=== PATIENT | female | born 1965 | race Caucasian/White ===

== ENCOUNTER 2017-10-07 06:32 | Emergency (ER) | payer OTHER ==
[~2017-10-07] VITALS: Ht 157.5 cm; Wt 59.0 kg
[~2017-10-07 06:32] MED LIST: ALBU90I INH; ALBU90OI61 INH; ALPR1; BUPR150T2; CEPH500 PO; CLIN300 PO; CLON.5; CODGUAEL PO; CRUTCH3 USE; DIAZ10; DIPATR PO; DIPH50 PO; DOXY100 PO; DULO30; ESCI10; ESCI20; ESTR.05PBW TOP; ESTR2; FENT75TP TOP; HYDACE10B PO; HYDACE5; HYDACE5 PO; HYDACE5325 PO; HYDPAM50 PO; HYOS0.375T; IBUHYD PO; L LYSINE; LAVAP17G PO; LEVSOD125; LEVSOD200; LEVSOD25; LITH300C; LITH300CA; LORA1; LORA2 PO; METH10; METO10 PO; NAPR500 PO; OLAN10; OMEP20ER; ONDA8 PO; OXYACE5T PO; OXYACE7.5T PO; OXYC10TA19 PO; PANT40; PROACE100 PO; PROM25; PROM25 PO; PROM25S PR; PROP10 PO; Prednisone10 MG PO; RXCYCL10 PO; RXDIPATR PO; RXHYD5325 PO; RXLORA1 PO; RXOXYACE PO; TRIA80TC TOP; TRIM100 PO; ZIPR80; [UNRECOGNIZED DRUG - REMARK]; [UNRECOGNIZED DRUG - REMARK]
[2017-10-07 07:34] LABS: BASOPHILS ABSOLUTE AUTO 0.07 K/mm3 (0.00-0.23); BASOPHILS PERCENT AUTO 1 % (0-2); EOSINOPHILS ABSOLUTE AUTO 0.19 K/mm3 (0.00-0.68); EOSINOPHILS PERCENT AUTO 2 % (0-6); Hematocrit 39.2 % (33.0-51.0); Hemoglobin 13.5 g/dL (11.5-16.0); IMMATURE GRAN ABSOLUTE AUTO 0.04 K/mm3 (0.00-0.10); IMMATURE GRAN PERCENT AUTO 0 % (0-1); LYMPHOCYTES ABSOLUTE AUTO 4.09 K/mm3 (0.84-5.20); LYMPHOCYTES PERCENT AUTO 32 % (21-46); MONOCYTES PERCENT AUTO 13 % (4-13); Mean Corpuscular HGB Conc 34.4 g/dL (31.5-36.5); Mean Corpuscular Volume 90 fL (80-100); NEUTROPHILS ABSOLUTE AUTO 6.77 K/mm3 (1.96-9.15); NEUTROPHILS PERCENT AUTO 53 % (41-73); Platelet Count 376 K/mm3 (150-400); RDW Coefficient Variation 12.3 % (11.7-14.2); RDW Standard Deviation 40.9 fL (35.1-46.3); Red Blood Cell Count 4.36 M/mm3 (3.80-5.20); White Blood Cell Count 12.86 K/mm3 (4.00-11.30)
[2017-10-07 07:51] LABS: Alanine Aminotransfer (ALT/SGP 26 U/L (12-78); Albumin, Blood 3.2 g/dL (3.4-5.0); Albumin/Globulin Ratio 0.8 (0.8-1.8); Alk Phos 110 U/L (50-136); Anion Gap 7 mmol/L (6-16); Aspartate Aminotrans (AST/SGOT 17 U/L (12-37); Bilirubin, Total 0.6 mg/dL (0.1-1.0); Blood Urea Nitrogen 8 mg/dL (8-24); Bun/Creatinine Ratio 12.8 (12.0-20.0); CO2, Blood 28 mmol/L (21-32); Calcium, Blood 8.8 mg/dL (8.5-10.1); Chloride, Blood 106 mmol/L (98-108); Creatinine, Blood 0.63 mg/dL (0.40-1.00); Globulin, Blood 3.8 g/dL (2.2-4.0); Glomerular Filtration Rate >60 (60-); Glucose, Blood 97 mg/dL (70-99); Potassium, Blood 3.4 mmol/L (3.5-5.5); Sodium, Blood 141 mmol/L (136-145)
[2017-10-07] MEDS ORDERED: LOPE2C PO (09:44)
[2017-10-07] MEDS ORDERED: PROM25 PO (09:44)
[2017-10-07] MEDS ORDERED: BENTYL10 MG PO (09:44)
== END 2017-10-07 10:01 | disposition home or self-care (01) ==
LOC: ER 06:32
PROVIDERS: Emergency Medicine
DX: A08.4 Viral intestinal infection, unspecified (principal); Z90.710 Acquired absence of both cervix and uterus; Z90.49 Acquired absence of other specified parts of digestive tract; Z90.89 Acquired absence of other organs; Z88.6 Allergy status to analgesic agent; Z88.1 Allergy status to other antibiotic agents; Z88.2 Allergy status to sulfonamides; Z88.5 Allergy status to narcotic agent; Z79.899 Other long term (current) drug therapy
CPT/HCPCS: 80053; 83690; 85025; 96361; 96374; 99284; J2405; J7030

== ENCOUNTER 2019-06-12 07:38 | Day surgery (SDC) | payer OTHER ==
[~2019-06-12] VITALS: Ht 157.5 cm; Wt 75.7 kg
[~2019-06-12 07:38] MED LIST changes: +ALBU2.5V5 INH; +ALBU90OI INH; +Adipex-P37.5 MG PO; +BENTYL10 MG PO; +CLON.5 PO; +CYAN1000I IM; +LOPE2C PO; +MONT10T PO; +OXYC10ER PO; +QVAR REDIHALE10.6 G1 INH; +SYNTHROID175 MCG PO
== END 2019-06-12 09:51 | disposition home or self-care (01) ==
LOC: ORSCSDS 07:38
PROVIDERS: Internal Medicine Gastroenterology
PROC: 0DJD8ZZ Inspection of Lower Intestinal Tract, Via Natural or Artificial Opening Endoscopic (ICD-10-PCS; principal; 2019-06-12 09:00)
DX: R10.32 Left lower quadrant pain (principal); Z86.010 Personal history of colon polyps; D64.9 Anemia, unspecified; R19.4 Change in bowel habit; Z79.899 Other long term (current) drug therapy
CPT/HCPCS: J0461; J2405; J2704; J7120

== ENCOUNTER → 2020-01-16 | Outpatient (CLI) | payer OTHER | END | disposition home or self-care (01) | LOC: LAB SHORT 12:04 → PLD 12:04 | DX: L98.9 Disorder of the skin and subcutaneous tissue, unspecified (principal) | CPT/HCPCS: 88305; 88312 ==

== ENCOUNTER → 2020-01-16 | Outpatient (CLI) | payer OTHER | END | disposition home or self-care (01) | LOC: LAB SHORT 11:58 → LAB 11:58 | DX: L08.0 Pyoderma (principal) | CPT/HCPCS: 87070; 87205 ==

== ENCOUNTER 2020-01-23 04:43 | Emergency (ER) | payer OTHER ==
[~2020-01-23] VITALS: Ht 157.5 cm; Wt 74.8 kg
[2020-01-23] MEDS ORDERED: METF500 (05:00)
== END 2020-01-23 05:08 | disposition home or self-care (01) ==
LOC: ER 04:43
DX: L03.211 Cellulitis of face (principal); M79.7 Fibromyalgia; Z88.1 Allergy status to other antibiotic agents; Z88.2 Allergy status to sulfonamides; Z88.5 Allergy status to narcotic agent; Z88.6 Allergy status to analgesic agent; Z79.899 Other long term (current) drug therapy
CPT/HCPCS: 99282

== ENCOUNTER 2020-02-20 20:53 | Emergency (ER) | payer OTHER ==
[~2020-02-20] VITALS: Ht 157.5 cm; Wt 77.1 kg
[~2020-02-20 20:53] MED LIST changes: +METF500
[2020-02-20] MEDS ORDERED: KETO200 PO (21:30)
[2020-02-20] MEDS ORDERED: MUPIROCIN1 GM TP (21:31)
[2020-02-20] MEDS ORDERED: KETO15TC TOP (21:32)
[2020-02-20] MEDS ORDERED: Triamcinolone A15 G3 (21:33)
[2020-02-20] MEDS ORDERED: ALLERCLEAR10 MG PO (22:16)
== END 2020-02-20 22:37 | disposition home or self-care (01) ==
LOC: ER 20:53
DX: L30.9 Dermatitis, unspecified (principal); E03.9 Hypothyroidism, unspecified; Z88.1 Allergy status to other antibiotic agents; Z88.2 Allergy status to sulfonamides; Z88.5 Allergy status to narcotic agent; Z88.6 Allergy status to analgesic agent; Z79.899 Other long term (current) drug therapy; Z79.84 Long term (current) use of oral hypoglycemic drugs
CPT/HCPCS: 99282

== ENCOUNTER → 2020-03-13 | Outpatient (CLI) | payer OTHER ==
[~2020-03-13] MED LIST changes: +ALLERCLEAR10 MG PO; +KETO15TC TOP; +KETO200 PO; +MUPIROCIN1 GM TP; +Triamcinolone A15 G3
== END | disposition home or self-care (01) ==
LOC: LAB SHORT 19:10 → LAB 19:10
DX: S50.911A Unspecified superficial injury of right forearm, initial encounter (principal); S50.912A Unspecified superficial injury of left forearm, initial encounter; S80.921A Unspecified superficial injury of right lower leg, initial encounter; S80.922A Unspecified superficial injury of left lower leg, initial encounter; S70.921A Unspecified superficial injury of right thigh, initial encounter; S70.922A Unspecified superficial injury of left thigh, initial encounter; L02.425 Furuncle of right lower limb; L02.426 Furuncle of left lower limb; L02.02 Furuncle of face; L21.8 Other seborrheic dermatitis; D22.5 Melanocytic nevi of trunk; D22.71 Melanocytic nevi of right lower limb, including hip; L81.8 Other specified disorders of pigmentation; B37.2 Candidiasis of skin and nail
CPT/HCPCS: 87070; 87205

== ENCOUNTER → 2020-05-23 | Outpatient (CLI) | payer OTHER | LOC: LAB 14:04 → LAB SHORT 14:04 | DX: L08.9 Local infection of the skin and subcutaneous tissue, unspecified (principal); L71.8 Other rosacea; B35.1 Tinea unguium; B35.3 Tinea pedis; L20.89 Other atopic dermatitis; L02.02 Furuncle of face; L29.8 Other pruritus; L21.8 Other seborrheic dermatitis | CPT/HCPCS: 87070; 87205 ==

== ENCOUNTER → 2021-04-18 | Outpatient (CLI) | payer OTHER | LOC: LAB 16:07 → LAB SHORT 16:07 | DX: B88.9 Infestation, unspecified (principal) | CPT/HCPCS: 87177; 87209 ==

== ENCOUNTER → 2021-05-13 | Outpatient (CLI) | payer OTHER | END | disposition home or self-care (01) | LOC: LAB SHORT 09:47 → LAB 09:47 | DX: R23.4 Changes in skin texture (principal) | CPT/HCPCS: 87210; 88305; 88312 ==

== ENCOUNTER 2023-06-11 11:21 | Inpatient (IN) | payer OTHER ==
[~2023-06-11] VITALS: Ht 157.5 cm; Wt 71.8 kg
[2023-06-11 12:21] LABS: BASOPHILS ABSOLUTE AUTO 0.11 K/mm3 (0.00-0.23); BASOPHILS PERCENT AUTO 1 % (0-2); EOSINOPHILS ABSOLUTE AUTO 0.19 K/mm3 (0.00-0.68); EOSINOPHILS PERCENT AUTO 1 % (0-6); Hematocrit 36.6 % (33.0-51.0); Hemoglobin 13.6 g/dL (11.5-16.0); IMMATURE GRAN ABSOLUTE AUTO 0.07 K/mm3 (0.00-0.10); IMMATURE GRAN PERCENT AUTO 0 % (0-1); LYMPHOCYTES ABSOLUTE AUTO 2.84 K/mm3 (0.84-5.20); LYMPHOCYTES PERCENT AUTO 16 % (21-46); MONOCYTES ABSOLUTE AUTO 1.67 K/mm3 (0.16-1.47); MONOCYTES PERCENT AUTO 9 % (4-13); Mean Corpuscular HGB 33.7 pg (26.0-34.0); Mean Corpuscular HGB Conc 37.2 g/dL (31.5-36.5); Mean Corpuscular Volume 91 fL (80-100); NEUTROPHILS ABSOLUTE AUTO 13.03 K/mm3 (1.96-9.15); NEUTROPHILS PERCENT AUTO 73 % (41-73); Platelet Count 379 K/mm3 (150-400); RDW Standard Deviation 52.9 fL (35.1-46.3); Red Blood Cell Count 4.03 M/mm3 (3.80-5.20); White Blood Cell Count 17.91 K/mm3 (4.00-11.30)
[2023-06-11 13:02] LABS: Albumin, Blood 2.6 g/dL (3.4-5.0); Albumin/Globulin Ratio 0.8 (0.8-1.8); Bilirubin, Total 25.4 mg/dL (0.1-1.0); Bun/Creatinine Ratio 16.7 (12.0-20.0); Calcium, Blood 8.8 mg/dL (8.5-10.1); Creatinine, Blood 0.6 mg/dL (0.40-1.00); Globulin, Blood 3.2 g/dL (2.2-4.0); Potassium, Blood 3.1 mmol/L (3.5-5.5); Total Protein, Blood 5.8 g/dL (6.4-8.2)
[2023-06-11 15:52] LABS: International Normalized Ratio 1.9; Prothrombin Time Results 19.2 Sec (9.7-11.5)
[2023-06-11 16:10] LABS: Bilirubin, Direct 18.6 mg/dL (0.0-0.3); Bilirubin, Indirect 4.6 mg/dL (0.1-0.7); Bilirubin, Total 23.2 mg/dL (0.1-1.0)
[2023-06-11] MEDS ORDERED: Doxycycline Mo100 M1 (18:17)
[2023-06-11] MEDS ORDERED: ALBENDAZOLE200 MG PO (18:19)
[2023-06-11] MEDS ORDERED: NITAZOXANIDE500 MG PO (18:21)
--- NOTE | 2023-06-11 18:50 | NUR ---
ADMIT AND SHIFT SUMMARY PATIENT ADMITTED TO MEDICAL FLOOR AT 1805. PATIENT ACTIVELY BLEEDING FROM NOSE. PATIENT STATES THAT SHE HAS BEEN BLEEDING SINCE THIS MORNING. PATIENT JAUNDICE. PATIENT STATES THIS IS NEW FOR HER. PATIENT STARTED SOME NEW MEDICATIONS RECENTLY AND FEELS THAT THIS IS WHAT IS CAUSING IT. PATIENT STATES SHE FEELS NAUSEATED BECAUSE SHE FEELS THE BLOOD DRIPIING DOWN INTO HER STOMACH. FAMILY AT BEDSIDE AND VERY ANXIOUS.
[2023-06-11 23:58] VITALS: BP 120/61
[2023-06-12 03:26] VITALS: BP 114/55
[2023-06-12 05:27] LABS: BASOPHILS ABSOLUTE AUTO 0.12 K/mm3 (0.00-0.23); BASOPHILS PERCENT AUTO 1 % (0-2); EOSINOPHILS ABSOLUTE AUTO 0.49 K/mm3 (0.00-0.68); EOSINOPHILS PERCENT AUTO 3 % (0-6); Hemoglobin 11.3 g/dL (11.5-16.0); IMMATURE GRAN ABSOLUTE AUTO 0.08 K/mm3 (0.00-0.10); IMMATURE GRAN PERCENT AUTO 1 % (0-1); LYMPHOCYTES ABSOLUTE AUTO 4.97 K/mm3 (0.84-5.20); LYMPHOCYTES PERCENT AUTO 30 % (21-46); MONOCYTES ABSOLUTE AUTO 1.93 K/mm3 (0.16-1.47); MONOCYTES PERCENT AUTO 12 % (4-13); Mean Corpuscular HGB 33.6 pg (26.0-34.0); Mean Corpuscular HGB Conc 36.5 g/dL (31.5-36.5); Mean Corpuscular Volume 92 fL (80-100); Mean Platelet Volume 11.2 fL (9.1-12.4); NEUTROPHILS ABSOLUTE AUTO 9.14 K/mm3 (1.96-9.15); NEUTROPHILS PERCENT AUTO 55 % (41-73); Platelet Count 363 K/mm3 (150-400); RDW Coefficient Variation 16.4 % (11.7-14.2); RDW Standard Deviation 54.6 fL (35.1-46.3); Red Blood Cell Count 3.36 M/mm3 (3.80-5.20); White Blood Cell Count 16.73 K/mm3 (4.00-11.30)
[2023-06-12 05:35] LABS: Source, Urine Clean Catch
[2023-06-12 05:41] LABS: Blood, Urine 4+ (Neg); Glucose Qualitative, Urine Neg (Neg); Ketones, Urine 1+ (Neg); Leukocyte Esterase, Urine 1+ (Neg); Nitrite, Urine Pos (Neg); Protein, Urine 2+ (Neg); Urobilinogen, Urine 4+ (Normal)
[2023-06-12 05:47] LABS: Appearance, Urine Hazy (Clear); Bilirubin, Urine 3+ (Neg); Color, Urine Amber (P-Yellow)
[2023-06-12 05:54] LABS: Amorphous Mod (0-Heavy); Bacteria Mod /hpf; Red Blood Cells, Urine 0-2 /hpf (0-2); Squamous Epithelial Cells Few /hpf (Few)
[2023-06-12 05:56] LABS: U Amphetamine Screen DETECTED; U Barbituate Screen Not Detected; U Benzodiazapine Screen Not Detected; U Buprenorphine Screen Not Detected; U Cannabinoids Screen Not Detected; U Cocaine Screen Not Detected; U Methadone Screen Not Detected; U Methamphetamine Screen DETECTED; U Opiates Screen Not Detected; U Oxycodone Screen Not Detected; U Phencyclidine Screen Not Detected; U Propoxyphene Screen Not Detected
[2023-06-12 06:09] LABS: Albumin, Blood 2.2 g/dL (3.4-5.0); Albumin/Globulin Ratio 0.8 (0.8-1.8); Bilirubin, Total 23.9 mg/dL (0.1-1.0); Bun/Creatinine Ratio 28.4 (12.0-20.0); Calcium, Blood 8.3 mg/dL (8.5-10.1); Creatinine, Blood 0.63 mg/dL (0.40-1.00); Globulin, Blood 2.6 g/dL (2.2-4.0); Potassium, Blood 3.1 mmol/L (3.5-5.5); Total Protein, Blood 4.8 g/dL (6.4-8.2)
--- NOTE | 2023-06-12 07:17 | NUR ---
SHIFT SUMMARY PT IS A&O X4, ON RA, VSS, NS INFUSING @ 75 ML/HR, JAUNDICED SKIN NOTED, ENULOSE STARTED. DENIES PAIN, NO EPISTAXIS NOTED SINCE I ASSUMED CARE, PT IS RESTING QUIETLY THIS AM, CALL LIGHT IN REACH, REPORT GIVEN TO DAY RN
[2023-06-12 07:29] VITALS: BP 125/70
--- NOTE | 2023-06-12 08:47 | NUR ---
PT REQUESTING ICE CHIPS. CALLED HOSPITALIST AND DISCUSSED NPO ORDER. HOSPITALIST GAVE OK FOR ICE CHIPS FOR NOW, STATES WILL REVIEW AND UPDATE WITH FURTHER ORDERS FOR DIET.
[2023-06-12 16:30] VITALS: BP 111/50
--- NOTE | 2023-06-12 18:20 | NUR ---
SHIFT SUMMARY: MEL IS A&OX4. VSS, NO ACUTE EVENTS THIS SHIFT. PT DID REPORT NAUSEA AND AN EPISODE OF EMESIS FOR WHICH SHE WAS MEDICATED PER MAR AND REPORTS RELIEF. SHE IS CURRENTLY TOLERATING PO INTAKE WELL. IV TO RIGHT HAND PATENT. SHE IS A ONE-PERSON STANDBY ASSIST AND REPORTS THAT THE LACTULOSE HAS PRODUCED BOWEL MOVEMENTS. SHE DENIES ANY DIFFICULTY URINATING. SHE IS SITTING UP IN BED WITH THE CALL LIGHT IN REACH, HER MOTHER IS AT BEDSIDE. WCTM UNTIL REPORT IS GIVEN TO DIRECTOR BUILDING RN.
--- NOTE | 2023-06-12 19:31 | NUR ---
NURSE NOTE RESTING QUIETLY. NO NOTED S/S ACUTE DISTRESS. CALL LIGHT IN REACH.
[2023-06-12 20:00] VITALS: BP 117/68
[2023-06-13 04:14] VITALS: BP 129/70
--- NOTE | 2023-06-13 04:24 | NUR ---
FIT MODEL SUMMARY VSS. SKIN REMAINS JAUNDICED. TOLERATING LACTULOSE. JOKES WITH NURSE AT HS. HAS BEEN RESTING QUIETLY WITH FEW INTERRUPTIONS. UP AD ARMANDO WITH STAND BY ASSIST. NO NOTED S/S ACUTE DISTRESS. CALL LIGHT IN REACH. WILL CONTINUE TO MONITOR.
[2023-06-13 04:48] LABS: Hemoglobin 10.5 g/dL (11.5-16.0); Mean Corpuscular HGB 34.2 pg (26.0-34.0); Mean Corpuscular HGB Conc 37.5 g/dL (31.5-36.5); Mean Corpuscular Volume 91 fL (80-100); Mean Platelet Volume 10.6 fL (9.1-12.4); Platelet Count 360 K/mm3 (150-400); RDW Coefficient Variation 16.4 % (11.7-14.2); RDW Standard Deviation 53.7 fL (35.1-46.3); Red Blood Cell Count 3.07 M/mm3 (3.80-5.20); White Blood Cell Count 14.75 K/mm3 (4.00-11.30)
[2023-06-13 05:18] LABS: Albumin, Blood 2.1 g/dL (3.4-5.0); Albumin/Globulin Ratio 0.8 (0.8-1.8); Bilirubin, Total 23.4 mg/dL (0.1-1.0); Bun/Creatinine Ratio 14.7 (12.0-20.0); Calcium, Blood 8.1 mg/dL (8.5-10.1); Creatinine, Blood 0.75 mg/dL (0.40-1.00); Globulin, Blood 2.6 g/dL (2.2-4.0); Potassium, Blood 3.2 mmol/L (3.5-5.5); Thyroid Stimulating Hormone 0.296 uIU/mL (0.360-4.800); Total Protein, Blood 4.7 g/dL (6.4-8.2)
[2023-06-13 07:48] VITALS: BP 135/73
[2023-06-13 15:07] VITALS: BP 129/73
--- NOTE | 2023-06-13 17:19 | NUR ---
SHIFT SUMMARY: MEL IS A&OX4. VSS, NO ACUTE EVENTS THIS SHIFT. SHE IS TOLERATING PO INTAKE WELL AND HAS REPORTED ONE BOWEL MOVEMENT. REQUESTED PT KEEP STAFF UPDATED ON BOWEL MOVEMENTS TO ALLOW HOSPITALIST TO TITRATE DOSE OF LACTULOSE. SHE IS A ONE-PERSON STANDBY ASSIST TO THE BATHROOM. IV TO R WRIST PATENT. SHE IS LYING IN BED WITH THE CALL LIGHT IN REACH. WCTM UNTIL REPORT IS GIVEN TO RAG CUTTING MACHINE OPERATOR RN.
[2023-06-13 19:42] VITALS: BP 127/77
--- NOTE | 2023-06-14 00:04 | NUR ---
NURSE NOTE C/O "BLOATNG", NAUSEA AND PAIN I ABD, AMS. ALSO C/O TINGLING OF ARMS. SKIN REMAINS JAUNDICED. ZOFRAN ADMIN EARLIER AND REGLAN ADMIN AT THIS TIME. MD NOTIFIED OF BLOATING AND PAIN. MD TO REVIEW CHART AND WILL PLACE ORDERS. CALL LIGHT IN REACH. WILL CONTINUE TO MONITOR
[2023-06-14 04:20] VITALS: BP 120/61
--- NOTE | 2023-06-14 05:12 | NUR ---
WINDOW SYSTEMS ADMINISTRATOR SUMMARY VSS. C/O INTERMITTENT NAUESA AND "BLOATING" EARLIER. MD WAS NOTIFIED AND MEDS ORDERED. ZOFRAN AND REGLAN IV AND SEMETHICONE PO ADMINISTERED. (SEE MAR FOR DETAILS). HAS BEEN RSETING QUIETLY WITH FEW INTERRUPTIONS SINCE. CALL LIGHT IN REACH. WILL CONTINUE TO MONITOR
[2023-06-14 05:58] LABS: Albumin, Blood 2.1 g/dL (3.4-5.0); Albumin/Globulin Ratio 0.8 (0.8-1.8); Bilirubin, Total 23.1 mg/dL (0.1-1.0); Bun/Creatinine Ratio 11.9 (12.0-20.0); Calcium, Blood 8.4 mg/dL (8.5-10.1); Creatinine, Blood 0.75 mg/dL (0.40-1.00); Globulin, Blood 2.6 g/dL (2.2-4.0); Potassium, Blood 3.1 mmol/L (3.5-5.5); Total Protein, Blood 4.7 g/dL (6.4-8.2)
[2023-06-14 06:08] LABS: HBSAG SCREEN Negative (Negative); HCV AB Non Reactive (Non Reactive); HEP A AB, IGM Negative (Negative); HEP B CORE AB, IGM Negative (Negative)
[2023-06-14 07:39] VITALS: BP 135/68
[2023-06-14 15:52] VITALS: BP 114/64
--- NOTE | 2023-06-14 18:13 | NUR ---
SHIFT SUMMARY FATIGUED, ORIENTED WHEN AWAKE. PLEASANT AND COOPERATIVE. WEAK, NAUSEATED, AND HEADACHE. MEDICATED PER EMAR. TOLERATING HEPATIC DIET AND LIQUIDS. SKIN JAUNDICED AND NOTED DISTENDED ABD. PATIENT REPORTS FEELING BLOATED. LACTULOSE INCREASED TO TID, NO BM THIS SHIFT. SBA WITH FWW TO AMBULATE IN HALLS. MOTHER VISITED DURING DAY SHIFT. TOOK A SHOWER. EATING DINNER AT THIS TIME.
[2023-06-14 19:58] VITALS: BP 120/64
[2023-06-14] MEDS ORDERED: MELATONIN5 M1 PO (20:21)
[2023-06-15 04:35] VITALS: BP 114/56
--- NOTE | 2023-06-15 04:41 | NUR ---
SUMMARY- PT A/O X3, WITHDRAWN, STATES SHE FEELS BAD WITH FLU LIKE SYMPTOMS; WEAK AND COLD. PT IS JAUNDICED. BEGINNING OF SHIFT WAS THROWING UP. MEDICATED WITH ZOFRAN WHICH SEEMED TO RESOLVE NAUSEA PT HAD SOME PO INTAKE A FEW HOURS LATER INCLUDING JUICE AND CRACKERS. PT HAD 2 BM AT 2300 AND 0100, PT STATES LG LOOSE AND BROWN, FLUSHED, SO RN COULD NOT VISUALIZE. SLEPT MOST OF THE NIGHT, BUT STATES SHE AWAKENS FREQ. REQ MELATONIN FOR FOLLOWING NIGHT. ORDER RECEIVED. ALSO RECEIVED ORDER FOR KCL REPLACEMENT THIS AM PER DR BILL. RN CALLED HOSPITALIST MENA AT 2100 06/14 WITH NO RETURN CALL. WILL REPORT TO DAY RN.
[2023-06-15 05:04] LABS: BASOPHILS ABSOLUTE AUTO 0.12 K/mm3 (0.00-0.23); BASOPHILS PERCENT AUTO 1 % (0-2); EOSINOPHILS ABSOLUTE AUTO 0.56 K/mm3 (0.00-0.68); EOSINOPHILS PERCENT AUTO 4 % (0-6); Hematocrit 30.4 % (33.0-51.0); Hemoglobin 11.1 g/dL (11.5-16.0); IMMATURE GRAN ABSOLUTE AUTO 0.14 K/mm3 (0.00-0.10); IMMATURE GRAN PERCENT AUTO 1 % (0-1); LYMPHOCYTES ABSOLUTE AUTO 4.71 K/mm3 (0.84-5.20); LYMPHOCYTES PERCENT AUTO 31 % (21-46); MONOCYTES ABSOLUTE AUTO 1.84 K/mm3 (0.16-1.47); MONOCYTES PERCENT AUTO 12 % (4-13); Mean Corpuscular HGB 34.2 pg (26.0-34.0); Mean Corpuscular HGB Conc 36.5 g/dL (31.5-36.5); Mean Corpuscular Volume 94 fL (80-100); Mean Platelet Volume 10.7 fL (9.1-12.4); NEUTROPHILS ABSOLUTE AUTO 7.89 K/mm3 (1.96-9.15); NEUTROPHILS PERCENT AUTO 52 % (41-73); Platelet Count 343 K/mm3 (150-400); RDW Coefficient Variation 17.2 % (11.7-14.2); RDW Standard Deviation 56.5 fL (35.1-46.3); Red Blood Cell Count 3.25 M/mm3 (3.80-5.20); White Blood Cell Count 15.26 K/mm3 (4.00-11.30)
[2023-06-15 05:43] LABS: Albumin, Blood 2.1 g/dL (3.4-5.0); Albumin/Globulin Ratio 0.8 (0.8-1.8); Bilirubin, Total 23.8 mg/dL (0.1-1.0); Bun/Creatinine Ratio 13.2 (12.0-20.0); Calcium, Blood 8.3 mg/dL (8.5-10.1); Creatinine, Blood 0.76 mg/dL (0.40-1.00); Globulin, Blood 2.5 g/dL (2.2-4.0); Potassium, Blood 3.1 mmol/L (3.5-5.5); Total Protein, Blood 4.6 g/dL (6.4-8.2)
[2023-06-15 07:45] VITALS: BP 116/61
--- NOTE | 2023-06-15 16:02 | NUR ---
NOTE PT RESTING QUIETLY. VSS. TOLERATING LAC TULOSE. APPEARS MORE CLEAR. CONVERSATION FASTER, LESS CONVOLUTED. PT MOTHER CAME AND MET WITH MEDICAL TEAM. DENIED PAIN AND NAUSEA. BM X2 TODAY. SKIN CONTINUES TO BE JAUNDICED. RA. BED LOW AND LOCKED. CALL LIGHT WITH IN REACH. CONTINUE POC.
[2023-06-15 16:35] VITALS: BP 121/69
[2023-06-15 20:07] VITALS: BP 127/74
[2023-06-16 03:19] VITALS: BP 125/73
--- NOTE | 2023-06-16 04:41 | NUR ---
SHIFT SUMMARY PATIENT MEDICATED FOR NASEA AND HEADACHE WITH SOME RELIEF FOR SEVERAL HOURS. NAUSEA RETURNED AND PATIENT VOMITED. ADDITIONAL ZOFRAN GIVEN. PATIENT REPORTS DISCOMFORT IN THE ABDOMENT INCREASING AND PUSHING UP TOWARD HER LUNGS. ABDOMEN CONTINUES TO BE DISTENDED BUT SOFT. BOWEL TONES NORMOACTIVEX4 QUADRANTS. SHE C/O EXCESSIVE GAS ALSO, MEDICATED PER EMAR WITH SIMETHICONE. BED IN LOW POSITION, CALL LIGHT IN REACH. PATIENT CALLS APPROPRIATLEY. WILL CONTINUE TO MONITOR.
[2023-06-16 05:44] LABS: Hematocrit 29.4 % (33.0-51.0); Hemoglobin 10.7 g/dL (11.5-16.0); Mean Corpuscular HGB 34.5 pg (26.0-34.0); Mean Corpuscular HGB Conc 36.4 g/dL (31.5-36.5); Mean Corpuscular Volume 95 fL (80-100); Mean Platelet Volume 10.9 fL (9.1-12.4); Platelet Count 348 K/mm3 (150-400); RDW Coefficient Variation 17.8 % (11.7-14.2); RDW Standard Deviation 58.2 fL (35.1-46.3); White Blood Cell Count 12.42 K/mm3 (4.00-11.30)
[2023-06-16 06:13] LABS: BAND PERCENT MAN 2 % (0-8); BASOPHILS PERCENT MAN 0 % (0-2); EOSINOPHILS ABSOLUTE MAN 0.74 K/mm3 (0.00-0.68); EOSINOPHILS PERCENT MAN 6 % (0-6); LYMPHOCYTES ABSOLUTE MAN 3.22 K/mm3 (0.84-5.20); LYMPHOCYTES PERCENT MAN 26 % (21-46); MONOCYTES ABSOLUTE MAN 0.86 K/mm3 (0.16-1.47); MONOCYTES PERCENT MAN 7 % (4-13); NEUTROPHILS ABSOLUTE MAN 7.57 K/mm3 (1.96-9.15); SEG NEUTROPHILS PERCENT MAN 59 % (41-73); TOTAL CELLS COUNTED 100
[2023-06-16 06:15] LABS: Albumin/Globulin Ratio 0.7 (0.8-1.8); Bilirubin, Total 23.4 mg/dL (0.1-1.0); Bun/Creatinine Ratio 11.8 (12.0-20.0); Calcium, Blood 8.6 mg/dL (8.5-10.1); Creatinine, Blood 0.85 mg/dL (0.40-1.00); Globulin, Blood 2.7 g/dL (2.2-4.0); Potassium, Blood 3.1 mmol/L (3.5-5.5); Total Protein, Blood 4.7 g/dL (6.4-8.2)
[2023-06-16 07:37] VITALS: BP 115/64
[2023-06-16 15:15] VITALS: BP 122/57
[2023-06-16 17:22] LABS: Mean Platelet Volume 10.9 fL (9.1-12.4); Platelet Count 334 K/mm3 (150-400)
[2023-06-16 17:41] LABS: International Normalized Ratio 1.68; Prothrombin Time Results 17.1 Sec (9.7-11.5)
--- NOTE | 2023-06-16 18:53 | NUR ---
NOTE PT LAERT. SHE HAS HAD A ROUGH DAY TODAY. NOT FEELING WELL YESTERDAY. SHE WAS STARTED ON LASIX AND ALDACTONE TODAY. POOR APPETITE. NUASEA HAS BEEN PROBLEMATIC FOR HER. ZOFRAN 8MG GIVEN IV X1. DIDN'T HELP MUCH. FAMILY VISITED THIS EVENING. NO REPORTED BM TODAY. VSS. MEDICATED FOR GENERALIZED BODY ACHE WITH IBUPROFEN. UP AD ARMANDO IN ROOM. GAIT STEADY. CONTINUE POC.
[2023-06-16 21:04] VITALS: BP 111/51
--- NOTE | 2023-06-17 03:21 | NUR ---
MOLD ENGRAVER SUMMARY VSS. LETHARGIC WITH INTERMITTENT N/V. HAS RECEIVED ANTINAUSEA MEDS INTERMITTENTLY THROUGH SHIFT - SEE MAR FOR DETAILS. HOB ELEVATED FOR BREATHING COMFORT AND POTENTIAL ASPIRATION. CURRENTLY RESTING QUIETLY. CALL LIGHT IN REACH. WILL CONTINUE TO MONITOR.
[2023-06-17 04:58] VITALS: BP 117/62
[2023-06-17 06:34] LABS: Albumin, Blood 2.1 g/dL (3.4-5.0); Albumin/Globulin Ratio 0.8 (0.8-1.8); Bilirubin, Total 23.7 mg/dL (0.1-1.0); Calcium, Blood 8.4 mg/dL (8.5-10.1); Creatinine, Blood 0.87 mg/dL (0.40-1.00); Globulin, Blood 2.8 g/dL (2.2-4.0); Potassium, Blood 3.8 mmol/L (3.5-5.5); Total Protein, Blood 4.9 g/dL (6.4-8.2)
[2023-06-17 07:22] VITALS: BP 131/74
[2023-06-17 15:38] VITALS: BP 117/60
--- NOTE | 2023-06-17 18:39 | NUR ---
SHIFT SUMMARY A/O X4- SLOW TO RESPOND, LETHARGIC AT TIMES. AMBULATING WELL W/ STAND BY ASSIST. PATIENT SKIN APPEARS MORE JAUNDICE THROUGHOUT THE SHIFT, MD AWARE. UNABLE TO DO PARACENTESIS DUE TO PT NOT HAVING ENOUGH FLUID TO REMOVE PER IMAGING. ABDOMEN IS MODERATLY DISTENDED AND TENDER. BOWEL MOVEMENTS X2 TODAY. TOLERATED PO INTAKE THROUGHOUT THE SHIFT. WILL REPORT TO ONCOMING RN.
[2023-06-17 22:34] VITALS: BP 134/68
[2023-06-18 03:42] VITALS: BP 109/53
--- NOTE | 2023-06-18 04:42 | NUR ---
END OF SHIFT SUMMARY PT CALM AND COOPERATIVE WITH CARE PROVIDED. PT ABLE TO MAKE NEEDS KNOWN. PT REQUESTED PRN PAIN AND ANTIEMETIC MEDICATION. NO EMESIS ON STIPPLER. PT SLEPT IN BED, BUT LATER TRANSFERED TO THE RECLINER CHAIR FOR COMFORT. VS WNL, AFEBRILE. RESP EVEN AND UNLABORED. ABD IS DISTENDED, BOWEL TONES HEARD IN ALL 4 QUADS, SLIGHT TENDERNESS TO RUQ AND RLQ. JAUNDICE SKIN TONE IS PRESENT. 0440: PT RESTING IN BED COMFORTABLY, APPEARS TO BE SLEEPING WELL. FLUIDS ENCOURAGED THROUGHOUT THE SHIFT. CALL LIGHT WITHIN REACH, WCTM.
[2023-06-18 05:37] LABS: BASOPHILS ABSOLUTE AUTO 0.12 K/mm3 (0.00-0.23); BASOPHILS PERCENT AUTO 1 % (0-2); EOSINOPHILS ABSOLUTE AUTO 0.47 K/mm3 (0.00-0.68); EOSINOPHILS PERCENT AUTO 3 % (0-6); Hematocrit 29.3 % (33.0-51.0); Hemoglobin 10.7 g/dL (11.5-16.0); IMMATURE GRAN ABSOLUTE AUTO 0.16 K/mm3 (0.00-0.10); IMMATURE GRAN PERCENT AUTO 1 % (0-1); LYMPHOCYTES ABSOLUTE AUTO 4.25 K/mm3 (0.84-5.20); LYMPHOCYTES PERCENT AUTO 30 % (21-46); MONOCYTES ABSOLUTE AUTO 2.15 K/mm3 (0.16-1.47); MONOCYTES PERCENT AUTO 15 % (4-13); Mean Corpuscular HGB 34.5 pg (26.0-34.0); Mean Corpuscular HGB Conc 36.5 g/dL (31.5-36.5); Mean Corpuscular Volume 95 fL (80-100); Mean Platelet Volume 10.6 fL (9.1-12.4); NEUTROPHILS ABSOLUTE AUTO 7.04 K/mm3 (1.96-9.15); NEUTROPHILS PERCENT AUTO 50 % (41-73); Platelet Count 377 K/mm3 (150-400); RDW Coefficient Variation 18.6 % (11.7-14.2); RDW Standard Deviation 61.3 fL (35.1-46.3); White Blood Cell Count 14.19 K/mm3 (4.00-11.30)
[2023-06-18 05:39] LABS: Albumin, Blood 2.1 g/dL (3.4-5.0); Albumin/Globulin Ratio 0.8 (0.8-1.8); Bilirubin, Total 23.3 mg/dL (0.1-1.0); Calcium, Blood 8.6 mg/dL (8.5-10.1); Creatinine, Blood 1.17 mg/dL (0.40-1.00); Globulin, Blood 2.6 g/dL (2.2-4.0); Potassium, Blood 3.6 mmol/L (3.5-5.5); Total Protein, Blood 4.7 g/dL (6.4-8.2)
[2023-06-18 07:43] VITALS: BP 99/50
[2023-06-18 09:25] VITALS: BP 136/68
[2023-06-18 13:08] LABS: U Amphetamine Screen Not Detected; U Barbituate Screen Not Detected; U Benzodiazapine Screen Not Detected; U Buprenorphine Screen Not Detected; U Cannabinoids Screen Not Detected; U Cocaine Screen Not Detected; U Methadone Screen Not Detected; U Methamphetamine Screen Not Detected; U Opiates Screen Not Detected; U Oxycodone Screen Not Detected; U Phencyclidine Screen Not Detected; U Propoxyphene Screen Not Detected
[2023-06-18 15:08] VITALS: BP 128/70
[2023-06-18 19:32] VITALS: BP 111/48
--- NOTE | 2023-06-18 19:36 | NUR ---
SHIFT SUMMARY PT A&OX4. PT STILL C/O OF NAUSEA AND WAS MEDICATED PER EMAR. NO EPISODES OF VOMMITING TODAY. PT ABLE TO TOLERATE SOME FOOD BUT STATED IT DOES CAUSE HER TO FEEL NAUSOUS. PT AMBULATED IN LU. PT VERBALIZED HAVING A LARGE BM THIS EVENING. VSS. PT SKIN JAUNDICED AND C/O ABD TENDERNESS. MEDICATED FOR PAIN PER EMAR. BED IN LOWEST POSITION AND CALL LIGHT IN REACH.
[2023-06-19 05:18] LABS: Albumin, Blood 2.2 g/dL (3.4-5.0); Albumin/Globulin Ratio 0.8 (0.8-1.8); Bun/Creatinine Ratio 14.2 (12.0-20.0); Calcium, Blood 8.5 mg/dL (8.5-10.1); Creatinine, Blood 1.06 mg/dL (0.40-1.00); Globulin, Blood 2.7 g/dL (2.2-4.0); Potassium, Blood 3.9 mmol/L (3.5-5.5); Total Protein, Blood 4.9 g/dL (6.4-8.2)
--- NOTE | 2023-06-19 06:39 | NUR ---
Shift Summary Pt c/o significant nausea t/o the shift. Rcvd PRN IV Zofran but her IV went bad. A new IV was placed in her RAC but this IV was immediatly painful and later had to be d/c due to increasing pain while flushing. Per charge nurse pt will need a Powerglide because her veins are too deep to place another IV. Called hospitalist who ordered PO Zofran. Pt not sleeping well d/t nausea but did get some extended sleep starting around 0515. Pt states she had one large BM yesterday after a long period of constipation beforehand. She took her PM dose of Lactulose. No vomitting t/o shift.
[2023-06-19 07:40] VITALS: BP 128/65
[2023-06-19 16:34] VITALS: BP 122/58
[2023-06-19 19:42] VITALS: BP 125/67
[2023-06-20 04:03] VITALS: BP 108/53
[2023-06-20 05:00] LABS: BASOPHILS ABSOLUTE AUTO 0.09 K/mm3 (0.00-0.23); BASOPHILS PERCENT AUTO 1 % (0-2); EOSINOPHILS ABSOLUTE AUTO 0.36 K/mm3 (0.00-0.68); EOSINOPHILS PERCENT AUTO 3 % (0-6); Hematocrit 28.8 % (33.0-51.0); Hemoglobin 10.5 g/dL (11.5-16.0); IMMATURE GRAN ABSOLUTE AUTO 0.15 K/mm3 (0.00-0.10); IMMATURE GRAN PERCENT AUTO 1 % (0-1); LYMPHOCYTES ABSOLUTE AUTO 3.33 K/mm3 (0.84-5.20); LYMPHOCYTES PERCENT AUTO 24 % (21-46); MONOCYTES ABSOLUTE AUTO 2.18 K/mm3 (0.16-1.47); MONOCYTES PERCENT AUTO 16 % (4-13); Mean Corpuscular HGB 34.3 pg (26.0-34.0); Mean Corpuscular HGB Conc 36.5 g/dL (31.5-36.5); Mean Corpuscular Volume 94 fL (80-100); Mean Platelet Volume 10.4 fL (9.1-12.4); NEUTROPHILS PERCENT AUTO 55 % (41-73); Platelet Count 327 K/mm3 (150-400); RDW Coefficient Variation 19.1 % (11.7-14.2); RDW Standard Deviation 64.5 fL (35.1-46.3); Red Blood Cell Count 3.06 M/mm3 (3.80-5.20); White Blood Cell Count 13.71 K/mm3 (4.00-11.30)
--- NOTE | 2023-06-20 05:15 | NUR ---
SUMMARY- PT A/O X3-4. INDEPENDANT IN ROOM. WITHDRAWN, FEELS WEAK AND UNWELL. PT IS SEVERELY JAUNDICED. USING LACTALOSE, HAD 2 BM'S LAST NIGHT. PT DESCRIBES SOFT AND LIGHT POOL IN COLOR. TOLERATING FLUIDS. FREQ C/O NAUSEA, ALTERNATING PHENERGAN PO WITH ZOFRAN AND REGLAN IV. PHEN. PO WORKS THE BEST. PLAN TO [place] TO [facility] IN THE MORNING. PT HAD BOUTS OF SLEEP ON/OFF T/O THE NIGHT.
[2023-06-20 05:28] LABS: Albumin/Globulin Ratio 0.7 (0.8-1.8); Bun/Creatinine Ratio 13.2 (12.0-20.0); Calcium, Blood 8.2 mg/dL (8.5-10.1); Creatinine, Blood 1.06 mg/dL (0.40-1.00); Free Thyroxine 2.3 ng/dL (0.70-1.60); Globulin, Blood 2.9 g/dL (2.2-4.0); Potassium, Blood 3.9 mmol/L (3.5-5.5); Total Protein, Blood 4.9 g/dL (6.4-8.2); Triiodothyronine, Free 1.03 pg/mL (2.18-3.98)
--- NOTE | 2023-06-20 07:50 | NUR ---
ASSUMED CARE: PT WAS STANDING IN BATHROOM ATTEMPTING TO CHANGE ATTENDS AFTER AN INCONTINENCE EPISODE. URINE IS BRIGHT YELLOW. PT'S SKIN ALSO JAUNDICE THROUGHOUT. STATES ABDOMINAL TENDERNESS BUT DENIES FURTHER NEEDS AT THIS TIME.
[2023-06-20 08:21] VITALS: BP 113/57
[2023-06-20 15:38] VITALS: BP 103/57
--- NOTE | 2023-06-20 17:26 | NUR ---
SHIFT SUMMARY: PT AWAITING TRANSFER TO ANOTHER HOSPITAL FOR LIVER BIOPSY. INDEPENDENT IN ROOM. NO LACTULOSE GIVEN THIS SHIFT DUE TO HOLDING PARAMETERS AND FREQUENT BOWEL MOVEMENTS. FAMILY AT BEDSIDE. MEDICATED X1 FOR PAIN AND NAUSEA
[2023-06-20 19:09] VITALS: BP 111/50
[2023-06-21 04:39] VITALS: BP 110/58
--- NOTE | 2023-06-21 05:11 | NUR ---
SUMMARY- PT A/O X4, INDEPENDANT IN ROOM. STATES SHE HAD ONE BM LAST NIGHT- STATES SHE SLEPT WELL. MEDICATED WITH PHENERGAN PO HS FOR NAUSEA, A FEW HOURS LATER ATE A TURKEY SANDWICH AND TOLERATED WELL. PT INCONT OF BLADDER ONCE RELATED TO STRESS INCONT, OCC INCONT STOOL. MICONAZOLE TO MARIAN FOR YEAST APPEARING RASH. AWAITING TX TO FACILITY FOR LIVER BIOSPY. WILL REPORT TO DAY RN
[2023-06-21 05:26] LABS: BASOPHILS ABSOLUTE AUTO 0.15 K/mm3 (0.00-0.23); BASOPHILS PERCENT AUTO 1 % (0-2); EOSINOPHILS ABSOLUTE AUTO 0.52 K/mm3 (0.00-0.68); EOSINOPHILS PERCENT AUTO 3 % (0-6); Hematocrit 30.1 % (33.0-51.0); Hemoglobin 10.8 g/dL (11.5-16.0); IMMATURE GRAN ABSOLUTE AUTO 0.18 K/mm3 (0.00-0.10); IMMATURE GRAN PERCENT AUTO 1 % (0-1); LYMPHOCYTES ABSOLUTE AUTO 3.51 K/mm3 (0.84-5.20); LYMPHOCYTES PERCENT AUTO 23 % (21-46); MONOCYTES ABSOLUTE AUTO 2.39 K/mm3 (0.16-1.47); MONOCYTES PERCENT AUTO 16 % (4-13); Mean Corpuscular HGB 34.4 pg (26.0-34.0); Mean Corpuscular HGB Conc 35.9 g/dL (31.5-36.5); Mean Corpuscular Volume 96 fL (80-100); Mean Platelet Volume 10.6 fL (9.1-12.4); NEUTROPHILS ABSOLUTE AUTO 8.54 K/mm3 (1.96-9.15); NEUTROPHILS PERCENT AUTO 56 % (41-73); Platelet Count 357 K/mm3 (150-400); RDW Standard Deviation 65.2 fL (35.1-46.3); Red Blood Cell Count 3.14 M/mm3 (3.80-5.20); White Blood Cell Count 15.29 K/mm3 (4.00-11.30)
[2023-06-21 06:09] LABS: Albumin, Blood 2.1 g/dL (3.4-5.0); Albumin/Globulin Ratio 0.8 (0.8-1.8); Bilirubin, Total 24.6 mg/dL (0.1-1.0); Bun/Creatinine Ratio 12.5 (12.0-20.0); Calcium, Blood 8.3 mg/dL (8.5-10.1); Creatinine, Blood 1.2 mg/dL (0.40-1.00); Globulin, Blood 2.8 g/dL (2.2-4.0); Potassium, Blood 3.9 mmol/L (3.5-5.5); Total Protein, Blood 4.9 g/dL (6.4-8.2)
[2023-06-21 07:38] VITALS: BP 116/66
[2023-06-21 11:50] LABS: International Normalized Ratio 1.69; Prothrombin Time Results 17.2 Sec (9.7-11.5)
[2023-06-21 16:17] VITALS: BP 132/73
[2023-06-21 19:35] VITALS: BP 106/56
[2023-06-21 23:30] LABS: Source, Urine Clean Catch
[2023-06-22 00:01] LABS: Blood, Urine 1+ (Neg); Glucose Qualitative, Urine Neg (Neg); Ketones, Urine 1+ (Neg); Leukocyte Esterase, Urine 1+ (Neg); Nitrite, Urine Pos (Neg); Protein, Urine 2+ (Neg); Specific Gravity, Urine 1.025 (1.003-1.022); Urobilinogen, Urine 4+ (Normal)
[2023-06-22 00:20] LABS: Appearance, Urine Hazy (Clear); Bilirubin, Urine 3+ (Neg); Color, Urine Orange (P-Yellow)
[2023-06-22 00:23] LABS: Amorphous Light (0-Heavy); Bacteria Mod /hpf; Mucus Light (0-Heavy); Red Blood Cells, Urine 0-2 /hpf (0-2); Squamous Epithelial Cells Few /hpf (Few); White Blood Cells, Urine 0-2 /hpf (0-5)
[2023-06-22 04:23] VITALS: BP 117/70
--- NOTE | 2023-06-22 05:35 | NUR ---
SUMMARY- PT A/O X4, INDEPENDANT TO BATHROOM. CONT/INCONT OF URINE, STRESS INCONT. URINE DARK ORANGE AND CONCENTRATED. UA SENT AND POSITIVE- SENT FOR CX. PT HAS BEEN NPO SINCE GA FOR UPCOMING BX. MIDLINE IS ECCHYMOTIC, SWOLLEN AND TENDER DISTAL TO INSERTION SITE. CHARGE GEORGI NIC ASSESSED WELL AND WILL PASS ON TO DAY CHARGE. FLUSHES WELL AND PT CAN TASTE SALINE, BUT IS IS PAINFUL WITH FLUSH AND PAINFUL TO TOUCH. PT REMAINS SEVERELY JAUNDICED. PT S/O NAUSEA, MEDICATED WITH PHENREGAN PO HS. ALSO MEDICATED WITH Z-QUIL HS, PT APPEARED TO HAVE SLEPT WELL THROUGH THE NIGHT. WILL REPORT TO DAYS
[2023-06-22 06:09] LABS: BASOPHILS ABSOLUTE AUTO 0.15 K/mm3 (0.00-0.23); BASOPHILS PERCENT AUTO 1 % (0-2); EOSINOPHILS ABSOLUTE AUTO 0.56 K/mm3 (0.00-0.68); EOSINOPHILS PERCENT AUTO 4 % (0-6); Hematocrit 29.5 % (33.0-51.0); Hemoglobin 10.5 g/dL (11.5-16.0); IMMATURE GRAN ABSOLUTE AUTO 0.19 K/mm3 (0.00-0.10); IMMATURE GRAN PERCENT AUTO 1 % (0-1); LYMPHOCYTES ABSOLUTE AUTO 3.61 K/mm3 (0.84-5.20); LYMPHOCYTES PERCENT AUTO 23 % (21-46); MONOCYTES PERCENT AUTO 16 % (4-13); Mean Corpuscular HGB 34.2 pg (26.0-34.0); Mean Corpuscular HGB Conc 35.6 g/dL (31.5-36.5); Mean Corpuscular Volume 96 fL (80-100); Mean Platelet Volume 10.7 fL (9.1-12.4); NEUTROPHILS ABSOLUTE AUTO 8.53 K/mm3 (1.96-9.15); NEUTROPHILS PERCENT AUTO 55 % (41-73); Platelet Count 330 K/mm3 (150-400); RDW Coefficient Variation 19.2 % (11.7-14.2); RDW Standard Deviation 65.6 fL (35.1-46.3); Red Blood Cell Count 3.07 M/mm3 (3.80-5.20); White Blood Cell Count 15.44 K/mm3 (4.00-11.30)
[2023-06-22 06:42] LABS: Albumin/Globulin Ratio 0.7 (0.8-1.8); Bilirubin, Total 23.9 mg/dL (0.1-1.0); Bun/Creatinine Ratio 15.9 (12.0-20.0); Calcium, Blood 8.6 mg/dL (8.5-10.1); Creatinine, Blood 1.13 mg/dL (0.40-1.00); Globulin, Blood 2.7 g/dL (2.2-4.0); Potassium, Blood 3.9 mmol/L (3.5-5.5); Total Protein, Blood 4.7 g/dL (6.4-8.2)
[2023-06-22 08:19] VITALS: BP 115/66
[2023-06-22 11:16] VITALS: BP 120/70
[2023-06-22 12:44] VITALS: BP 120/70
[2023-06-22 14:31] VITALS: BP 106/62
--- NOTE | 2023-06-22 18:40 | NUR ---
SHIFT SUMMARY PT A&OX4 AND PLEASANT. PT WENT FOR TRANSJUGULAR LIVER BIOPSY IN THE MORNING. PT DROWSY AFTER PROCEDURE AND SLEPT FOR MOST OF AFTERNOON. NO C/O PAIN OR NAUSEA TODAY. VSS. PT RECIEVED IV ABX TODAY. BED ALARM ON D/T DROWINESS AFTER PROCEDURE. BED IN LOWEST POSITION AND CALL LIGHT IN REACH.
[2023-06-22 19:43] VITALS: BP 136/75
[2023-06-23 02:31] VITALS: BP 135/77
--- NOTE | 2023-06-23 06:21 | NUR ---
SHIFT SUMMARY [facility] PT A/O X 4. PLEASANT AND COOPERATIVE WITH CARE. NO ACUTE CHANGES TO REPORT. PT HAD INTERJUGULAR LIVER BIOPSY PERFORMED YESTERDAY. PT HAD MILD C/O OF PAIN AT INSERTION SITE AND WAS MEDICATED PER EMAR. PT HAS JAUNDICED APPEARANCE T/O FROM HEPATITIS AND ELEVATED BILIRUBIN OF 23.9. PT MOM WAS IN ROOM FOR FIRST FEW HOURS AT BEGINNING OF SHIFT. PT HAS PG IN ADOLFO THAT DOES NOT DRAW. PT IS CURRENTLY RESTING WITH BED IN LOWEST POSITION, AND CALL LIGHT WITHIN REACH.
[2023-06-23 07:21] LABS: BASOPHILS ABSOLUTE AUTO 0.12 K/mm3 (0.00-0.23); BASOPHILS PERCENT AUTO 1 % (0-2); EOSINOPHILS ABSOLUTE AUTO 0.43 K/mm3 (0.00-0.68); EOSINOPHILS PERCENT AUTO 3 % (0-6); Hematocrit 29.4 % (33.0-51.0); Hemoglobin 10.3 g/dL (11.5-16.0); IMMATURE GRAN ABSOLUTE AUTO 0.19 K/mm3 (0.00-0.10); IMMATURE GRAN PERCENT AUTO 1 % (0-1); LYMPHOCYTES ABSOLUTE AUTO 3.36 K/mm3 (0.84-5.20); LYMPHOCYTES PERCENT AUTO 21 % (21-46); MONOCYTES ABSOLUTE AUTO 2.81 K/mm3 (0.16-1.47); MONOCYTES PERCENT AUTO 18 % (4-13); Mean Corpuscular HGB 33.9 pg (26.0-34.0); Mean Corpuscular Volume 97 fL (80-100); Mean Platelet Volume 10.5 fL (9.1-12.4); NEUTROPHILS ABSOLUTE AUTO 9.05 K/mm3 (1.96-9.15); NEUTROPHILS PERCENT AUTO 57 % (41-73); Platelet Count 327 K/mm3 (150-400); RDW Coefficient Variation 19.3 % (11.7-14.2); RDW Standard Deviation 66.7 fL (35.1-46.3); Red Blood Cell Count 3.04 M/mm3 (3.80-5.20); White Blood Cell Count 15.96 K/mm3 (4.00-11.30)
[2023-06-23 07:36] VITALS: BP 119/69
[2023-06-23 07:44] LABS: Albumin, Blood 1.9 g/dL (3.4-5.0); Albumin/Globulin Ratio 0.7 (0.8-1.8); Bilirubin, Total 24.5 mg/dL (0.1-1.0); Bun/Creatinine Ratio 18.4 (12.0-20.0); Calcium, Blood 8.7 mg/dL (8.5-10.1); Creatinine, Blood 1.14 mg/dL (0.40-1.00); Globulin, Blood 2.9 g/dL (2.2-4.0); Potassium, Blood 3.8 mmol/L (3.5-5.5); Total Protein, Blood 4.8 g/dL (6.4-8.2)
[2023-06-23 15:48] VITALS: BP 129/70
[2023-06-23 19:13] VITALS: BP 121/68
--- NOTE | 2023-06-23 19:33 | NUR ---
SHIFT SUMMARY PT A&OX4 AND PLEASANT. NO ACUTE CHANGES. PT VERBALIZED FEELING IMPROVED TODAY. NO C/O NAUSEA AND NO EPISODES OF VOMMITTING. TOLERATING MEALS. PT REPORTS NO BM BUT IS RECIEVING LACTULOSE. BED IN LOWEST POSITION AND CALL LIGHT IN REACH.
[2023-06-24 03:56] VITALS: BP 132/76
--- NOTE | 2023-06-24 04:58 | NUR ---
CALL TO DR WELLER, PATIENT HAVING CHANGED ABDOMINAL PAIN TO LOWER LEFT QUADRANT WITH PRESSURE, INTERMITTENT SHARP PAIN, ALSO EDEMA INCREASING TO BILAT LE UP TO KNEES. ALBUMIN LEVEL 1.9 ORDERS RECIEVED FOR ALBUMIN 25G BAG NOW AND FENTANYL 25-50 MCG IV Q 4 HR PRN PAIN.
--- NOTE | 2023-06-24 06:38 | NUR ---
SHIFT SUMMARY PATIENT WITH HEADACHE, ABDOMINAL PAIN, NAUSEA AND ANXIETY THROUGH THE NIGHT. MEDICATED PER EMAR, LITTLE RELIEF TO HEADACHE. ABDOMINAL PAIN HAS CHANGED TO LEFT LOWER QUADRAN, FENTANLY REDUCED PAIN. PATIENT ALSO HAD 2 LO COLORED STOOLS, 1 LARGE AND 1 SMALL. BED IN LOW POSITION, BED ALARM ON, CALL LIGHT IN REACH. WILL CONTINUE TO MONITOR.
[2023-06-24 07:10] LABS: IMMUNOGLOBULIN G, QN, SERUM 1439 mg/dL (586-1602)
[2023-06-24 07:42] VITALS: BP 125/72
[2023-06-24 08:20] LABS: BASOPHILS ABSOLUTE AUTO 0.11 K/mm3 (0.00-0.23); BASOPHILS PERCENT AUTO 1 % (0-2); EOSINOPHILS ABSOLUTE AUTO 0.46 K/mm3 (0.00-0.68); EOSINOPHILS PERCENT AUTO 3 % (0-6); Hematocrit 29.8 % (33.0-51.0); Hemoglobin 10.7 g/dL (11.5-16.0); IMMATURE GRAN PERCENT AUTO 1 % (0-1); LYMPHOCYTES ABSOLUTE AUTO 2.99 K/mm3 (0.84-5.20); LYMPHOCYTES PERCENT AUTO 20 % (21-46); MONOCYTES ABSOLUTE AUTO 2.45 K/mm3 (0.16-1.47); MONOCYTES PERCENT AUTO 16 % (4-13); Mean Corpuscular HGB 34.5 pg (26.0-34.0); Mean Corpuscular HGB Conc 35.9 g/dL (31.5-36.5); Mean Corpuscular Volume 96 fL (80-100); Mean Platelet Volume 10.6 fL (9.1-12.4); NEUTROPHILS ABSOLUTE AUTO 8.79 K/mm3 (1.96-9.15); NEUTROPHILS PERCENT AUTO 59 % (41-73); Platelet Count 285 K/mm3 (150-400); RDW Coefficient Variation 19.1 % (11.7-14.2); RDW Standard Deviation 66.3 fL (35.1-46.3)
[2023-06-24 08:50] LABS: Albumin/Globulin Ratio 0.7 (0.8-1.8); Bilirubin, Total 23.6 mg/dL (0.1-1.0); Calcium, Blood 8.6 mg/dL (8.5-10.1); Creatinine, Blood 1.12 mg/dL (0.40-1.00); Globulin, Blood 2.8 g/dL (2.2-4.0); Potassium, Blood 3.7 mmol/L (3.5-5.5); Total Protein, Blood 4.8 g/dL (6.4-8.2)
--- NOTE | 2023-06-24 09:00 | NUR ---
pt laying in bed awake, a/ox3, cooperative with care, follows commands well, lungs are clear t/o, resp even and unlabored, no cough noted, hrr, edema noted to b/l le, up to bathroom to void, skin has yeast rash to cyn area per pt, and is very jaundiced, no open wounds, maew, weak, vazquez, call light in reach.
--- NOTE | 2023-06-24 16:00 | NUR ---
Upon receiving a referral for spiritual care, I visited the patient. Her mother, Paola is bedside for some of our conversation. 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 She tells me about the other stressors in her life and her spiritual distress. I provide therapeutic listening, theological insights, gentle gambling counsellor and prayer. She responded well and was moved to tears by the prayer that involved some renewal of her deysi. She voices great appreciation and showed signs of increased peace.
[2023-06-24 16:05] VITALS: BP 121/70
--- NOTE | 2023-06-24 18:25 | NUR ---
mom has been with pt most of the day, Dr. Garibay stopped by to speak with her, pt up to bathroom pretty indep. no further changes this shift. call light in reach.
[2023-06-24 19:37] VITALS: BP 121/67
[2023-06-25 03:43] VITALS: BP 107/63
[2023-06-25 07:18] VITALS: BP 125/70
--- NOTE | 2023-06-25 07:25 | NUR ---
SHIFT SUMMARY PATIENT WITH INCREASING BILAT LEG PAIN THROUGH NIGHT. NOW 4+ PEDAL EDEMA, 2+TO ANKLES, NON PITTING TO KNEES. PATIENT STATES SHE DOES HAVE ABDOMINAL PRESSURE THIS MORNING BUT DENIES SHORTNESS OF BREAT. SHE ASLO HAS BEEN INCONTINENT THROUGH THE NIGHT. GOOD FLUID ORAL INTAKE, HOWEVER URINE IS DARKER NOW BROWN. MEDICATED PER EMAR FOR ANXIETY AND SLEEP BUT PATIENT WOKE OFTEN THROUGH NIGHT TO URINATE. BED ALRM ON, CALL LIGHT IN REACH. PATIENT CALLING APPROPRIATELY THROUGH THE NIGHT.
[2023-06-25 07:43] LABS: BASOPHILS ABSOLUTE AUTO 0.08 K/mm3 (0.00-0.23); BASOPHILS PERCENT AUTO 1 % (0-2); EOSINOPHILS PERCENT AUTO 2 % (0-6); Hematocrit 28.2 % (33.0-51.0); Hemoglobin 9.9 g/dL (11.5-16.0); IMMATURE GRAN PERCENT AUTO 1 % (0-1); LYMPHOCYTES ABSOLUTE AUTO 2.09 K/mm3 (0.84-5.20); LYMPHOCYTES PERCENT AUTO 16 % (21-46); MONOCYTES ABSOLUTE AUTO 2.12 K/mm3 (0.16-1.47); MONOCYTES PERCENT AUTO 17 % (4-13); Mean Corpuscular HGB 34.4 pg (26.0-34.0); Mean Corpuscular HGB Conc 35.1 g/dL (31.5-36.5); Mean Corpuscular Volume 98 fL (80-100); Mean Platelet Volume 10.9 fL (9.1-12.4); NEUTROPHILS ABSOLUTE AUTO 8.11 K/mm3 (1.96-9.15); NEUTROPHILS PERCENT AUTO 63 % (41-73); Platelet Count 248 K/mm3 (150-400); RDW Coefficient Variation 19.6 % (11.7-14.2); RDW Standard Deviation 69.3 fL (35.1-46.3); Red Blood Cell Count 2.88 M/mm3 (3.80-5.20)
[2023-06-25 08:23] LABS: Albumin, Blood 2.3 g/dL (3.4-5.0); Bilirubin, Total 24.8 mg/dL (0.1-1.0); Bun/Creatinine Ratio 17.6 (12.0-20.0); Calcium, Blood 8.4 mg/dL (8.5-10.1); Creatinine, Blood 1.19 mg/dL (0.40-1.00); Globulin, Blood 2.3 g/dL (2.2-4.0); Potassium, Blood 3.2 mmol/L (3.5-5.5); Total Protein, Blood 4.6 g/dL (6.4-8.2)
--- NOTE | 2023-06-25 08:40 | NUR ---
pt turned on her side in bed and tearful, is thankful for care, requested ativan, as spoke to her this am, and is upset. took her lactulose, is refusing busbar, a/ox4, pleasant and cooperative with care, follows commands well, denies pain at this time, lungs are clear t/o, resp even and unlabored, no cough noted, hrr, bounding, 3+ pedal edema noted to b/l feet, up to knees, ppp+2, cap refill <3sec, vs stable, afebrile, iv is power glide to jennifer, site is clear and patent, btx4 hypoactive, voids without diff, was reported her urine is tea colored, skin jaundiced, c/w/d, states cyn area rash that she is putting her powder on, vazquez sandoval, call light in reach.
[2023-06-25 15:13] VITALS: BP 113/57
[2023-06-25 19:38] VITALS: BP 114/60
[2023-06-26 01:47] VITALS: BP 111/62
[2023-06-26 05:04] LABS: BASOPHILS ABSOLUTE AUTO 0.11 K/mm3 (0.00-0.23); BASOPHILS PERCENT AUTO 1 % (0-2); EOSINOPHILS ABSOLUTE AUTO 0.35 K/mm3 (0.00-0.68); EOSINOPHILS PERCENT AUTO 3 % (0-6); Hematocrit 28.6 % (33.0-51.0); Hemoglobin 10.1 g/dL (11.5-16.0); IMMATURE GRAN ABSOLUTE AUTO 0.23 K/mm3 (0.00-0.10); IMMATURE GRAN PERCENT AUTO 2 % (0-1); LYMPHOCYTES ABSOLUTE AUTO 3.06 K/mm3 (0.84-5.20); LYMPHOCYTES PERCENT AUTO 22 % (21-46); MONOCYTES ABSOLUTE AUTO 2.31 K/mm3 (0.16-1.47); MONOCYTES PERCENT AUTO 17 % (4-13); Mean Corpuscular HGB 34.1 pg (26.0-34.0); Mean Corpuscular HGB Conc 35.3 g/dL (31.5-36.5); Mean Corpuscular Volume 97 fL (80-100); Mean Platelet Volume 10.9 fL (9.1-12.4); NEUTROPHILS ABSOLUTE AUTO 7.69 K/mm3 (1.96-9.15); NEUTROPHILS PERCENT AUTO 56 % (41-73); Platelet Count 256 K/mm3 (150-400); RDW Coefficient Variation 19.3 % (11.7-14.2); RDW Standard Deviation 67.9 fL (35.1-46.3); Red Blood Cell Count 2.96 M/mm3 (3.80-5.20); White Blood Cell Count 13.75 K/mm3 (4.00-11.30)
--- NOTE | 2023-06-26 06:10 | NUR ---
END OF SHIFT SUMMARY PT LETHARGIC THE ENTIRE SHIFT. PT A&O x3-4. VSS, AFEBRILE. PT HAD MULTIPLE EPISODES OF INCONTINENCE, NOT ABLE TO MAKE IT TO THE BSC IN TIME. A PUREWICK WAS PLACED SO THAT PT COULD GET SOME REST. PT REQUESTED PRN ZQUIL, AND ATIVAN AT 2030. PT C/O [place] AND NAUSEA, PRN IV ZOFRAN AND PO IBUPROFEN ADMINISTERED. PRN MEDICATION EFFECTIVE, PT APPEARED TO BE PEACEFULLY SLEEPING IN BED. +3 BILAT PITTING EDEMA PRESENT TO R AND L LOWER EXTREMITIES. LUNG SOUNDS CTA, RESP RATE EVEN AND UNLABORED. PT CONTINUES TO REFUSE BUSPAR. PT's ABD DISTENDED, BOWEL TONES PRESENT, PT DENIED TENDERNESS. CALL LIGHT WITHIN REACH, WCTM.
[2023-06-26 06:42] LABS: Albumin, Blood 2.1 g/dL (3.4-5.0); Albumin/Globulin Ratio 0.8 (0.8-1.8); Bilirubin, Total 25.3 mg/dL (0.1-1.0); Calcium, Blood 8.4 mg/dL (8.5-10.1); Creatinine, Blood 1.11 mg/dL (0.40-1.00); Globulin, Blood 2.6 g/dL (2.2-4.0); Potassium, Blood 3.3 mmol/L (3.5-5.5); Total Protein, Blood 4.7 g/dL (6.4-8.2)
[2023-06-26 07:35] VITALS: BP 126/73
[2023-06-26 08:57] LABS: U Amphetamine Screen Not Detected; U Barbituate Screen Not Detected; U Benzodiazapine Screen Not Detected; U Buprenorphine Screen Not Detected; U Cannabinoids Screen Not Detected; U Cocaine Screen Not Detected; U Methadone Screen Not Detected; U Methamphetamine Screen Not Detected; U Opiates Screen Not Detected; U Oxycodone Screen Not Detected; U Phencyclidine Screen Not Detected; U Propoxyphene Screen Not Detected
[2023-06-26 14:46] VITALS: BP 114/60
--- NOTE | 2023-06-26 17:54 | NUR ---
SHIFT SUMMARY 1430 ASSUMED CARE OF PT. PT ADMITTED FOR HEPATITIS/LIVER FAILURE. PT RECEIVING LACTULOSE. PARACENTESIS ATTEMPTED, BUT UNSUCCESSFUL. NO FLUID REMOVED. 3+ EDEMA TO LE'S. BIOPSY DONE TO R JUGULAR. PT HAS BEEN SLEEPING SINCE ASSUMING CARE. [facility] RN, GONZALO, REPORTED NO VISITORS FOR PT, PER DR SINGH. NOTE PLACED ON PT'S DOOR. PT'S MOM LATER HERE TO BRING PT'S WASHED CLOTHING; ROBE. BUT DID NOT STAY OR WAKE PT. LATER PT'S SISTER HERE WITH HAIR PRODUCTS, BUT INFORMED OF NO VISITOR RULE. FAMILY CO-OP TO PRESENT. PER REPORT, PT UP TO SHOWER EARLIER TODAY. CONTINUES TO REST QUIETLY. CALL LT IN REACH.
[2023-06-26 20:03] VITALS: BP 117/76
--- NOTE | 2023-06-27 03:24 | NUR ---
END OF SHIFT SUMMARY PT MUCH MORE ALERT THIS SHIFT, NOT LETHARGIC. PT A&O x4, VSS, AFEBRILE. PT CONTINUES TO HAVE A NO VISITOR POLICY SET IN PLACE FOR NOW. PT CONTINENT TONIGHT, ABLE TO MAKE IT IN TIME TO THE BSC. I'S AND O'S MONITORED, URINE [place] IN COLOR. PT C/O NAUSEA, PRN IV ZOFRAN GIVEN AND EFFECTIVE. PT REFUSED HER BUSPAR. PT EDUCATION PROVIDED THAT BUSPAR CAN HELP WITH ANXIETY, SINCE ATIVAN HAS BEEN DISCONTINUED. PT DENIED ANXIETY, YET BECAME UPSET ABOUT REASONS WHY NO VISITOR RULE IS IN PLACE. PT HAD 2 BOWEL MOVEMENTS YESTERDAY. ABD DISTENDED, AND SLIGHTLY TENDER TO LUQ AND LLQ. +3 BILAT PITTING EDEMA PRESENT. ELEVATED BILIRUBIN; LAST LAB RESULTS FOR TOTAL BILIRUBIN WAS 25.3, JAUNDICE TO SKIN AND EYES. PT STATED THAT SHE MIGHT CONSIDER GOING ELSEWHERE FOR CARE, SHE DISAGREES WITH THE DOCTOR'S NO VISITOR RULE. CALL LIGHT WITHIN REACH, WCTM. REPORT WAS GIVEN TO CHON ECHEVARRIA, FOR THE REMAINDER OF THIS SHIFT.
[2023-06-27 03:34] VITALS: BP 133/77
--- NOTE | 2023-06-27 04:01 | NUR ---
PROCED TECH SUMMARY VSS. HAS BEEN RESTING QUIETLY WITH FEW INTERRUPOIINS. REMAINS ON BEDREST. CONTINUE TO HAVE NO VISITORS FOR PT SAFETY AND TO PREVENT POSSIBLE RECEIVING ITEMS/ETC NOT GOOD FOR HER HEALTH. CURRENTLY RESTING QUIETLY WITHOUT NOTED S/S ACUTE DISTRESS. CALL LIGHT IN REACH. WILL CONTINUE TO MONITOR
[2023-06-27 05:19] LABS: BASOPHILS ABSOLUTE AUTO 0.11 K/mm3 (0.00-0.23); BASOPHILS PERCENT AUTO 1 % (0-2); EOSINOPHILS ABSOLUTE AUTO 0.39 K/mm3 (0.00-0.68); EOSINOPHILS PERCENT AUTO 3 % (0-6); Hemoglobin 10.3 g/dL (11.5-16.0); IMMATURE GRAN ABSOLUTE AUTO 0.18 K/mm3 (0.00-0.10); IMMATURE GRAN PERCENT AUTO 1 % (0-1); LYMPHOCYTES ABSOLUTE AUTO 2.99 K/mm3 (0.84-5.20); LYMPHOCYTES PERCENT AUTO 22 % (21-46); MONOCYTES ABSOLUTE AUTO 2.47 K/mm3 (0.16-1.47); MONOCYTES PERCENT AUTO 18 % (4-13); Mean Corpuscular HGB 34.1 pg (26.0-34.0); Mean Corpuscular HGB Conc 35.5 g/dL (31.5-36.5); Mean Corpuscular Volume 96 fL (80-100); Mean Platelet Volume 11.1 fL (9.1-12.4); NEUTROPHILS ABSOLUTE AUTO 7.77 K/mm3 (1.96-9.15); NEUTROPHILS PERCENT AUTO 56 % (41-73); Platelet Count 260 K/mm3 (150-400); RDW Coefficient Variation 19.2 % (11.7-14.2); RDW Standard Deviation 66.7 fL (35.1-46.3); Red Blood Cell Count 3.02 M/mm3 (3.80-5.20); White Blood Cell Count 13.91 K/mm3 (4.00-11.30)
[2023-06-27 06:02] LABS: Albumin, Blood 2.3 g/dL (3.4-5.0); Albumin/Globulin Ratio 0.9 (0.8-1.8); Bilirubin, Total 24.2 mg/dL (0.1-1.0); Bun/Creatinine Ratio 16.7 (12.0-20.0); Calcium, Blood 8.7 mg/dL (8.5-10.1); Creatinine, Blood 1.08 mg/dL (0.40-1.00); Globulin, Blood 2.5 g/dL (2.2-4.0); Potassium, Blood 3.7 mmol/L (3.5-5.5); Total Protein, Blood 4.8 g/dL (6.4-8.2)
[2023-06-27 07:40] VITALS: BP 117/71
[2023-06-27 15:57] VITALS: BP 121/77
--- NOTE | 2023-06-27 16:06 | NUR ---
THE PATIENT IS A&O X3, BUT VERY EMOTIONAL, DOCTOR SAMANTHA IS ALLOWING THE PATIENT TO HAVE HER FAMILY VISIT HER AND THAT HAS HELPED THE PATIENT COMPLAINED OF 7/10 AND RECEIVED HER ORDERED PAIN MEDICATION. THE PATIENT IS SLEEPIN AT THIS TIME REPORT WAS GIVEN TO CHON BRENNAN.
--- NOTE | 2023-06-27 18:49 | NUR ---
RN NOTE MS LANGLEY HAS BEEN RESTING SINCE GETTING REPORT FROM VIANCA GIVENS. MOTHER AT BEDSIDE. PT AWAKES TO VOICE. BED LOW, CALL LIGHT IN REACH.
[2023-06-27 19:28] VITALS: BP 120/67
[2023-06-28 04:11] VITALS: BP 128/68
[2023-06-28 04:32] LABS: BASOPHILS ABSOLUTE AUTO 0.13 K/mm3 (0.00-0.23); BASOPHILS PERCENT AUTO 1 % (0-2); EOSINOPHILS ABSOLUTE AUTO 0.37 K/mm3 (0.00-0.68); EOSINOPHILS PERCENT AUTO 2 % (0-6); Hematocrit 29.4 % (33.0-51.0); Hemoglobin 10.5 g/dL (11.5-16.0); IMMATURE GRAN ABSOLUTE AUTO 0.21 K/mm3 (0.00-0.10); IMMATURE GRAN PERCENT AUTO 1 % (0-1); LYMPHOCYTES ABSOLUTE AUTO 2.55 K/mm3 (0.84-5.20); LYMPHOCYTES PERCENT AUTO 16 % (21-46); MONOCYTES ABSOLUTE AUTO 2.85 K/mm3 (0.16-1.47); MONOCYTES PERCENT AUTO 18 % (4-13); Mean Corpuscular HGB 34.4 pg (26.0-34.0); Mean Corpuscular HGB Conc 35.7 g/dL (31.5-36.5); Mean Corpuscular Volume 96 fL (80-100); Mean Platelet Volume 10.7 fL (9.1-12.4); NEUTROPHILS ABSOLUTE AUTO 9.58 K/mm3 (1.96-9.15); NEUTROPHILS PERCENT AUTO 61 % (41-73); Platelet Count 274 K/mm3 (150-400); RDW Coefficient Variation 19.2 % (11.7-14.2); RDW Standard Deviation 67.5 fL (35.1-46.3); Red Blood Cell Count 3.05 M/mm3 (3.80-5.20); White Blood Cell Count 15.69 K/mm3 (4.00-11.30)
--- NOTE | 2023-06-28 04:44 | NUR ---
END OF SHIFT SUMMARY PT SLEPT WELL FOR MAJORITY OF NIGHT AFTER TAKING 2100 MEDICATION. PT A&O x3, VSS, AFEBRILE. PT C/O N/V, PRN REGLAN GIVEN AND EFFECTIVE. SMALL AMOUNT OF EMESIS WAS NOTED, MOSTLY LIQUID AND POOL IN COLOR. PT CALLS APPROPRIATELY, ABLE TO MAKE NEEDS KNOWN. CALL LIGHT WITHIN REACH, WCTM.
[2023-06-28 05:17] LABS: Albumin, Blood 2.2 g/dL (3.4-5.0); Albumin/Globulin Ratio 0.8 (0.8-1.8); Bilirubin, Total 23.4 mg/dL (0.1-1.0); Bun/Creatinine Ratio 16.8 (12.0-20.0); Calcium, Blood 8.9 mg/dL (8.5-10.1); Creatinine, Blood 1.19 mg/dL (0.40-1.00); Globulin, Blood 2.7 g/dL (2.2-4.0); Potassium, Blood 3.6 mmol/L (3.5-5.5); Total Protein, Blood 4.9 g/dL (6.4-8.2)
[2023-06-28 07:50] VITALS: BP 131/79
[2023-06-28 17:04] VITALS: BP 125/73
--- NOTE | 2023-06-28 18:45 | NUR ---
SHIFT SUMMARY PT A&OX4 AND PLEASANT. PT NAUSEOUS THIS AM AND VOMMITED ONCE AT START OF SHIFT. MEDICATED PER EMAR WITH GOOD EFFECT. PT WAS ABLE TO SLEEP FOR SEVERAL HOURS AFTERWARD. ECHO PERFORMED TODAY. NO ACUTE CHANGES. VSS. PT REPORTS 4 BM'S TODAY. MOM AT BEDSIDE IN AFTERNOON. BED IN LOWEST POSITION AND CALL LIGHT IN REACH.
[2023-06-28 19:58] VITALS: BP 132/81
[2023-06-29 03:47] VITALS: BP 125/75
--- NOTE | 2023-06-29 05:11 | NUR ---
SHIFT SUMMARU 57 YR F ADMITTED ON 06/11/23 FOR ACUTE HEPATITIS. FULL CODE. PT C/O BELLY PAIN AND NAUSEA AND GIVEN PAIN MEDS AND ANTIEMETICS TWICE THIS SHIFT. SHE SLEEPS ON HER STOMACH SO IT WAS HARD FOR THIS NURSE TO VISUALIZE THE SIZE OF THE PT'S BELLY, BUT PT IS C/O PAIN AND MEDICATED PER EMAR. PT IS VERY SOFT SPOKEN AND HARD TO UNDERSTAND. SHE HAD A VISITOR ARRIVE EARLY THIS A.M. WHO IS BELIEVED TO BE A FAMILY MEMBER.
[2023-06-29 05:13] LABS: BASOPHILS ABSOLUTE AUTO 0.12 K/mm3 (0.00-0.23); BASOPHILS PERCENT AUTO 1 % (0-2); EOSINOPHILS ABSOLUTE AUTO 0.15 K/mm3 (0.00-0.68); EOSINOPHILS PERCENT AUTO 1 % (0-6); Hematocrit 30.9 % (33.0-51.0); IMMATURE GRAN ABSOLUTE AUTO 0.21 K/mm3 (0.00-0.10); IMMATURE GRAN PERCENT AUTO 1 % (0-1); LYMPHOCYTES PERCENT AUTO 11 % (21-46); MONOCYTES ABSOLUTE AUTO 3.11 K/mm3 (0.16-1.47); MONOCYTES PERCENT AUTO 16 % (4-13); Mean Corpuscular HGB 34.4 pg (26.0-34.0); Mean Corpuscular HGB Conc 35.6 g/dL (31.5-36.5); Mean Corpuscular Volume 97 fL (80-100); Mean Platelet Volume 10.7 fL (9.1-12.4); NEUTROPHILS ABSOLUTE AUTO 13.94 K/mm3 (1.96-9.15); NEUTROPHILS PERCENT AUTO 71 % (41-73); Platelet Count 290 K/mm3 (150-400); RDW Coefficient Variation 19.3 % (11.7-14.2); RDW Standard Deviation 67.2 fL (35.1-46.3); White Blood Cell Count 19.73 K/mm3 (4.00-11.30)
[2023-06-29 05:58] LABS: Albumin, Blood 2.2 g/dL (3.4-5.0); Albumin/Globulin Ratio 0.8 (0.8-1.8); Bilirubin, Total 24.6 mg/dL (0.1-1.0); Bun/Creatinine Ratio 16.8 (12.0-20.0); Creatinine, Blood 1.31 mg/dL (0.40-1.00); Globulin, Blood 2.8 g/dL (2.2-4.0); Potassium, Blood 3.5 mmol/L (3.5-5.5)
[2023-06-29 08:45] VITALS: BP 130/76
[2023-06-29 15:32] VITALS: BP 124/77
[2023-06-29 19:26] VITALS: BP 122/68
--- NOTE | 2023-06-29 19:59 | NUR ---
SHIFT SUMMARY PT A&Ox4. NO ACUTE CHANGES. PT C/O ABD PAIN AND NAUSEA. MEDICATED PER EMAR. PUREWICK PLACED PER DR ORDER. PT HAD 2V CHEST X-RAY TODAY. REPORT GIVEN TO GLOVE TURNER NURSE. BED IN LOWEST POSITION AND CALL LIGHT IN REACH.
[2023-06-30 02:31] VITALS: BP 114/59
--- NOTE | 2023-06-30 04:46 | NUR ---
SHIFT SUMMARY 57 YR F ADMITTED ON 06/11/23 FOR ACUTE HEPATITIS. FULL CODE. NO ACUTE CHANGES THIS SHIFT. PT APPEARS TO HAVE SLEPT COMFORTABLY FOR MOST OF THIS SHIFT. SHE C/O ABDOMINAL PAIN EARLY ON IN THE SHIFT BUT NOT AGAIN UNTIL TOWARDS THE END OF SHIFT. SHE HAS A PUREWIK THAT IS WORKING WELL FOR THE MOST PART, BUT AT ONE POINT SHE PULLED IT BECAUSE SHE THOUGHT IT WAS CLOGGED. RELAY TESTER EDUCATED PT ON PURPOSE AND USE OF THE PUREWIK AND A NEW ONE WAS PLACED. PT IS PLEASANT AND COOPERATIVE WITH CARE BUT SLEEPS MOST OF THE TIME.
[2023-06-30 05:07] LABS: BASOPHILS ABSOLUTE AUTO 0.15 K/mm3 (0.00-0.23); BASOPHILS PERCENT AUTO 1 % (0-2); EOSINOPHILS ABSOLUTE AUTO 0.36 K/mm3 (0.00-0.68); EOSINOPHILS PERCENT AUTO 2 % (0-6); Hematocrit 27.8 % (33.0-51.0); IMMATURE GRAN ABSOLUTE AUTO 0.21 K/mm3 (0.00-0.10); IMMATURE GRAN PERCENT AUTO 1 % (0-1); LYMPHOCYTES ABSOLUTE AUTO 2.86 K/mm3 (0.84-5.20); LYMPHOCYTES PERCENT AUTO 18 % (21-46); MONOCYTES ABSOLUTE AUTO 2.86 K/mm3 (0.16-1.47); MONOCYTES PERCENT AUTO 18 % (4-13); Mean Corpuscular HGB 34.2 pg (26.0-34.0); Mean Corpuscular Volume 95 fL (80-100); Mean Platelet Volume 10.4 fL (9.1-12.4); NEUTROPHILS ABSOLUTE AUTO 9.46 K/mm3 (1.96-9.15); NEUTROPHILS PERCENT AUTO 60 % (41-73); Platelet Count 277 K/mm3 (150-400); RDW Coefficient Variation 18.6 % (11.7-14.2); RDW Standard Deviation 64.6 fL (35.1-46.3); Red Blood Cell Count 2.92 M/mm3 (3.80-5.20)
[2023-06-30 05:52] LABS: Albumin/Globulin Ratio 0.6 (0.8-1.8); Bun/Creatinine Ratio 17.9 (12.0-20.0); Calcium, Blood 8.2 mg/dL (8.5-10.1); Creatinine, Blood 1.45 mg/dL (0.40-1.00); Globulin, Blood 3.6 g/dL (2.2-4.0); Potassium, Blood 2.9 mmol/L (3.5-5.5); Total Protein, Blood 5.6 g/dL (6.4-8.2)
[2023-06-30 07:43] VITALS: BP 118/68
[2023-06-30 15:49] VITALS: BP 129/76
[2023-06-30 16:39] LABS: Bun/Creatinine Ratio 18.5 (12.0-20.0); Calcium, Blood 8.7 mg/dL (8.5-10.1); Creatinine, Blood 1.35 mg/dL (0.40-1.00); Potassium, Blood 3.6 mmol/L (3.5-5.5)
--- NOTE | 2023-06-30 17:37 | NUR ---
SHIFT SUMMARY PATIENT MEDICATED FOR PAIN X2, PATIENT DENIES NAUSEA AND SHORTNESS OF BREATH. PATIENT IS A&O X4. PATIENT IS A SBA TO THE BATHROOM. PATIENT RECIEVED SHOWER TODAY. PATIENT IS ON STRICT I&O'S. PATIENT IS EATING AND DRINKING WELL. PATIENT SLEPT ON AND OFF THIS SHIFT. PATENT POTASSIUM THIS AM WAS 2.9, ORAL AND IV REPLACEMENTS GIVEN. REDRAW AT 1600 WAS 3.6. DRESSING CHANGED TO POWERGLIDE IN ADOLFO, DOES NOT DRAW. PATIENT USES CALL LIGHT APPROPRIATELY. PATIENT IS PLEASANT AND COOPERATIVE WITH CARE.
[2023-06-30 19:38] VITALS: BP 135/76
[2023-07-01 02:59] VITALS: BP 127/69
[2023-07-01 04:41] LABS: BASOPHILS ABSOLUTE AUTO 0.23 K/mm3 (0.00-0.23); BASOPHILS PERCENT AUTO 1 % (0-2); EOSINOPHILS ABSOLUTE AUTO 0.47 K/mm3 (0.00-0.68); EOSINOPHILS PERCENT AUTO 3 % (0-6); Hematocrit 29.2 % (33.0-51.0); Hemoglobin 10.8 g/dL (11.5-16.0); IMMATURE GRAN ABSOLUTE AUTO 0.31 K/mm3 (0.00-0.10); IMMATURE GRAN PERCENT AUTO 2 % (0-1); LYMPHOCYTES ABSOLUTE AUTO 3.55 K/mm3 (0.84-5.20); LYMPHOCYTES PERCENT AUTO 21 % (21-46); MONOCYTES ABSOLUTE AUTO 2.83 K/mm3 (0.16-1.47); MONOCYTES PERCENT AUTO 17 % (4-13); Mean Corpuscular HGB 34.7 pg (26.0-34.0); Mean Corpuscular Volume 94 fL (80-100); Mean Platelet Volume 10.3 fL (9.1-12.4); NEUTROPHILS PERCENT AUTO 56 % (41-73); Platelet Count 296 K/mm3 (150-400); RDW Coefficient Variation 18.5 % (11.7-14.2); RDW Standard Deviation 62.4 fL (35.1-46.3); Red Blood Cell Count 3.11 M/mm3 (3.80-5.20); White Blood Cell Count 16.69 K/mm3 (4.00-11.30)
[2023-07-01 05:21] LABS: Albumin, Blood 2.3 g/dL (3.4-5.0); Albumin/Globulin Ratio 0.8 (0.8-1.8); Bilirubin, Total 24.1 mg/dL (0.1-1.0); Bun/Creatinine Ratio 17.8 (12.0-20.0); Calcium, Blood 9.1 mg/dL (8.5-10.1); Creatinine, Blood 1.29 mg/dL (0.40-1.00); Globulin, Blood 2.8 g/dL (2.2-4.0); Potassium, Blood 3.4 mmol/L (3.5-5.5); Total Protein, Blood 5.1 g/dL (6.4-8.2)
--- NOTE | 2023-07-01 07:42 | NUR ---
SHIFT SUMMARY PATIENT A/OX4. STAND-BY ASSIST TO BATHROOM. STRICT I&O'S, PUREWICK IN PLACE. PRN FENTANYL 50 MCG GIVEN X3. PRN ZOFRAN GIVEN X2. SMALL BM OVERNIGHT. SLEPT MAJORITY OF NIGHT.
[2023-07-01 07:51] VITALS: BP 126/76
--- NOTE | 2023-07-01 14:50 | NUR ---
Spiritual care visit conducted. Patient is lying in bed and becomes tearful when I walk inthe room. She tells me that she was progressing very well and then she has had some set backs and feels weak and back to how she felt when she arrived. She tells me that she would love for me to pray for her, which I gladly do. She sobs during the prayer but at the conclusion remarks that it was so meaningful and that she does she uplifted and more hopeful. I allow her to go back to resting but will remain available to patient and family.
[2023-07-01 16:19] VITALS: BP 124/62
--- NOTE | 2023-07-01 17:20 | NUR ---
SHIFT SUMNARY; NO ACUTE CHANGES IN CONDITION NOTED TODAY. PATIENT IS VERY PAINFULL LATE THIS AFTERNOON AND REQUESTS FENTANYL FOR PAIN IV. SHE HAS PLEASANT AFFECT LATER AND IS NOTED TO ASK FOR MAKINGS OF A ROOT BEER FLOAT. YESI TOOK A SHOWER TODAY AND HER MOM REMAINS AT BEDSIDE MOST OF DAY.
[2023-07-01 21:00] VITALS: BP 112/55
[2023-07-02 02:17] VITALS: BP 115/67
--- NOTE | 2023-07-02 03:50 | NUR ---
SHIFT SUMMARY. SHIFT HAS BEEN MOSTLY UNREMARKABLE. PT AOX4, PLEASANT, COOPERATIVE WITH CARE THUS FAR. PAIN HAS BEEN WELL MANAGED VIA PRN FENTANYL, ONLY ADMINISTERED TWICE THIS SHIFT THUS FAR. PT HAS BEEN SLEEPING FOR MOST OF SHIFT THUS FAR. USES CALL LIGHT APPROPRIATELY. ABLE TO MAKE NEEDS KNOWN. HAS BEEN SATTING WELL ON ROOM AIR. BED LOCKED IN LOWEST POSITION. CALL LIGHT LEFT WITHIN REACH.
[2023-07-02 07:29] VITALS: BP 121/63
--- NOTE | 2023-07-02 15:28 | NUR ---
SHIFT SUMMARY; PATIENT HAS PLEASANT AFFECT TODAY AND APPEARS EXCITED TO POSSIBLEY GOING HOME ON wednesday. SHE TAKES SHOWER THIS AM WITH MINIMAL ASSIST. DOES COMPLAIN OF INCREASED PAIN AND PRESSURE FROM HER ABDOMEN HER STOMACH APPEARS MORE SWOLLEN TODAY. INCREASED EDEMA TO BILATERAL LEGS. PATIENT ENCOURAGED TO AMBULATE IN LU. MAKES MEDICATION CHANGES TO PATIENT EMAR. DC FENTANYL AND ADDS PERCOCET 5/325 Q4 HOURS PAIN.
[2023-07-02 15:55] VITALS: BP 134/65
[2023-07-02 20:06] VITALS: BP 150/73
[2023-07-02 23:44] VITALS: BP 112/57
[2023-07-03 05:13] VITALS: BP 126/73
--- NOTE | 2023-07-03 06:13 | NUR ---
NOC SHIFT SUMMARY: PT VERY UPSET LAST NIGHT. PT. FELT PRESSURE ON HER ABDOMEN. VITAL SIGNS WERE STABLE. PERCOCET NOW FOR PAIN CONTROL. POSSIBLE DISCHARGE TO HOME ON WEDNESDAY. INDEPENDENT IN ROOM. FEELS MUCH BETTER THIS AM.
[2023-07-03 07:41] VITALS: BP 124/70
[2023-07-03 10:38] LABS: Source, Urine Clean Catch
[2023-07-03 10:41] LABS: Appearance, Urine Clear (Clear); Blood, Urine 2+ (Neg); Glucose Qualitative, Urine Neg (Neg); Ketones, Urine Neg (Neg); Leukocyte Esterase, Urine 1+ (Neg); Nitrite, Urine Neg (Neg); Protein, Urine 2+ (Neg); Urobilinogen, Urine 3+ (Normal)
[2023-07-03 11:08] LABS: Bilirubin, Urine 3+ (Neg); Color, Urine Orange (P-Yellow)
[2023-07-03 11:13] LABS: Bacteria Many /hpf; Transitional Epithelial Cells Mod /hpf (0-Rare)
[2023-07-03 11:14] LABS: Mucus Light (0-Heavy); Squamous Epithelial Cells Mod /hpf (Few)
[2023-07-03 11:17] LABS: BASOPHILS ABSOLUTE AUTO 0.26 K/mm3 (0.00-0.23); BASOPHILS PERCENT AUTO 1 % (0-2); EOSINOPHILS ABSOLUTE AUTO 0.38 K/mm3 (0.00-0.68); EOSINOPHILS PERCENT AUTO 2 % (0-6); Hematocrit 31.5 % (33.0-51.0); Hemoglobin 11.3 g/dL (11.5-16.0); IMMATURE GRAN PERCENT AUTO 2 % (0-1); LYMPHOCYTES ABSOLUTE AUTO 3.41 K/mm3 (0.84-5.20); LYMPHOCYTES PERCENT AUTO 16 % (21-46); MONOCYTES ABSOLUTE AUTO 2.87 K/mm3 (0.16-1.47); MONOCYTES PERCENT AUTO 13 % (4-13); Mean Corpuscular HGB 34.5 pg (26.0-34.0); Mean Corpuscular HGB Conc 35.9 g/dL (31.5-36.5); Mean Corpuscular Volume 96 fL (80-100); Mean Platelet Volume 10.3 fL (9.1-12.4); NEUTROPHILS ABSOLUTE AUTO 14.63 K/mm3 (1.96-9.15); NEUTROPHILS PERCENT AUTO 66 % (41-73); Platelet Count 326 K/mm3 (150-400); RDW Coefficient Variation 17.8 % (11.7-14.2); Red Blood Cell Count 3.28 M/mm3 (3.80-5.20); White Blood Cell Count 22.05 K/mm3 (4.00-11.30)
[2023-07-03 11:18] LABS: Hyaline Casts 0-2 /lpf (0-2)
[2023-07-03 11:20] LABS: Red Blood Cells, Urine 0-2 /hpf (0-2); Renal Epithelial Rare /hpf (0-Rare)
[2023-07-03 11:57] LABS: Albumin, Blood 2.4 g/dL (3.4-5.0); Albumin/Globulin Ratio 0.8 (0.8-1.8); Bilirubin, Total 25.7 mg/dL (0.1-1.0); Bun/Creatinine Ratio 15.2 (12.0-20.0); Calcium, Blood 9.3 mg/dL (8.5-10.1); Creatinine, Blood 1.25 mg/dL (0.40-1.00); Globulin, Blood 2.9 g/dL (2.2-4.0); Potassium, Blood 3.3 mmol/L (3.5-5.5); Total Protein, Blood 5.3 g/dL (6.4-8.2)
--- NOTE | 2023-07-03 16:15 | NUR ---
SHIFT SUMMARY PT AWAKE DURING SHIFT REPORT THIS AM. SITTING UP TO EOB WATCHING TV. UP TO BTHRM INDEPENDENTLY, MOVING SLOWLY. C/O SWELLING THIS AM AND REQUESTING LASIX. DR BENJAMIN IN TO SEE PT AND LATER DR AVILA. NEW ORDERS PLACED. MEDS GIVEN PER EMAR. PT REMAINS VERY JAUNDICED. MEDICATIONS ADJUSTED FURTHER FOR LIVER. REQUESTING PAIN MEDICATION FOR ABD SWELLING; MEDICATED PER EMAR. PT UP TO SHOWER THIS AFTERNOON. SISTER IN TO VISIT THIS AM AND MOTHER BACK IN THIS AFTERNOON. PT'S MOTHER DOES CAUSE AGITATION IN PT. PT UP TO EOB AGAIN AT THIS TIME. WAS RESTING IN BED WITH LE'S ELEVATED AND SCD'S ON. DENIES FURTHER NEEDS AT THIS TIME. CALL LT IN REACH.
[2023-07-03 16:24] VITALS: BP 132/67
[2023-07-03 19:24] VITALS: BP 143/78
[2023-07-04 04:04] VITALS: BP 128/77
[2023-07-04 07:04] VITALS: BP 130/71
[2023-07-04 12:28] LABS: U Barbituate Screen Not Detected; U Benzodiazapine Screen Not Detected; U Buprenorphine Screen Not Detected; U Cannabinoids Screen Not Detected; U Cocaine Screen Not Detected; U Methadone Screen Not Detected; U Methamphetamine Screen Not Detected; U Opiates Screen Not Detected; U Oxycodone Screen DETECTED; U Phencyclidine Screen Not Detected; U Propoxyphene Screen Not Detected
[2023-07-04 13:08] LABS: U Amphetamine Screen Not Detected
[2023-07-04 15:42] VITALS: BP 129/81
[2023-07-04 19:30] VITALS: BP 134/75
--- NOTE | 2023-07-04 20:01 | NUR ---
SHIFT SUMMARY PT AWAKE AT START OF SHIFT. PT'S MOM IN EARLY TO VISIT AND STAYING MOST OF THE DAY. OTHER VISITORS HERE WELL. PT INDEPENDENT IN RM AND UP TO BTHRM. PT LATER AMBULATED IN HALLS USING FWW, AND THEN OUT TO LOBBY TO SIT FOR A WHILE. PT'S RM CLEANED AND MOPPED AGAIN BY HOUSEKEEPING. PT IS VERY MESSY ALL THE TIME. RM CLEANED BY STAFF SEVERAL TIMES A DAY. SHOAIB HOSE ON FOR HALF OF SHIFT AND THEN PT REMOVED FOR A WHILE. SLIGHT DECREASE IN LE SWELLING SINCE YESTERDAY AM; LASIX, SHOAIB HOSE, AND ELEVATION HELPED SOME. PT MEDICATED FOR C/O ABD PAIN PER EMAR. 2ND DOSE OF IV ROCEPHIN GIVEN PER EMAR. DR CHAVEZ AND DR AVILA BOTH IN TO SEE PT TODAY. NEW ORDERS PLACED. POSSIBLE D/C TO HOME TOMORROW. REPORT GIVEN TO ONCOMING RN. CALL LT IN REACH.
[2023-07-05 03:02] VITALS: BP 133/69
[2023-07-05 05:03] LABS: Hematocrit 27.3 % (33.0-51.0); Hemoglobin 9.6 g/dL (11.5-16.0); Mean Corpuscular HGB 33.2 pg (26.0-34.0); Mean Corpuscular HGB Conc 35.2 g/dL (31.5-36.5); Mean Corpuscular Volume 95 fL (80-100); Mean Platelet Volume 10.4 fL (9.1-12.4); Platelet Count 285 K/mm3 (150-400); RDW Coefficient Variation 16.8 % (11.7-14.2); RDW Standard Deviation 58.3 fL (35.1-46.3); Red Blood Cell Count 2.89 M/mm3 (3.80-5.20); White Blood Cell Count 15.71 K/mm3 (4.00-11.30)
--- NOTE | 2023-07-05 05:04 | NUR ---
SHIFT SUMMARY PRN PAIN MEDICATION GIVEN X2 WITH POSITIVE EFFECT.
[2023-07-05 05:38] LABS: Albumin, Blood 2.1 g/dL (3.4-5.0); Albumin/Globulin Ratio 0.8 (0.8-1.8); Bun/Creatinine Ratio 13.2 (12.0-20.0); Calcium, Blood 8.6 mg/dL (8.5-10.1); Creatinine, Blood 1.29 mg/dL (0.40-1.00); Globulin, Blood 2.7 g/dL (2.2-4.0); Total Protein, Blood 4.8 g/dL (6.4-8.2)
[2023-07-05 05:40] LABS: Potassium, Blood 2.3 mmol/L (3.5-5.5)
[2023-07-05 07:02] VITALS: BP 125/70
--- NOTE | 2023-07-05 13:54 | NUR ---
Patient is in tears when I enter the room. SHe states that she overwhelmed by how hard it is to get the equipment that she needs at home to have a successful d/c to home. She talks about the cahllenges she is having to get all the different agencies to talk and work together. She is tearful as she explains about the small amount of energy and strength that she has having to be used to contend for the supplies that she needs. We also discuss her deysi and her desire to keep growing in her Sikh deysi and her ability to love those who not working on her behalf and at times feel as they are working to hinder her healing and success. I applaud her efforts and strength, normalize her frustration and provide therapeutic listening, recitation of scripture and prayer. Patient responded well and showed signs of and elevated mood and reduced stress. I will continue to remain available to patient and family.
[2023-07-05 16:03] LABS: Bun/Creatinine Ratio 13.4 (12.0-20.0); Calcium, Blood 8.7 mg/dL (8.5-10.1); Creatinine, Blood 1.27 mg/dL (0.40-1.00); Potassium, Blood 3.3 mmol/L (3.5-5.5)
[2023-07-05 16:20] VITALS: BP 134/68
--- NOTE | 2023-07-05 19:15 | NUR ---
SHIFT SUMMARY: MEL IS A&OX4. VSS, NO ACUTE EVENTS THIS SHIFT. SHE IS INDEPENDENT IN THE ROOM, TOLERATING PO INTAKE WELL BUT REPORTS A POOR APPETITE, POWERGLIDE TO CHRIS PATENT. PT TOOK A SHOWER THIS AFTERNOON. POTASSIUM IMPROVED FROM 2.3 TO 3.3 THIS SHIFT. SHE IS LYING IN BED WITH THE CALL LIGHT IN REACH. WCTM UNTIL REPORT IS GIVEN TO NATIONAL SALES RN.
[2023-07-05 19:30] VITALS: BP 131/76
[2023-07-06 03:13] VITALS: BP 129/68
[2023-07-06 07:24] LABS: BASOPHILS ABSOLUTE AUTO 0.21 K/mm3 (0.00-0.23); BASOPHILS PERCENT AUTO 2 % (0-2); EOSINOPHILS ABSOLUTE AUTO 0.42 K/mm3 (0.00-0.68); EOSINOPHILS PERCENT AUTO 3 % (0-6); Hematocrit 26.2 % (33.0-51.0); Hemoglobin 9.6 g/dL (11.5-16.0); IMMATURE GRAN ABSOLUTE AUTO 0.27 K/mm3 (0.00-0.10); IMMATURE GRAN PERCENT AUTO 2 % (0-1); LYMPHOCYTES ABSOLUTE AUTO 1.84 K/mm3 (0.84-5.20); LYMPHOCYTES PERCENT AUTO 14 % (21-46); MONOCYTES ABSOLUTE AUTO 2.44 K/mm3 (0.16-1.47); MONOCYTES PERCENT AUTO 18 % (4-13); Mean Corpuscular HGB 34.2 pg (26.0-34.0); Mean Corpuscular HGB Conc 36.6 g/dL (31.5-36.5); Mean Corpuscular Volume 93 fL (80-100); NEUTROPHILS ABSOLUTE AUTO 8.34 K/mm3 (1.96-9.15); NEUTROPHILS PERCENT AUTO 62 % (41-73); Platelet Count 285 K/mm3 (150-400); RDW Coefficient Variation 16.7 % (11.7-14.2); Red Blood Cell Count 2.81 M/mm3 (3.80-5.20); White Blood Cell Count 13.52 K/mm3 (4.00-11.30)
[2023-07-06 07:26] VITALS: BP 133/70
[2023-07-06 07:36] LABS: Bun/Creatinine Ratio 13.2 (12.0-20.0); Calcium, Blood 8.7 mg/dL (8.5-10.1); Creatinine, Blood 1.36 mg/dL (0.40-1.00)
--- NOTE | 2023-07-06 10:52 | NUR ---
PT'S MOTHER AT BEDSIDE. HOUSEKEEPING PROVIDING DAILY ROOM CLEANING.
[2023-07-06 14:10] LABS: ANCA BY IFA (RDL) Positive (Negative); ANTI-MPO AB (RDL) <20 Units (<20); ANTI-NUCLEAR AB BY IFA (RDL) Positive (Negative); ANTI-PR-3 AB (RDL) <20 Units (<20); C-ANCA (IFA-ETOH) <1:10 (<1:10); P-ANCA (IFA-ETOH) 1:10 (<1:10); P-ANCA (IFA-FORMALIN) Positive (Negative); SPECKLED PATTERN 1:40 (<1:40)
[2023-07-06 15:28] VITALS: BP 143/86
[2023-07-06 15:57] LABS: Calcium, Blood 8.3 mg/dL (8.5-10.1); Creatinine, Blood 1.36 mg/dL (0.40-1.00); Potassium, Blood 3.9 mmol/L (3.5-5.5)
--- NOTE | 2023-07-06 17:02 | NUR ---
Spiritual care visit conducted. Patient is sitting on the EOB and alert. She tells me that she is just waiting for the Potassium numbers to be elevated enough for her to go home. She states that she is ready to go home and that she has the pieces in place to do so. She voices much gratitude for the spiritual care that she has received during this hospital stay.
[2023-07-06] MEDS ORDERED: URSO300 PO (18:18)
--- NOTE | 2023-07-06 20:38 | NUR ---
PT DISCHARGED HOME. WRITTEN COPY OF DISCHARGE INSTRUCTIONS SENT HOME WITH PT. POWERGLIDE REMOVED. PT TRANSPORTED TO EXIT VIA WHEELCHAIR. PT'S MOTHER PROVIDING TRANSPORTATION HOME VIA PERSONAL VEHICLE. ALL PERSONAL BELONGINGS SENT HOME WITH PT.
[2023-07-07] MEDS ORDERED: CEFP200 PO (21:14)
[2023-07-07] MEDS ORDERED: ACTIGALL300 MG PO (21:14)
[2023-07-07] MEDS ORDERED: Roxicodone5 MG PO (21:14)
== END 2023-07-06 20:31 | disposition home or self-care (01) | DRG 442 ==
LOC: ER 11:21 → MEDS 16:13 → ENPENDDIS 06-18 12:27 → MEDS 07-06 20:31
PROVIDERS: Family Medicine; Family Medicine Adult Medicine; Student in an Organized Health Care Education/Training Program; ADMIT Internal Medicine
PROC: 0FB13ZX Excision of Right Lobe Liver, Percutaneous Approach, Diagnostic (ICD-10-PCS; principal; 2023-06-22)
PROC: 30233J1 Transfusion of Nonautologous Serum Albumin into Peripheral Vein, Percutaneous Approach (ICD-10-PCS; 2023-06-24)
DX: B17.9 Acute viral hepatitis, unspecified (principal); E72.20 Disorder of urea cycle metabolism, unspecified; N17.9 Acute kidney failure, unspecified; N39.0 Urinary tract infection, site not specified; K74.60 Unspecified cirrhosis of liver; R74.8 Abnormal levels of other serum enzymes; J45.909 Unspecified asthma, uncomplicated; L80 Vitiligo; E06.3 Autoimmune thyroiditis; M79.7 Fibromyalgia; M25.562 Pain in left knee; G89.29 Other chronic pain; K21.9 Gastro-esophageal reflux disease without esophagitis; G43.909 Migraine, unspecified, not intractable, without status migrainosus; R04.0 Epistaxis; E87.6 Hypokalemia; M79.89 Other specified soft tissue disorders; R32 Unspecified urinary incontinence; E03.9 Hypothyroidism, unspecified; Z98.1 Arthrodesis status; Z98.890 Other specified postprocedural states; Z90.710 Acquired absence of both cervix and uterus; Z90.721 Acquired absence of ovaries, unilateral; Z85.41 Personal history of malignant neoplasm of cervix uteri; Z90.49 Acquired absence of other specified parts of digestive tract; Z90.89 Acquired absence of other organs; Z60.2 Problems related to living alone; Z79.84 Long term (current) use of oral hypoglycemic drugs; Z79.891 Long term (current) use of opiate analgesic; Z88.2 Allergy status to sulfonamides; Z88.5 Allergy status to narcotic agent; Z88.8 Allergy status to other drugs, medicaments and biological substances; Z79.51 Long term (current) use of inhaled steroids; Z79.899 Other long term (current) drug therapy; Z79.2 Long term (current) use of antibiotics
CPT/HCPCS: 36415; 47000; 71046; 74181; 76705; 76937; 80048; 80053; 80074; 81001; 81025; 82103; 82140; 82247; 82248; 82784; 82977; 83516; 83690; 83735; 84439; 84443; 84481; 85007; 85025; 85027; 85049; 85379; 85610; 85730; 86015; 86036; 86038; 86381; 86645; 86665; 86850; 86900; 86901; 87040; 87086; 88305; 88313; 93306; 93971; 94640; 94664; 94760; 94762; 96374; 97161; 97165; 97530; 97535; 99152; 99153; 99285-25; A9270; C1769; C1887; C1894; G0480; J0696; J1644; J2250; J2405; J2765; J3010; J3420; J3480; J7030; J7040; J7050; P9047; Q9967

== ENCOUNTER 2023-07-07 17:39 | Emergency (ER) | payer OTHER ==
[~2023-07-07] VITALS: Ht 167.6 cm; Wt 108.9 kg
[~2023-07-07 17:39] MED LIST changes: +ALBENDAZOLE200 MG PO; +Doxycycline Mo100 M1; +MELATONIN5 M1 PO; +NITAZOXANIDE500 MG PO; +URSO300 PO
[2023-07-07 17:41] VITALS: BP 144/91
[2023-07-07 18:12] LABS: BASOPHILS ABSOLUTE AUTO 0.22 K/mm3 (0.00-0.23); BASOPHILS PERCENT AUTO 1 % (0-2); EOSINOPHILS ABSOLUTE AUTO 0.16 K/mm3 (0.00-0.68); EOSINOPHILS PERCENT AUTO 1 % (0-6); Hematocrit 32.8 % (33.0-51.0); Hemoglobin 11.9 g/dL (11.5-16.0); IMMATURE GRAN ABSOLUTE AUTO 0.47 K/mm3 (0.00-0.10); IMMATURE GRAN PERCENT AUTO 3 % (0-1); LYMPHOCYTES PERCENT AUTO 9 % (21-46); MONOCYTES PERCENT AUTO 15 % (4-13); Mean Corpuscular HGB 33.7 pg (26.0-34.0); Mean Corpuscular HGB Conc 36.3 g/dL (31.5-36.5); Mean Corpuscular Volume 93 fL (80-100); Mean Platelet Volume 10.1 fL (9.1-12.4); NEUTROPHILS PERCENT AUTO 72 % (41-73); Platelet Count 307 K/mm3 (150-400); RDW Coefficient Variation 17.2 % (11.7-14.2); Red Blood Cell Count 3.53 M/mm3 (3.80-5.20); White Blood Cell Count 19.05 K/mm3 (4.00-11.30)
[2023-07-07 18:27] LABS: Alanine Aminotransfer (ALT/SGP 139 U/L (12-78); Albumin, Blood 2.2 g/dL (3.4-5.0); Albumin/Globulin Ratio 0.7 (0.8-1.8); Alk Phos 317 U/L (50-136); Anion Gap 7 mmol/L (6-16); Aspartate Aminotrans (AST/SGOT 238 U/L (12-37); Bilirubin, Total 21.7 mg/dL (0.1-1.0); Blood Urea Nitrogen 19 mg/dL (8-24); Bun/Creatinine Ratio 15.1 (12.0-20.0); CO2, Blood 24 mmol/L (21-32); Calcium, Blood 8.7 mg/dL (8.5-10.1); Chloride, Blood 97 mmol/L (98-108); Creatinine, Blood 1.26 mg/dL (0.40-1.00); Ethanol (Alcohol), Blood, Med <3 mg/dL; Globulin, Blood 3.1 g/dL (2.2-4.0); Glomerular Filtration Rate 49 (60-); Glucose, Blood 126 mg/dL (70-99); Potassium, Blood 3.8 mmol/L (3.5-5.5); Sodium, Blood 128 mmol/L (136-145); Total Protein, Blood 5.3 g/dL (6.4-8.2)
[2023-07-07 19:24] LABS: Influenza A, PCR NEGATIVE (NEGATIVE); Influenza B, PCR NEGATIVE (NEGATIVE); Resp Syncytial Virus, PCR NEGATIVE (NEGATIVE); SARS-Cov-2 (COVID-19) PCR, MMC NEGATIVE (NEGATIVE)
[2023-07-07 19:36] LABS: Source, Urine Straight Cath
[2023-07-07 20:06] LABS: Appearance, Urine Hazy (Clear); Blood, Urine 1+ (Neg); Glucose Qualitative, Urine Neg (Neg); Ketones, Urine Neg (Neg); Leukocyte Esterase, Urine 1+ (Neg); Nitrite, Urine Neg (Neg); Protein, Urine Neg (Neg); Specific Gravity, Urine 1.015 (1.003-1.022); Urobilinogen, Urine 3+ (Normal)
[2023-07-07 20:07] LABS: Base Excess Venous 1.9 mmol/L; Bicarbonate Venous 25.8 mmol/L (24.0-30.0); pH Blood Venous 7.43 (7.34-7.37)
[2023-07-07 20:21] LABS: Bilirubin, Urine 3+ (Neg); Color, Urine Orange (P-Yellow); U Amphetamine Screen Not Detected; U Barbituate Screen Not Detected; U Benzodiazapine Screen Not Detected; U Buprenorphine Screen Not Detected; U Cannabinoids Screen Not Detected; U Cocaine Screen Not Detected; U Methadone Screen Not Detected; U Methamphetamine Screen Not Detected; U Opiates Screen Not Detected; U Oxycodone Screen DETECTED; U Phencyclidine Screen Not Detected; U Propoxyphene Screen Not Detected
[2023-07-07 20:31] LABS: Squamous Epithelial Cells Few /hpf (Few)
[2023-07-07 20:32] LABS: Bacteria Mod /hpf; Hyaline Casts 0-2 /lpf (0-2)
[2023-07-07] MEDS ORDERED: ACTIGALL300 MG PO (21:14)
[2023-07-07] MEDS ORDERED: CEFP200 PO (21:14)
[2023-07-07] MEDS ORDERED: Roxicodone5 MG PO (21:14)
== END 2023-07-07 21:44 | disposition home or self-care (01) ==
LOC: ER 17:39
PROVIDERS: Emergency Medicine
DX: K75.9 Inflammatory liver disease, unspecified (principal); N39.0 Urinary tract infection, site not specified; G89.29 Other chronic pain; E03.9 Hypothyroidism, unspecified; Z20.822 Contact with and (suspected) exposure to COVID-19; Z88.1 Allergy status to other antibiotic agents; Z88.2 Allergy status to sulfonamides; Z88.5 Allergy status to narcotic agent; Z79.899 Other long term (current) drug therapy; Z79.890 Hormone replacement therapy
CPT/HCPCS: 0241U; 71045; 80053; 81001; 82140; 82803; 83690; 83880; 85025; 87086; 93005; 93010; 96361; 96365; 99285-25; A9270; J0696; J7030

== ENCOUNTER → 2023-07-30 | Outpatient (CLI) | payer OTHER ==
[~2023-07-30] MED LIST changes: +ACTIGALL300 MG PO; +CEFP200 PO; +Roxicodone5 MG PO
[2023-07-30 16:06] LABS: Alanine Aminotransfer (ALT/SGP 46 U/L (12-78); Albumin, Blood 2.7 g/dL (3.4-5.0); Albumin/Globulin Ratio 0.8 (0.8-1.8); Alk Phos 318 U/L (50-136); Anion Gap 6 mmol/L (6-16); Aspartate Aminotrans (AST/SGOT 50 U/L (12-37); Bilirubin, Direct 6.6 mg/dL (0.0-0.3); Bilirubin, Indirect 1.2 mg/dL (0.1-0.7); Bilirubin, Total 7.8 mg/dL (0.1-1.0); Blood Urea Nitrogen 11 mg/dL (8-24); Bun/Creatinine Ratio 14.1 (12.0-20.0); CO2, Blood 25 mmol/L (21-32); Chloride, Blood 101 mmol/L (98-108); Creatinine, Blood 0.78 mg/dL (0.40-1.00); Globulin, Blood 3.2 g/dL (2.2-4.0); Glomerular Filtration Rate 87 (60-); Glucose, Blood 252 mg/dL (70-99); Phosphorus, Blood 2.6 mg/dL (2.5-4.9); Potassium, Blood 3.9 mmol/L (3.5-5.5); Sodium, Blood 132 mmol/L (136-145); Total Protein, Blood 5.9 g/dL (6.4-8.2)
== END ==
LOC: LAB 13:38 → LAB SHORT 13:38
PROVIDERS: Internal Medicine Hematology & Oncology
DX: D50.9 Iron deficiency anemia, unspecified (principal)
CPT/HCPCS: 80053; 82248; 84100

== ENCOUNTER 2024-09-30 17:13 | Emergency (ER) | payer OTHER ==
[~2024-09-30] VITALS: Ht 157.5 cm; Wt 63.5 kg
[2024-09-30 18:12] LABS: Hematocrit 45.6 % (33.0-51.0); Hemoglobin 14.9 g/dL (11.5-16.0); Mean Corpuscular HGB 27.7 pg (26.0-34.0); Mean Corpuscular HGB Conc 32.7 g/dL (31.5-36.5); Mean Corpuscular Volume 85 fL (80-100); Mean Platelet Volume 9.4 fL (9.1-12.4); Platelet Count 345 K/mm3 (150-400); RDW Coefficient Variation 15.6 % (11.7-14.2); RDW Standard Deviation 48.1 fL (35.1-46.3); Red Blood Cell Count 5.38 M/mm3 (3.80-5.20); White Blood Cell Count 6.92 K/mm3 (4.00-11.30)
[2024-09-30 18:14] LABS: CORONAVIRUS COVID-19 AG Negative (NEGATIVE); INFLUENZA A AG Negative (NEGATIVE); INFLUENZA B AG Negative (NEGATIVE)
[2024-09-30 18:37] LABS: Albumin, Blood 3.5 g/dL (3.4-5.0); Albumin/Globulin Ratio 0.8 (0.8-1.8); Bilirubin, Total 0.8 mg/dL (0.1-1.0); Bun/Creatinine Ratio 22.3 (12.0-20.0); Calcium, Blood 8.9 mg/dL (8.5-10.1); Creatinine, Blood 0.58 mg/dL (0.40-1.00); Globulin, Blood 4.5 g/dL (2.2-4.0); Potassium, Blood 5.2 mmol/L (3.5-5.5)
[2024-09-30 18:42] LABS: BASOPHILS ABSOLUTE MAN 0.13 K/mm3 (0.00-0.23); BASOPHILS PERCENT MAN 2 % (0-2); EOSINOPHILS PERCENT MAN 0 % (0-6); LYMPHOCYTES % ATYPICAL MANUAL 1 % (0-0); LYMPHOCYTES ABSOLUTE MAN 3.46 K/mm3 (0.84-5.20); LYMPHOCYTES PERCENT MAN 49 % (21-46); MONOCYTES ABSOLUTE MAN 0.48 K/mm3 (0.16-1.47); MONOCYTES PERCENT MAN 7 % (4-13); NEUTROPHILS ABSOLUTE MAN 2.83 K/mm3 (1.96-9.15); SEG NEUTROPHILS PERCENT MAN 41 % (41-73); TOTAL CELLS COUNTED 100
[2024-09-30 19:29] LABS: Source, Urine Clean Catch
[2024-09-30 19:32] LABS: Appearance, Urine Clear (Clear); Bilirubin, Urine Neg (Neg); Blood, Urine Neg (Neg); Color, Urine Yellow (P-Yellow); Glucose Qualitative, Urine Neg (Neg); Ketones, Urine Neg (Neg); Leukocyte Esterase, Urine 1+ (Neg); Nitrite, Urine Neg (Neg); Protein, Urine 1+ (Neg); Specific Gravity, Urine 1.015 (1.003-1.022); Urobilinogen, Urine 1+ (Normal); pH, Urine 6.5 (5.0-8.0)
[2024-09-30 19:39] LABS: Bacteria Few /hpf; Red Blood Cells, Urine 0-2 /hpf (0-2); Squamous Epithelial Cells Mod /hpf (Few)
[2024-09-30] MEDS ORDERED: ACET500 PO (20:09)
[2024-09-30] MEDS ORDERED: IBUP600 PO (20:09)
[2024-09-30] MEDS ORDERED: Ibuprofen 600 MG Tab PO ONE (20:10)
[2024-09-30 20:34] VITALS: BP 118/64
== END 2024-09-30 20:35 | disposition home or self-care (01) ==
LOC: ER 17:13
PROVIDERS: Student in an Organized Health Care Education/Training Program
DX: B34.9 Viral infection, unspecified (principal); E03.9 Hypothyroidism, unspecified; Z79.899 Other long term (current) drug therapy; Z88.1 Allergy status to other antibiotic agents; Z88.2 Allergy status to sulfonamides; Z88.5 Allergy status to narcotic agent
CPT/HCPCS: 71046; 80053; 81001; 85025; 87077; 87086; 87186; 87428-QW; 93005; 93010; 99285-25; A9270

== ENCOUNTER 2025-03-18 23:42 | Emergency (ER) | payer OTHER ==
[~2025-03-18] VITALS: Ht 157.5 cm; Wt 61.7 kg
[~2025-03-18 23:42] MED LIST changes: +ACET500 PO; +IBUP600 PO
[2025-03-18 23:51] VITALS: BP 162/97
[2025-03-18] MEDS ORDERED: Cephalexin Monohydrate 500 MG Cap PO ONE (23:55)
[2025-03-18] MEDS ORDERED: Triamcinolone Inj Susp 40 MG / ML 1ML Vial IM ONE (23:55)
[2025-03-18] MEDS ORDERED: CEPH500 PO (23:55)
== END 2025-03-19 00:16 | disposition home or self-care (01) ==
LOC: ER 23:42
DX: L23.7 Allergic contact dermatitis due to plants, except food (principal); L03.119 Cellulitis of unspecified part of limb; Z88.2 Allergy status to sulfonamides; Z88.5 Allergy status to narcotic agent; Z79.899 Other long term (current) drug therapy; Z79.890 Hormone replacement therapy; Z90.49 Acquired absence of other specified parts of digestive tract; Z90.711 Acquired absence of uterus with remaining cervical stump; Z90.89 Acquired absence of other organs
CPT/HCPCS: 96372; 99282; A9270; J3301

== ENCOUNTER 2025-03-24 00:28 | Inpatient (IN) | payer OTHER ==
[~2025-03-24] VITALS: Ht 157.5 cm; Wt 72.5 kg
[2025-03-24] MEDS ORDERED: Ketorolac Tromethamine 15mg Vial IV ONE (02:00)
[2025-03-24 02:33] LABS: BASOPHILS ABSOLUTE AUTO 0.12 K/mm3 (0.00-0.23); BASOPHILS PERCENT AUTO 0 % (0-2); EOSINOPHILS ABSOLUTE AUTO 0.11 K/mm3 (0.00-0.68); EOSINOPHILS PERCENT AUTO 0 % (0-6); Hematocrit 37.3 % (33.0-51.0); Hemoglobin 11.9 g/dL (11.5-16.0); IMMATURE GRAN ABSOLUTE AUTO 0.54 K/mm3 (0.00-0.10); IMMATURE GRAN PERCENT AUTO 1 % (0-1); LYMPHOCYTES ABSOLUTE AUTO 1.31 K/mm3 (0.84-5.20); LYMPHOCYTES PERCENT AUTO 4 % (21-46); MONOCYTES ABSOLUTE AUTO 1.85 K/mm3 (0.16-1.47); MONOCYTES PERCENT AUTO 5 % (4-13); Mean Corpuscular HGB Conc 31.9 g/dL (31.5-36.5); Mean Corpuscular Volume 87 fL (80-100); NEUTROPHILS ABSOLUTE AUTO 33.93 K/mm3 (1.96-9.15); NEUTROPHILS PERCENT AUTO 90 % (41-73); NRBC ABSOLUTE 0.00 K/mm3 (0.00-0.02); NRBC Auto 0.0 /100 WBC (0.0-0.2); Platelet Count 313 K/mm3 (150-400); RDW Coefficient Variation 17.2 % (11.7-14.2); RDW Standard Deviation 54.9 fL (35.1-46.3)
[2025-03-24 03:00] LABS: Alanine Aminotransfer (ALT/SGP 71 U/L (12-78); Albumin, Blood 3.1 g/dL (3.4-5.0); Albumin/Globulin Ratio 0.8 (0.8-1.8); Anion Gap 9 mmol/L (3-11); Aspartate Aminotrans (AST/SGOT 72 U/L (12-37); Bilirubin, Total 2.5 mg/dL (0.1-1.0); Blood Urea Nitrogen 18 mg/dL (8-24); CO2, Blood 25 mmol/L (21-32); Calcium, Blood 8.0 mg/dL (8.5-10.1); Chloride, Blood 100 mmol/L (98-108); Creatinine, Blood 0.78 mg/dL (0.40-1.00); Globulin, Blood 4.0 g/dL (2.2-4.0); Glucose, Blood 183 mg/dL (70-99); Potassium, Blood 4.1 mmol/L (3.5-5.5); Sodium, Blood 130 mmol/L (136-145); Total Protein, Blood 7.1 g/dL (6.4-8.2)
[2025-03-24] MEDS ORDERED: Vancomycin (Pharmacy Consult) IV PRN (03:25)
[2025-03-24] MEDS ORDERED: Vancomycin (Pharmacy Consult) IV SCH (04:30)
[2025-03-24] MEDS ORDERED: Ondansetron HCl 2 MG / ML 2ML Vial IV PRN (04:35)
[2025-03-24 04:51] LABS: Bilirubin, Direct 0.5 mg/dL (0.0-0.3); Bilirubin, Indirect 2.0 mg/dL (0.1-0.7); Ethanol (Alcohol), Blood, Med <3 mg/dL
[2025-03-24 05:00] LABS: Acetaminophen, Random <2.0 ug/mL (10.0-30.0)
[2025-03-24] MEDS ORDERED: NS 1,000 ML IV SCH ×2 (05:00→19:00)
[2025-03-24] MEDS ORDERED: LEVO T PO (05:43)
[2025-03-24] MEDS ORDERED: URSODIOL500 MG PO (05:48)
[2025-03-24 05:54] LABS: BASOPHILS ABSOLUTE AUTO 0.09 K/mm3 (0.00-0.23); BASOPHILS PERCENT AUTO 0 % (0-2); EOSINOPHILS ABSOLUTE AUTO 0.27 K/mm3 (0.00-0.68); EOSINOPHILS PERCENT AUTO 1 % (0-6); Hematocrit 32.8 % (33.0-51.0); Hemoglobin 10.7 g/dL (11.5-16.0); IMMATURE GRAN ABSOLUTE AUTO 0.51 K/mm3 (0.00-0.10); IMMATURE GRAN PERCENT AUTO 2 % (0-1); LYMPHOCYTES ABSOLUTE AUTO 1.54 K/mm3 (0.84-5.20); LYMPHOCYTES PERCENT AUTO 4 % (21-46); MONOCYTES ABSOLUTE AUTO 2.58 K/mm3 (0.16-1.47); MONOCYTES PERCENT AUTO 7 % (4-13); Mean Corpuscular HGB Conc 32.6 g/dL (31.5-36.5); Mean Corpuscular Volume 85 fL (80-100); NEUTROPHILS ABSOLUTE AUTO 29.80 K/mm3 (1.96-9.15); NEUTROPHILS PERCENT AUTO 86 % (41-73); NRBC ABSOLUTE 0.00 K/mm3 (0.00-0.02); NRBC Auto 0.0 /100 WBC (0.0-0.2); Platelet Count 307 K/mm3 (150-400); RDW Coefficient Variation 16.8 % (11.7-14.2); RDW Standard Deviation 52.4 fL (35.1-46.3)
[2025-03-24 06:21] LABS: Prothrombin Time Results 13.0 Sec (9.7-11.5)
[2025-03-24 06:22] LABS: Alanine Aminotransfer (ALT/SGP 60.0 U/L (12-78); Albumin, Blood 2.8 g/dL (3.4-5.0); Albumin/Globulin Ratio 0.8 (0.8-1.8); Anion Gap 9.0 mmol/L (3-11); Aspartate Aminotrans (AST/SGOT 50.0 U/L (12-37); Bilirubin, Total 2.1 mg/dL (0.1-1.0); Blood Urea Nitrogen 20.0 mg/dL (8-24); CO2, Blood 29.0 mmol/L (21-32); Calcium, Blood 8.2 mg/dL (8.5-10.1); Chloride, Blood 97.0 mmol/L (98-108); Creatinine, Blood 0.84 mg/dL (0.40-1.00); Globulin, Blood 3.3 g/dL (2.2-4.0); Glucose, Blood 132.0 mg/dL (70-99); Magnesium, Blood 1.9 mg/dL (1.6-2.4); Potassium, Blood 3.0 mmol/L (3.5-5.5); Sodium, Blood 132.0 mmol/L (136-145); Total Protein, Blood 6.1 g/dL (6.4-8.2)
[2025-03-24 06:33] VITALS: BP 123/66
[2025-03-24 07:33] VITALS: BP 127/60
--- NOTE | 2025-03-24 07:36 | NUR ---
RECEIVED FROM ER AT 0630. A&O X4, VSS, DROWSY BUT COHERENT AND MENTALLY OK. SKIN CHECKED W/ CRIS AND NOTED RASHES / BLISTERS ALL OVER THE SKIN DUE TO WORSENED POISON OAKS. LIVER BOBBY AND BLOOD WORKS DONE AT ROOM. RELAYED LACTIC ACID RESULT TO RESIDENT ON DUTY.
[2025-03-24] MEDS ORDERED: Ketorolac Tromethamine 15mg Vial IV PRN (08:00)
[2025-03-24] MEDS ORDERED: Enoxaparin 40 MG/0.4 ML SYR SC SCH (09:00)
[2025-03-24] MEDS ORDERED: Lactobacil 2-S.Thermo-Bifido 1 1 Cap PO SCH (09:00)
[2025-03-24 16:14] VITALS: BP 118/54
--- NOTE | 2025-03-24 17:09 | NUR ---
PT PLEASANT TODAY. PAIN MANAGED WITH AVAIL MEDS. DID HAVE MEDIUM DARK URINE THIS AFTERNOON. STATES WAS TOO PAINFUL TO AMBULATE TO BATHROOM THIS AFTERNOON. MOTHER IN TO VISIT TODAY. ANTIBIOTICS PER ORDERS. NO OTHER NWE CONCERNS NOTED. BED IN LOW POSITION, CALL LITE IN REACH, CALLS APPROP
[2025-03-24 19:46] VITALS: BP 109/56
[2025-03-25 01:33] LABS: BASOPHILS ABSOLUTE AUTO 0.11 K/mm3 (0.00-0.23); BASOPHILS PERCENT AUTO 0 % (0-2); EOSINOPHILS ABSOLUTE AUTO 1.14 K/mm3 (0.00-0.68); EOSINOPHILS PERCENT AUTO 4 % (0-6); Hematocrit 32.3 % (33.0-51.0); Hemoglobin 10.4 g/dL (11.5-16.0); IMMATURE GRAN ABSOLUTE AUTO 0.48 K/mm3 (0.00-0.10); IMMATURE GRAN PERCENT AUTO 2 % (0-1); LYMPHOCYTES ABSOLUTE AUTO 1.42 K/mm3 (0.84-5.20); LYMPHOCYTES PERCENT AUTO 5 % (21-46); MONOCYTES ABSOLUTE AUTO 1.21 K/mm3 (0.16-1.47); MONOCYTES PERCENT AUTO 4 % (4-13); Mean Corpuscular HGB Conc 32.2 g/dL (31.5-36.5); Mean Corpuscular Volume 86 fL (80-100); NEUTROPHILS ABSOLUTE AUTO 24.81 K/mm3 (1.96-9.15); NEUTROPHILS PERCENT AUTO 85 % (41-73); NRBC ABSOLUTE 0.00 K/mm3 (0.00-0.02); NRBC Auto 0.0 /100 WBC (0.0-0.2); Platelet Count 284 K/mm3 (150-400); RDW Coefficient Variation 17.0 % (11.7-14.2); RDW Standard Deviation 53.6 fL (35.1-46.3)
[2025-03-25 02:00] LABS: Alanine Aminotransfer (ALT/SGP 50.0 U/L (12-78); Albumin, Blood 2.6 g/dL (3.4-5.0); Albumin/Globulin Ratio 0.7 (0.8-1.8); Anion Gap 7.0 mmol/L (3-11); Aspartate Aminotrans (AST/SGOT 27.0 U/L (12-37); Bilirubin, Total 1.2 mg/dL (0.1-1.0); Blood Urea Nitrogen 16.0 mg/dL (8-24); CO2, Blood 27.0 mmol/L (21-32); Calcium, Blood 8.2 mg/dL (8.5-10.1); Chloride, Blood 102.0 mmol/L (98-108); Creatinine, Blood 0.82 mg/dL (0.40-1.00); Globulin, Blood 3.6 g/dL (2.2-4.0); Glucose, Blood 166.0 mg/dL (70-99); Potassium, Blood 3.9 mmol/L (3.5-5.5); Sodium, Blood 132.0 mmol/L (136-145); Total Protein, Blood 6.2 g/dL (6.4-8.2)
[2025-03-25] MEDS ORDERED: NS 250 ML IV PRN (04:15)
[2025-03-25 04:30] VITALS: BP 125/65
--- NOTE | 2025-03-25 07:02 | NUR ---
SUMMARY A&O X4 BUT VERY DROWSY, WEAK, AND APPEARS UNCOMFORTABLY MISERABLE. CONTINUED IV HYDRATION AND ENCOURAGED TO DRINK. SEEN EARLY IN THE MORNING UNCOMFORTABLE AND NOT VERBALISING PAIN, BUT RESPONDS 10 WHEN ASKED, ADM PAIN MEDS AND ENCOURAGED TO VOICE OUT ANY CONCERN. SKIN HAS NO IMPROVEMENT. INSERTED NEW IV SITE AT R UPPER ARM FOR VANCOMYCIN INFUSION. VSS THROUGHOUT.
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
[2025-03-25 08:19] VITALS: BP 127/71
[2025-03-25] MEDS ORDERED: Albuterol HFA200 ACT/6.7 GM INH INH PRN (13:00)
[2025-03-25] MEDS ORDERED: Cyanocobalamin 1000 MCG/ML 1ML Vial IM SCH (13:00)
[2025-03-25] MEDS ORDERED: NS 1,000 ML IV ONE (14:00)
[2025-03-25 17:59] VITALS: BP 140/80
[2025-03-25 18:05] LABS: Vancomycin, Trough 12.7 ug/mL (5.0-10.0)
--- NOTE | 2025-03-25 19:24 | NUR ---
PT PLEASNT TODAY. DID HVE PAIN EARLY THIS MELANIE. MED PER EMAR. AMARAL LATE R/T LAB DRAW LATE. NOTED. PT GOT SHOWER AND STATES GOT LEG WARM AND GOT SOME DRAINAGE ON LEFT FOOT AREA. PT URINE DARK [place]. CALLED , ORDERS FOR 1 LITER FLUID MADE TODAY. PT STATES FEELS SOME BETTER TODAY. BED IN LOW POSITION, CALL LITE IN REACH, CALLS APPROP
[2025-03-25 19:59] VITALS: BP 129/69
[2025-03-26 04:45] VITALS: BP 123/73
[2025-03-26 05:17] LABS: BASOPHILS ABSOLUTE AUTO 0.08 K/mm3 (0.00-0.23); BASOPHILS PERCENT AUTO 0 % (0-2); EOSINOPHILS ABSOLUTE AUTO 1.12 K/mm3 (0.00-0.68); EOSINOPHILS PERCENT AUTO 5 % (0-6); Hematocrit 32.0 % (33.0-51.0); Hemoglobin 10.2 g/dL (11.5-16.0); IMMATURE GRAN ABSOLUTE AUTO 0.35 K/mm3 (0.00-0.10); IMMATURE GRAN PERCENT AUTO 2 % (0-1); LYMPHOCYTES ABSOLUTE AUTO 1.65 K/mm3 (0.84-5.20); LYMPHOCYTES PERCENT AUTO 7 % (21-46); MONOCYTES ABSOLUTE AUTO 1.36 K/mm3 (0.16-1.47); MONOCYTES PERCENT AUTO 6 % (4-13); Mean Corpuscular HGB Conc 31.9 g/dL (31.5-36.5); Mean Corpuscular Volume 86 fL (80-100); NEUTROPHILS ABSOLUTE AUTO 18.36 K/mm3 (1.96-9.15); NEUTROPHILS PERCENT AUTO 80 % (41-73); NRBC ABSOLUTE 0.00 K/mm3 (0.00-0.02); NRBC Auto 0.0 /100 WBC (0.0-0.2); Platelet Count 313 K/mm3 (150-400); RDW Coefficient Variation 16.8 % (11.7-14.2); RDW Standard Deviation 52.7 fL (35.1-46.3)
[2025-03-26 05:44] LABS: Alanine Aminotransfer (ALT/SGP 46.0 U/L (12-78); Albumin, Blood 2.5 g/dL (3.4-5.0); Albumin/Globulin Ratio 0.6 (0.8-1.8); Anion Gap 8.0 mmol/L (3-11); Aspartate Aminotrans (AST/SGOT 19.0 U/L (12-37); Bilirubin, Total 1.1 mg/dL (0.1-1.0); Blood Urea Nitrogen 14.0 mg/dL (8-24); CO2, Blood 25.0 mmol/L (21-32); Calcium, Blood 8.2 mg/dL (8.5-10.1); Chloride, Blood 104.0 mmol/L (98-108); Creatinine, Blood 0.79 mg/dL (0.40-1.00); Globulin, Blood 3.9 g/dL (2.2-4.0); Glucose, Blood 161.0 mg/dL (70-99); Potassium, Blood 4.1 mmol/L (3.5-5.5); Sodium, Blood 133.0 mmol/L (136-145); Total Protein, Blood 6.4 g/dL (6.4-8.2)
--- NOTE | 2025-03-26 06:33 | NUR ---
SUMMARY PLEASANT ON ROUNDS AND ACCOMPANIED BY RELATIVE. APPRECIATIVE AND THANKFUL FOR CARE PROVIDED. ALERT & ORIENTED BUT APPEARS WEAK AT NIGHT WHEN AWAKENS OCCASIONALLY. WITH EPISODE OF PAIN AND NAUSEA MANAGED BY MEDS. ON CONTINOUS IV HYDRATION AND ABX. RESITED CANNULA AND REFERRED TO ALESSANDRO FOR [facility] GUIDANCE DUE TO MULTIPLE ATTEMPTS / DIFFICULTY. ABLE TO REST WELL AFTER & TOLERATED CARE. URINE IS STILL CONCENTRATED BUT ADEQUATE.
[2025-03-26 08:31] VITALS: BP 147/86
[2025-03-26 15:59] LABS: Source, Urine Clean Catch
[2025-03-26 16:05] LABS: Bilirubin, Urine Neg (Neg); Color, Urine Yellow (P-Yellow); Glucose Qualitative, Urine Neg (Neg); Ketones, Urine Neg (Neg); Leukocyte Esterase, Urine Neg (Neg); Protein, Urine Neg (Neg); Specific Gravity, Urine 1.010 (1.003-1.022); Urobilinogen, Urine 2+ (Normal)
[2025-03-26 16:44] VITALS: BP 151/89
--- NOTE | 2025-03-26 19:51 | NUR ---
SHIFT SUMMARY PT A&OX4. PT ADMITTED DUE TO SEPSIS DUE TO CELLULITIS. PT IN CONTACT FOR ESBL IN URINE AND POISEN OAK. PT REPORTS NO CHEST PAIN. PT REPORTS PAIN OF LOWER EXTREMITY. PAIN MANAGED PER EMAR. ORDERED A ONE TIME DOSE OF OXYCODONE DURING SHIFT FOR PAIN MANAGEMENT. PT REPORTS NO NAUSEA. PT WORKED WITH PHYSICAL THERAPY TODAY, PHYSICAL THERAPY REPORTED "PT ABLE TO AMBULATE INDEPENDENTLY." PT REPORTED SOB, REPORTED PT SOB TO DR. HENDERSON REPORTED "MONITOR VITALS FOR INCREASED RR AND DECREASE SPO2." VSS. PT REPORTED INCREASE IN SWELLING OF LOWER EXTREMETY, THIS RN ASSESSED LEG AND NOTICED IT BEING HOT TO TOUCH. NOTIFIED DR. HENDERSON ORDERED ULTRASOUND TO ASSESS IF ABSESS IS PRESENT. THIS AFTERNOON PT HAS LOW GRADE FEVER OF 99.0. REPORTED LOW GRADE FEVER TO TURNED DOWN HEAT IN ROOM PER PT REQUEST. AWAITING ULTRASOUND RESULTS. PT IN BED, BED ON LOWEST POSITION, CALL LIGHT IN REACH.
[2025-03-26 20:23] LABS: HEPATITIS A ANTIBODY, IGM Negative (Negative); HEPATITIS C AB CIA INTERP Negative (Negative); HEPATITIS C ANTIBODY CIA INDEX 0.10 IV
[2025-03-26 20:59] LABS: U Amphetamine Screen DETECTED; U Barbituate Screen Not Detected; U Benzodiazapine Screen Not Detected; U Buprenorphine Screen Not Detected; U Cannabinoids Screen Not Detected; U Cocaine Screen Not Detected; U Methadone Screen Not Detected; U Methamphetamine Screen DETECTED; U Opiates Screen Not Detected; U Oxycodone Screen DETECTED; U Phencyclidine Screen Not Detected
[2025-03-26 21:17] VITALS: BP 132/71
[2025-03-27] VITALS (11 sets, daily range): BP systolic 131–154; BP diastolic 75–99
[2025-03-27 04:26] LABS: BASOPHILS ABSOLUTE AUTO 0.15 K/mm3 (0.00-0.23); BASOPHILS PERCENT AUTO 1 % (0-2); EOSINOPHILS ABSOLUTE AUTO 1.46 K/mm3 (0.00-0.68); EOSINOPHILS PERCENT AUTO 7 % (0-6); Hematocrit 31.3 % (33.0-51.0); Hemoglobin 10.2 g/dL (11.5-16.0); IMMATURE GRAN ABSOLUTE AUTO 0.62 K/mm3 (0.00-0.10); IMMATURE GRAN PERCENT AUTO 3 % (0-1); LYMPHOCYTES ABSOLUTE AUTO 2.06 K/mm3 (0.84-5.20); LYMPHOCYTES PERCENT AUTO 10 % (21-46); MONOCYTES ABSOLUTE AUTO 1.75 K/mm3 (0.16-1.47); MONOCYTES PERCENT AUTO 8 % (4-13); Mean Corpuscular HGB Conc 32.6 g/dL (31.5-36.5); Mean Corpuscular Volume 84 fL (80-100); NEUTROPHILS ABSOLUTE AUTO 15.20 K/mm3 (1.96-9.15); NEUTROPHILS PERCENT AUTO 72 % (41-73); NRBC ABSOLUTE 0.00 K/mm3 (0.00-0.02); NRBC Auto 0.0 /100 WBC (0.0-0.2); Platelet Count 356 K/mm3 (150-400); RDW Coefficient Variation 16.5 % (11.7-14.2); RDW Standard Deviation 50.5 fL (35.1-46.3)
[2025-03-27 04:48] LABS: Vancomycin, Trough 13.6 ug/mL (5.0-10.0)
[2025-03-27 04:50] LABS: Alanine Aminotransfer (ALT/SGP 43.0 U/L (12-78); Albumin, Blood 2.6 g/dL (3.4-5.0); Albumin/Globulin Ratio 0.6 (0.8-1.8); Anion Gap 6.0 mmol/L (3-11); Aspartate Aminotrans (AST/SGOT 17.0 U/L (12-37); Bilirubin, Total 0.8 mg/dL (0.1-1.0); Blood Urea Nitrogen 9.0 mg/dL (8-24); CO2, Blood 28.0 mmol/L (21-32); Calcium, Blood 8.5 mg/dL (8.5-10.1); Chloride, Blood 105.0 mmol/L (98-108); Creatinine, Blood 0.63 mg/dL (0.40-1.00); Globulin, Blood 4.1 g/dL (2.2-4.0); Glucose, Blood 109.0 mg/dL (70-99); Potassium, Blood 4.1 mmol/L (3.5-5.5); Sodium, Blood 135.0 mmol/L (136-145); Total Protein, Blood 6.7 g/dL (6.4-8.2)
--- NOTE | 2025-03-27 07:28 | NUR ---
SUMMARY ORIENTED. VSS. TRYING HER BEST TO TOLERATE PAIN AND NOT TO DISTURB HC PROVIDERS BUT STILL HAVING EPISODES OF ASKING FOR PAIN KILLERS. LEGS WARM AND APPEARS GETTING MORE WARM AND SWOLLEN RECENTLY. LEFT VOICE MESSAGE AT BOAT HOIST OPERATOR PHONE NUMBER, AWAITS TO BE SEEN TODAY. ENCOURAGED VERBALIZATION OF FEELINGS AND PAIN WHEN NEEDS MEDICATION. SLEPT COMFORTABLY W/ AT ROOM AT NIGHT THEY REQUESTED.
--- NOTE | 2025-03-27 14:08 | NUR ---
History, Chart, Medications and Allergies reviewed before start of procedure.Lungs clear T/O to Auscultation. Patient confirms NPO status and agrees with scheduled surgery.
[2025-03-27] MEDS ORDERED: Bupivacaine 0.5% Inj 10 ML Vial ONE (15:32)
[2025-03-27] MEDS ORDERED: Lidocaine HCL 1% 10 ML MDV ONE (15:33)
[2025-03-27] MEDS ORDERED: FentaNYL Citrate 50 MCG/ML 2 ML Injection ONE (15:53)
[2025-03-27] MEDS ORDERED: Midazolam HCl 1MG / ML 2ML Vial ONE (15:53)
[2025-03-27] MEDS ORDERED: Phenylephrine HCl 100 MCG/ML-NS 10MLSYR (1MG/10ML) ONE (15:58)
[2025-03-27] MEDS ORDERED: HYDROmorphone HCl/Pf 1MG SYR ONE (16:11)
[2025-03-27] MEDS ORDERED: Ketorolac Tromethamine 30mg Vial ONE (16:22)
[2025-03-27] MEDS ORDERED: Dexamethasone Sod Phos 10 MG/ML 1ML VIAL ONE (16:22)
[2025-03-27] MEDS ORDERED: Ondansetron HCl 2 MG / ML 2ML Vial ONE (16:22)
[2025-03-27] MEDS ORDERED: ePHEDrine Sulfate 50 MG/ML 1ML Injection IV PRN (16:25)
[2025-03-27] MEDS ORDERED: FentaNYL Citrate 50 MCG/ML 2 ML Injection IV PRN ×2 (16:25)
[2025-03-27] MEDS ORDERED: Albuterol 2.5 MG/3 ML VIAL INH PRN (16:25)
[2025-03-27] MEDS ORDERED: Ondansetron HCl 2 MG / ML 2ML Vial IV PRN (16:30)
[2025-03-27] MEDS ORDERED: HYDROmorphone HCl/Pf 1MG SYR IV PRN ×2 (16:30)
--- NOTE | 2025-03-27 19:42 | NUR ---
SHIFT SUMMARY PT A&OX4. PT ADMITTED DUE TO SEPSIS DUE TO CELLULITIS. PT REPORTS NO CHEST PAIN/SOB BUT PAIN IN L ANKLE. PAIN MANAGED PER EMAR. ORDERED ONE TIME DOSE OF TYLENOL AND ATARAX THIS AM. IV INFILTRATED THIS AM. BRAILLE OPERATOR PUT IN POWERGLIDE. PT GETS IV VANCO ANTIBIOTIC. REPORTED "SIPS WITH CHIPS OK THIS AM" PT HAD I&D PROCEDURE TODAY. GOT REPORT FROM PACU, PUT IN ORDER TO ELEVATE LEG, THAT PT IS 50% WEIGHT BEARING STATUS. LEG IS WRAPPED WITH GAUZE AND TRISTIN WRAP PER CULTURAL CENTRE MANAGER. LEG HAS EDEMA. PT REPORTS "NO NUMBNESS SOME TINGLING AND PAIN." PT IN BED, BED IN LOWEST POSITION, CALL LIGHT IN REACH.
[2025-03-27] MEDS ORDERED: OxyCODONE 5 mg/Acetamin 325 mg TABLET PO PRN (22:25)
--- NOTE | 2025-03-28 02:57 | NUR ---
PRESS CLEANER SUMMARY: NEW ORDER RECEIVED FOR ATARAX 10MG NOW. EFFECTIVE. PT RESTING COMFORTABLY AFTER ATARAX ADMINISTRATION. NO ACUTE EVENTS T/O SHIFT. PT INDEPENDENT IN ROOM. ABLE TO USE FWW TO PIVOT TO BSC. DRESSING TO L ANKLE C/D/I. BED IN LOWEST POSITION. CALL LIGHT IN REACH. CARES ONGOING ORDERED.
[2025-03-28 05:42] LABS: BASOPHILS ABSOLUTE AUTO 0.13 K/mm3 (0.00-0.23); BASOPHILS PERCENT AUTO 1 % (0-2); EOSINOPHILS ABSOLUTE AUTO 0.05 K/mm3 (0.00-0.68); EOSINOPHILS PERCENT AUTO 0 % (0-6); Hematocrit 30.6 % (33.0-51.0); Hemoglobin 10.1 g/dL (11.5-16.0); IMMATURE GRAN ABSOLUTE AUTO 0.67 K/mm3 (0.00-0.10); IMMATURE GRAN PERCENT AUTO 3 % (0-1); LYMPHOCYTES ABSOLUTE AUTO 1.99 K/mm3 (0.84-5.20); LYMPHOCYTES PERCENT AUTO 10 % (21-46); MONOCYTES ABSOLUTE AUTO 1.22 K/mm3 (0.16-1.47); MONOCYTES PERCENT AUTO 6 % (4-13); Mean Corpuscular HGB Conc 33.0 g/dL (31.5-36.5); Mean Corpuscular Volume 84 fL (80-100); NEUTROPHILS ABSOLUTE AUTO 16.56 K/mm3 (1.96-9.15); NEUTROPHILS PERCENT AUTO 80 % (41-73); NRBC ABSOLUTE 0.00 K/mm3 (0.00-0.02); NRBC Auto 0.0 /100 WBC (0.0-0.2); Platelet Count 368 K/mm3 (150-400); RDW Coefficient Variation 16.7 % (11.7-14.2); RDW Standard Deviation 51.3 fL (35.1-46.3)
[2025-03-28 06:01] VITALS: BP 133/73
[2025-03-28 06:05] LABS: Anion Gap 6.0 mmol/L (3-11); Blood Urea Nitrogen 12.0 mg/dL (8-24); CO2, Blood 28.0 mmol/L (21-32); Calcium, Blood 8.4 mg/dL (8.5-10.1); Chloride, Blood 105.0 mmol/L (98-108); Creatinine, Blood 0.66 mg/dL (0.40-1.00); Glucose, Blood 159.0 mg/dL (70-99); Potassium, Blood 4.2 mmol/L (3.5-5.5); Sodium, Blood 135.0 mmol/L (136-145)
[2025-03-28 07:32] VITALS: BP 127/65
--- NOTE | 2025-03-28 09:42 | NUR ---
DR YAO ROUNDING ON PATIENT NOW, PATIENT CLEARLY MAKES NEEDS KNWN, CALL LIGHT WITH IN REACH
[2025-03-28] MEDS ORDERED: DiphenhydrAMINE HCl 50 MG/ML 1ML Vial IV ONE (12:25)
[2025-03-28 15:57] VITALS: BP 131/71
--- NOTE | 2025-03-28 17:15 | NUR ---
NO ACUTE CHANGES, MULTIPLE NEEDS, SHOWERED, MEDICATED FOR PAIN AND ITCHING, VERY MUMBLED SPEECH. HARD TO NDERSTAND AT TIMES, CALL LIGHT WITH IN REACH
[2025-03-28 20:11] VITALS: BP 135/73
[2025-03-29 05:02] LABS: Hematocrit 33.2 % (33.0-51.0); Hemoglobin 10.8 g/dL (11.5-16.0); Mean Corpuscular HGB Conc 32.5 g/dL (31.5-36.5); Mean Corpuscular Volume 85 fL (80-100); NRBC ABSOLUTE 0.02 K/mm3 (0.00-0.02); NRBC Auto 0.1 /100 WBC (0.0-0.2); Platelet Count 437 K/mm3 (150-400); RDW Coefficient Variation 17.0 % (11.7-14.2); RDW Standard Deviation 51.8 fL (35.1-46.3)
[2025-03-29 05:07] VITALS: BP 136/68
[2025-03-29 05:25] LABS: BAND PERCENT MAN 3 % (0-8); BASOPHILS ABSOLUTE MAN 0.20 K/mm3 (0.00-0.23); BASOPHILS PERCENT MAN 1 % (0-2); EOSINOPHILS ABSOLUTE MAN 1.46 K/mm3 (0.00-0.68); EOSINOPHILS PERCENT MAN 7 % (0-6); LYMPHOCYTES ABSOLUTE MAN 4.18 K/mm3 (0.84-5.20); LYMPHOCYTES PERCENT MAN 20 % (21-46); METAMYELOCYTE ABSOLUTE MAN 0.20 K/mm3 (0.00-0.00); METAMYELOCYTE PERCENT MAN 1 % (0-0); MONOCYTES ABSOLUTE MAN 1.25 K/mm3 (0.16-1.47); MONOCYTES PERCENT MAN 6 % (4-13); MYELOCYTE ABSOLUTE MAN 0.83 K/mm3 (0.00-0.00); MYELOCYTE PERCENT MAN 4 % (0-0); NEUTROPHILS ABSOLUTE MAN 12.76 K/mm3 (1.96-9.15); SEG NEUTROPHILS PERCENT MAN 58 % (41-73)
[2025-03-29 06:40] LABS: Anion Gap 6.0 mmol/L (3-11); Blood Urea Nitrogen 12.0 mg/dL (8-24); CO2, Blood 28.0 mmol/L (21-32); Calcium, Blood 8.3 mg/dL (8.5-10.1); Chloride, Blood 106.0 mmol/L (98-108); Creatinine, Blood 0.78 mg/dL (0.40-1.00); Glucose, Blood 145.0 mg/dL (70-99); Potassium, Blood 4.3 mmol/L (3.5-5.5); Sodium, Blood 136.0 mmol/L (136-145)
[2025-03-29 07:48] VITALS: BP 134/75
[2025-03-29 16:32] VITALS: BP 138/83
--- NOTE | 2025-03-29 18:39 | NUR ---
SHIFT SUMMARY PT CONT LEVEL OF CARE. PT NOTED TO BE A&OX4 AND IND TO BSC. PT CONT TO REMAIN 50% NON WT BEARING TO LLE. PT IS S/P L FOOT I&D THAT WAS COMPLETED ON 03/27. PT CONT TO REMAIN IN ISO D/T ESBL IN URINE AND POISON OAK. POISON OAK NOTED TO BE RESOLVING. PT CONT WITH IV ABX.
[2025-03-29 21:19] VITALS: BP 134/77
[2025-03-29] MEDS ORDERED: Polyethylene Glycol 3350 119 GM PO SCH (23:20)
[2025-03-29] MEDS ORDERED: Polyethylene Glycol 3350 17 gm PO SCH (23:50)
[2025-03-30 04:41] VITALS: BP 116/69
[2025-03-30 05:41] LABS: Vancomycin, Trough 17.8 ug/mL (5.0-10.0)
--- NOTE | 2025-03-30 06:33 | NUR ---
Shift Summary Pt stated she has had no BM for 7 days. The career based intervention coordinator doc ordered Miralax daily with the first dose starting last night. Pt c/o L ankle pain, medicated per emar. Dressing on L ankle remained C/D/I t/o shift. Pt slept well t/o most of the shift. Rcving IV ABX as ordered. Pt AOx4, ind to BSC.
[2025-03-30 06:56] LABS: Hematocrit 38.0 % (33.0-51.0); Hemoglobin 12.1 g/dL (11.5-16.0); Mean Corpuscular HGB Conc 31.8 g/dL (31.5-36.5); Mean Corpuscular Volume 86 fL (80-100); NRBC ABSOLUTE 0.00 K/mm3 (0.00-0.02); NRBC Auto 0.0 /100 WBC (0.0-0.2); Platelet Count 539 K/mm3 (150-400); RDW Coefficient Variation 17.6 % (11.7-14.2); RDW Standard Deviation 53.1 fL (35.1-46.3)
[2025-03-30 07:09] LABS: Anion Gap 9.0 mmol/L (3-11); Blood Urea Nitrogen 13.0 mg/dL (8-24); CO2, Blood 26.0 mmol/L (21-32); Calcium, Blood 8.9 mg/dL (8.5-10.1); Chloride, Blood 103.0 mmol/L (98-108); Creatinine, Blood 0.75 mg/dL (0.40-1.00); Glucose, Blood 128.0 mg/dL (70-99); Potassium, Blood 4.3 mmol/L (3.5-5.5); Sodium, Blood 134.0 mmol/L (136-145)
[2025-03-30 07:29] LABS: BAND PERCENT MAN 2 % (0-8); BASOPHILS ABSOLUTE MAN 0.21 K/mm3 (0.00-0.23); BASOPHILS PERCENT MAN 1 % (0-2); EOSINOPHILS ABSOLUTE MAN 1.06 K/mm3 (0.00-0.68); EOSINOPHILS PERCENT MAN 5 % (0-6); LYMPHOCYTES ABSOLUTE MAN 5.12 K/mm3 (0.84-5.20); LYMPHOCYTES PERCENT MAN 24 % (21-46); METAMYELOCYTE ABSOLUTE MAN 0.64 K/mm3 (0.00-0.00); METAMYELOCYTE PERCENT MAN 3 % (0-0); MONOCYTES ABSOLUTE MAN 1.92 K/mm3 (0.16-1.47); MONOCYTES PERCENT MAN 9 % (4-13); MYELOCYTE ABSOLUTE MAN 0.42 K/mm3 (0.00-0.00); MYELOCYTE PERCENT MAN 2 % (0-0); NEUTROPHILS ABSOLUTE MAN 11.95 K/mm3 (1.96-9.15); SEG NEUTROPHILS PERCENT MAN 54 % (41-73)
[2025-03-30 07:54] VITALS: BP 116/76
[2025-03-30] MEDS ORDERED: CeFAZolin Sodium 2,000 MG in NS 100 ML IV SCH (08:00)
--- NOTE | 2025-03-30 14:13 | NUR ---
THIS HOSPICE EXECUTIVE DIRECTOR GOT A CALL FROM A NURSE AT [facility] IN [facility] TO THIS PATIENTS MEDICATIONS SHE HAS BEEN TAKING WHILE ADMITTED HERE AT [facility]. THE CONCERN WAS WHETHER OR NOT THIS PATIENT WAS TAKING THEIR PRESCRIBED HOME MEDICATION WHILE HERE. THIS HOSPICE EXECUTIVE DIRECTOR WAS NOTIFIED THAT HE WAS SPEAKING TO A NURSE FROM THE HEPATOLOGY CLINIC IN [place]. THIS HOSPICE EXECUTIVE DIRECTOR VERBALIZED THAT THIS PATIENT HAS BEEN RECIEVING URSODIOL WHILE ADMITTED HERE AT [facility]. DR. AVILA NOTIFIED OF THIS CALL. WILL CONTINUE TO MONITOR THE PATIENT.
[2025-03-30 16:29] VITALS: BP 107/69
--- NOTE | 2025-03-30 17:49 | NUR ---
"Spiritual Care Consult | Ordered by Matt Medel MD Pt. is awake in bed but requested this chief operator lock tender return at another time. She asked for prayer. So this chief operator lock tender prayed from the the doorway. The Pt. verbalized gratitude and requested a chief operator lock tender visit her on Wednesday."
--- NOTE | 2025-03-30 18:23 | NUR ---
SHIFT SUMMARY: PATIENT A+O X2 THROUGHOUT THIS DAY. PATIENT TREATED FOR PAIN DURING THIS DAY, CHECK EMAR FOR DETAILS. PATIENT CALLED [facility] EARLIER DURING THIS DAY, REFER TO NOTES, TREATING THIS PATIENT FOR INFECTION AND POISON OAK. NO NEW ACUTE CHANGES DURING THIS SHIFT, PLAN OF CARE ONGOING AT THIS TIME.
[2025-03-30 19:43] VITALS: BP 114/63
[2025-03-31 05:09] LABS: Hematocrit 36.0 % (33.0-51.0); Hemoglobin 11.8 g/dL (11.5-16.0); Mean Corpuscular HGB Conc 32.8 g/dL (31.5-36.5); Mean Corpuscular Volume 85 fL (80-100); NRBC ABSOLUTE 0.00 K/mm3 (0.00-0.02); NRBC Auto 0.0 /100 WBC (0.0-0.2); Platelet Count 538 K/mm3 (150-400); RDW Coefficient Variation 17.8 % (11.7-14.2); RDW Standard Deviation 53.2 fL (35.1-46.3)
[2025-03-31 05:35] LABS: Alanine Aminotransfer (ALT/SGP 28.0 U/L (12-78); Albumin, Blood 2.9 g/dL (3.4-5.0); Albumin/Globulin Ratio 0.6 (0.8-1.8); Anion Gap 8.0 mmol/L (3-11); Aspartate Aminotrans (AST/SGOT 12.0 U/L (12-37); Bilirubin, Total 0.4 mg/dL (0.1-1.0); Blood Urea Nitrogen 18.0 mg/dL (8-24); CO2, Blood 28.0 mmol/L (21-32); Calcium, Blood 8.4 mg/dL (8.5-10.1); Chloride, Blood 101.0 mmol/L (98-108); Creatinine, Blood 0.86 mg/dL (0.40-1.00); Globulin, Blood 4.5 g/dL (2.2-4.0); Glucose, Blood 146.0 mg/dL (70-99); Potassium, Blood 4.5 mmol/L (3.5-5.5); Sodium, Blood 132.0 mmol/L (136-145); Total Protein, Blood 7.4 g/dL (6.4-8.2)
--- NOTE | 2025-03-31 05:51 | NUR ---
Shift Summary Pt slept t/o most of the night. Medicated for pain per EMAR, gave first dose of Toradol this PM. No acute changes. Dressing is C/D/I and is due for change today. No c/o of nausea, IND to BSC, AOx4
[2025-03-31 06:03] LABS: BAND PERCENT MAN 1 % (0-8); BASOPHILS ABSOLUTE MAN 0.00 K/mm3 (0.00-0.23); BASOPHILS PERCENT MAN 0 % (0-2); EOSINOPHILS ABSOLUTE MAN 1.03 K/mm3 (0.00-0.68); EOSINOPHILS PERCENT MAN 5 % (0-6); LYMPHOCYTES ABSOLUTE MAN 5.39 K/mm3 (0.84-5.20); LYMPHOCYTES PERCENT MAN 26 % (21-46); MONOCYTES ABSOLUTE MAN 1.65 K/mm3 (0.16-1.47); MONOCYTES PERCENT MAN 8 % (4-13); MYELOCYTE ABSOLUTE MAN 0.62 K/mm3 (0.00-0.00); MYELOCYTE PERCENT MAN 3 % (0-0); NEUTROPHILS ABSOLUTE MAN 12.02 K/mm3 (1.96-9.15); SEG NEUTROPHILS PERCENT MAN 57 % (41-73)
[2025-03-31 06:17] VITALS: BP 116/71
[2025-03-31 08:44] VITALS: BP 102/52
[2025-03-31] MEDS ORDERED: Magnesium Hydroxide Conc 10 ML UDC PO PRN (09:40)
[2025-03-31 15:57] VITALS: BP 140/119
--- NOTE | 2025-03-31 18:42 | NUR ---
SHIFT SUMMARY PT A&OX4, VSS, RA. PAIN MANAGED WITH PRN OXYCODONE AND TOREDOL. IV ABX CONTINUED. WOUND DRESSING CHANGED TODAY PER ORDER, TOLERATED WELL, PHOTO IN CHART. CALL LIGHT IN REACH
[2025-03-31 20:34] VITALS: BP 113/56
[2025-04-01 07:04] LABS: Hematocrit 33.6 % (33.0-51.0); Hemoglobin 10.7 g/dL (11.5-16.0); Mean Corpuscular HGB Conc 31.8 g/dL (31.5-36.5); Mean Corpuscular Volume 86 fL (80-100); NRBC ABSOLUTE 0.00 K/mm3 (0.00-0.02); NRBC Auto 0.0 /100 WBC (0.0-0.2); Platelet Count 476 K/mm3 (150-400); RDW Coefficient Variation 17.9 % (11.7-14.2); RDW Standard Deviation 54.9 fL (35.1-46.3)
[2025-04-01 07:24] LABS: BAND PERCENT MAN 3 % (0-8); BASOPHILS ABSOLUTE MAN 0.36 K/mm3 (0.00-0.23); BASOPHILS PERCENT MAN 2 % (0-2); EOSINOPHILS ABSOLUTE MAN 0.73 K/mm3 (0.00-0.68); EOSINOPHILS PERCENT MAN 4 % (0-6); LYMPHOCYTES ABSOLUTE MAN 4.97 K/mm3 (0.84-5.20); LYMPHOCYTES PERCENT MAN 27 % (21-46); METAMYELOCYTE ABSOLUTE MAN 0.18 K/mm3 (0.00-0.00); METAMYELOCYTE PERCENT MAN 1 % (0-0); MONOCYTES ABSOLUTE MAN 0.92 K/mm3 (0.16-1.47); MONOCYTES PERCENT MAN 5 % (4-13); NEUTROPHILS ABSOLUTE MAN 11.23 K/mm3 (1.96-9.15); SEG NEUTROPHILS PERCENT MAN 58 % (41-73)
[2025-04-01 07:31] LABS: Alanine Aminotransfer (ALT/SGP 19.0 U/L (12-78); Albumin, Blood 2.7 g/dL (3.4-5.0); Albumin/Globulin Ratio 0.6 (0.8-1.8); Anion Gap 2.0 mmol/L (3-11); Aspartate Aminotrans (AST/SGOT 14.0 U/L (12-37); Bilirubin, Total 0.4 mg/dL (0.1-1.0); Blood Urea Nitrogen 19.0 mg/dL (8-24); CO2, Blood 33.0 mmol/L (21-32); Calcium, Blood 8.5 mg/dL (8.5-10.1); Chloride, Blood 104.0 mmol/L (98-108); Creatinine, Blood 0.78 mg/dL (0.40-1.00); Globulin, Blood 4.3 g/dL (2.2-4.0); Glucose, Blood 103.0 mg/dL (70-99); Potassium, Blood 4.6 mmol/L (3.5-5.5); Sodium, Blood 134.0 mmol/L (136-145); Total Protein, Blood 7.0 g/dL (6.4-8.2)
--- NOTE | 2025-04-01 07:35 | NUR ---
SHIFT SUMMARY AT START OF SHIFT, PT IN BED WATCHING TV. SIG. OTHER AT BEDSIDE. PT SLEPT WELL THIS EVENING. WOKE FOR MEDICATION PASSES. PT WAS PLEASANT AND COOPERATIVE WITH HER CARE. WITH 0600 MEDICATION PASSES, PT STATED SHE WAS FEELING BAD TODAY. THAT HER STOMACH WAS FEELING SICK TODAY. PASSED ON TO DAY SHIFT.
[2025-04-01 08:33] VITALS: BP 112/64
[2025-04-01] MEDS ORDERED: Miconazole Nitrate 2% 85 GM PWD TOP SCH (09:00)
[2025-04-01 15:10] VITALS: BP 127/63
--- NOTE | 2025-04-01 17:39 | NUR ---
shift summary pt cont level of care with no acute changes noted this shift. pt cont to remain a&ox 4 and ind to bsc. pt did recieve a ortho shoe this shift. pt has been medicated per emar for pain. wbc cont to be elevated but noted to be trending down. plan is for possible dc tomorrow.
[2025-04-01 20:09] VITALS: BP 128/64
--- NOTE | 2025-04-02 05:46 | NUR ---
SHIFT SUMMARY PATIENT IS ALERT AND ORIENTED. PATIENT HAS HAD NO ACUTE EVENTS THIS SHIFT. PATIENT HAS BEEN IND THIS SHIFT. PATIENT HAS BEEN MEDICATED FOR PAIN THIS SHIFT. PATIENT IS A POSSIBLE DC TODAY. PATIENT HAS HAD NO COMPLAINTS OF NAUSEA, VOMITTING OR SOB THIS SHIFT. VITAL SIGNS REVIEWED. BED IN LOCKED AND LOWEST POSITION.
[2025-04-02 05:50] VITALS: BP 121/56
[2025-04-02 07:07] LABS: Hematocrit 35.1 % (33.0-51.0); Hemoglobin 11.1 g/dL (11.5-16.0); Mean Corpuscular HGB Conc 31.6 g/dL (31.5-36.5); Mean Corpuscular Volume 88 fL (80-100); NRBC ABSOLUTE 0.00 K/mm3 (0.00-0.02); NRBC Auto 0.0 /100 WBC (0.0-0.2); Platelet Count 474 K/mm3 (150-400); RDW Coefficient Variation 18.1 % (11.7-14.2); RDW Standard Deviation 56.7 fL (35.1-46.3)
[2025-04-02 07:26] VITALS: BP 139/76
[2025-04-02 07:32] LABS: BASOPHILS ABSOLUTE MAN 0.00 K/mm3 (0.00-0.23); BASOPHILS PERCENT MAN 0 % (0-2); EOSINOPHILS ABSOLUTE MAN 0.68 K/mm3 (0.00-0.68); EOSINOPHILS PERCENT MAN 4 % (0-6); LYMPHOCYTES ABSOLUTE MAN 3.26 K/mm3 (0.84-5.20); LYMPHOCYTES PERCENT MAN 19 % (21-46); MONOCYTES ABSOLUTE MAN 1.71 K/mm3 (0.16-1.47); MONOCYTES PERCENT MAN 10 % (4-13); MYELOCYTE ABSOLUTE MAN 0.17 K/mm3 (0.00-0.00); MYELOCYTE PERCENT MAN 1 % (0-0); NEUTROPHILS ABSOLUTE MAN 11.34 K/mm3 (1.96-9.15); SEG NEUTROPHILS PERCENT MAN 66 % (41-73)
[2025-04-02 07:39] LABS: Alanine Aminotransfer (ALT/SGP 18 U/L (12-78); Albumin, Blood 3.0 g/dL (3.4-5.0); Albumin/Globulin Ratio 0.7 (0.8-1.8); Anion Gap 7 mmol/L (3-11); Aspartate Aminotrans (AST/SGOT 12 U/L (12-37); Bilirubin, Total 0.4 mg/dL (0.1-1.0); Blood Urea Nitrogen 20 mg/dL (8-24); C-REACTIVE PROTEIN, EXT RANGE <0.290 mg/dL (0.000-0.300); CO2, Blood 27 mmol/L (21-32); Calcium, Blood 8.8 mg/dL (8.5-10.1); Chloride, Blood 105 mmol/L (98-108); Creatinine, Blood 0.76 mg/dL (0.40-1.00); Globulin, Blood 4.4 g/dL (2.2-4.0); Glucose, Blood 133 mg/dL (70-99); Potassium, Blood 4.4 mmol/L (3.5-5.5); Sodium, Blood 135 mmol/L (136-145); Total Protein, Blood 7.4 g/dL (6.4-8.2)
[2025-04-02] MEDS ORDERED: CEPH500 PO (16:21)
[2025-04-02] MEDS ORDERED: OXAYDO5 M1 PO (16:22)
[2025-04-02] MEDS ORDERED: VISBIOME 112.51 EACH PO (16:22)
--- NOTE | 2025-04-02 19:32 | NUR ---
DISCHARGE SUMMARY CLIENT OAX4. MEDICATION COMPLIANT. SIGNIFICANT OTHER IN ROOM DURING DRESSING CHANGE AND EDUCATED ON HOW PACK THE WOUND WITH IODOFORM. C/O OF PAIN, MEDICATED PER EMAR WITH SUCCESS. DISCHARGE ORDERS RECEIVED. POWERGLIDE D/C'D. MEDICATION LIST FAXED TO [facility]. HARD COPT SCRIPT GIVEN WITH DISCHARGE PACKET. DISCHARGE PACKET WAS EXPLAINED TO CLIENT. CLIENT LEFT THE UNIT VIA WHEELCHAIR.
== END 2025-04-02 17:51 | disposition home or self-care (01) | DRG 872 ==
LOC: ER 00:28 → MEDS 04:27
PROVIDERS: Internal Medicine; Student in an Organized Health Care Education/Training Program; ADMIT Student in an Organized Health Care Education/Training Program
PROC: 3E03329 Introduction of Other Anti-infective into Peripheral Vein, Percutaneous Approach (ICD-10-PCS; principal; 2025-03-24)
PROC: 0J9R0ZZ Drainage of Left Foot Subcutaneous Tissue and Fascia, Open Approach (ICD-10-PCS; 2025-03-27)
DX: A40.0 Sepsis due to streptococcus, group A (principal); L03.116 Cellulitis of left lower limb; E87.21 Acute metabolic acidosis; E87.1 Hypo-osmolality and hyponatremia; L02.416 Cutaneous abscess of left lower limb; R65.20 Severe sepsis without septic shock; E03.9 Hypothyroidism, unspecified; M79.7 Fibromyalgia; M25.562 Pain in left knee; G89.29 Other chronic pain; L23.7 Allergic contact dermatitis due to plants, except food; R74.8 Abnormal levels of other serum enzymes; R74.01 Elevation of levels of liver transaminase levels; J45.909 Unspecified asthma, uncomplicated; F15.90 Other stimulant use, unspecified, uncomplicated; F11.90 Opioid use, unspecified, uncomplicated; K74.69 Other cirrhosis of liver; E87.6 Hypokalemia; E80.4 Gilbert syndrome; B96.89 Other specified bacterial agents as the cause of diseases classified elsewhere; R51.9 Headache, unspecified; K59.00 Constipation, unspecified; M71.072 Abscess of bursa, left ankle and foot; E06.3 Autoimmune thyroiditis; Z88.5 Allergy status to narcotic agent; Z88.0 Allergy status to penicillin; Z88.8 Allergy status to other drugs, medicaments and biological substances; Z88.2 Allergy status to sulfonamides; Z79.899 Other long term (current) drug therapy; Z79.51 Long term (current) use of inhaled steroids; Z79.890 Hormone replacement therapy; Z79.1 Long term (current) use of non-steroidal anti-inflammatories (NSAID); Z90.49 Acquired absence of other specified parts of digestive tract; Z98.890 Other specified postprocedural states; Z98.1 Arthrodesis status; Z90.710 Acquired absence of both cervix and uterus; Z90.89 Acquired absence of other organs; Z87.19 Personal history of other diseases of the digestive system; Z86.14 Personal history of Methicillin resistant Staphylococcus aureus infection
CPT/HCPCS: 36415; 73701; 76705; 76882; 80048; 80053; 80074; 80202; 80320; 81003; 82247; 82248; 83605; 83735; 85025; 85610; 85651; 86140; 87040; 87070; 87071; 87075; 87147; 87205; 94760; 94762; 96361; 96374-59; 97116; 97161; 97530; 99284-25; A9270; C1751; G0480; J0690; J1100; J1171; J1200; J1650; J1885; J2003; J2250; J2371; J2405; J2704; J3010; J3373; J3420; J7030; J7050; J7120; Q9967

== ENCOUNTER 2025-05-18 15:49 | Emergency (ER) | payer OTHER ==
[~2025-05-18] VITALS: Ht 157.5 cm; Wt 54.4 kg
[~2025-05-18 15:49] MED LIST changes: +LEVO T PO; +OXAYDO5 M1 PO; +URSODIOL500 MG PO; +VISBIOME 112.51 EACH PO
[2025-05-18 15:57] VITALS: BP 152/81
== END 2025-05-18 18:11 | disposition home or self-care (01) ==
LOC: ER 15:49
DX: F22 Delusional disorders (principal); S80.812A Abrasion, left lower leg, initial encounter; S80.811A Abrasion, right lower leg, initial encounter; F45.8 Other somatoform disorders; E03.9 Hypothyroidism, unspecified; X58.XXXA Exposure to other specified factors, initial encounter; Z79.899 Other long term (current) drug therapy; Z88.1 Allergy status to other antibiotic agents; Z88.0 Allergy status to penicillin; Z88.2 Allergy status to sulfonamides; Z88.5 Allergy status to narcotic agent
CPT/HCPCS: 99282

== ENCOUNTER 2025-05-27 23:50 | Emergency (ER) | payer OTHER ==
[~2025-05-27] VITALS: Ht 162.6 cm; Wt 45.4 kg
[2025-05-28 00:43] LABS: BASOPHILS ABSOLUTE AUTO 0.08 K/mm3 (0.00-0.23); BASOPHILS PERCENT AUTO 1 % (0-2); EOSINOPHILS ABSOLUTE AUTO 0.09 K/mm3 (0.00-0.68); EOSINOPHILS PERCENT AUTO 1 % (0-6); Hematocrit 33.8 % (33.0-51.0); Hemoglobin 11.2 g/dL (11.5-16.0); IMMATURE GRAN ABSOLUTE AUTO 0.03 K/mm3 (0.00-0.10); IMMATURE GRAN PERCENT AUTO 0 % (0-1); LYMPHOCYTES ABSOLUTE AUTO 2.49 K/mm3 (0.84-5.20); LYMPHOCYTES PERCENT AUTO 25 % (21-46); MONOCYTES ABSOLUTE AUTO 0.93 K/mm3 (0.16-1.47); MONOCYTES PERCENT AUTO 9 % (4-13); Mean Corpuscular HGB Conc 33.1 g/dL (31.5-36.5); Mean Corpuscular Volume 84 fL (80-100); NEUTROPHILS ABSOLUTE AUTO 6.48 K/mm3 (1.96-9.15); NEUTROPHILS PERCENT AUTO 64 % (41-73); NRBC ABSOLUTE 0.00 K/mm3 (0.00-0.02); NRBC Auto 0.0 /100 WBC (0.0-0.2); Platelet Count 407 K/mm3 (150-400); RDW Coefficient Variation 15.7 % (11.7-14.2); RDW Standard Deviation 47.2 fL (35.1-46.3)
[2025-05-28 01:31] LABS: Ethanol (Alcohol), Blood, Med <3 mg/dL
[2025-05-28 01:36] LABS: Thyroid Stimulating Hormone 150.000 uIU/mL (0.360-4.800)
[2025-05-28 01:37] LABS: Alanine Aminotransfer (ALT/SGP 90 U/L (12-78); Albumin, Blood 3.9 g/dL (3.4-5.0); Albumin/Globulin Ratio 1.3 (0.8-1.8); Anion Gap 11 mmol/L (3-11); Aspartate Aminotrans (AST/SGOT 140 U/L (12-37); Bilirubin, Total 1.8 mg/dL (0.1-1.0); Blood Urea Nitrogen 12 mg/dL (8-24); CO2, Blood 26 mmol/L (21-32); Calcium, Blood 8.9 mg/dL (8.5-10.1); Chloride, Blood 101 mmol/L (98-108); Creatinine, Blood 0.97 mg/dL (0.40-1.00); Globulin, Blood 2.9 g/dL (2.2-4.0); Glucose, Blood 122 mg/dL (70-99); Potassium, Blood 2.5 mmol/L (3.5-5.5); Sodium, Blood 135 mmol/L (136-145); Total Protein, Blood 6.8 g/dL (6.4-8.2)
[2025-05-28 01:56] LABS: Source, Urine Clean Catch
[2025-05-28 02:00] LABS: Magnesium, Blood 2.2 mg/dL (1.6-2.4)
[2025-05-28] MEDS ORDERED: Magnesium Sulf 2 GM/Water 50ML 50 ML IV ONE (02:15)
[2025-05-28 02:20] LABS: Bilirubin, Urine Neg (Neg); Color, Urine Yellow (P-Yellow); Glucose Qualitative, Urine Neg (Neg); Ketones, Urine Neg (Neg); Leukocyte Esterase, Urine 1+ (Neg); Protein, Urine 2+ (Neg); Specific Gravity, Urine 1.025 (1.003-1.022); Urobilinogen, Urine 3+ (Normal)
[2025-05-28 02:22] LABS: Red Blood Cells, Urine Not Seen /hpf (0-2)
[2025-05-28 02:24] LABS: U Amphetamine Screen DETECTED; U Methamphetamine Screen DETECTED
[2025-05-28 02:25] LABS: U Barbituate Screen Not Detected; U Benzodiazapine Screen Not Detected; U Buprenorphine Screen Not Detected; U Cannabinoids Screen Not Detected; U Cocaine Screen Not Detected; U Methadone Screen Not Detected; U Opiates Screen Not Detected; U Oxycodone Screen Not Detected; U Phencyclidine Screen Not Detected
[2025-05-28] MEDS ORDERED: CEPH500 PO (02:43)
[2025-05-28] MEDS ORDERED: POTA10T PO (02:43)
[2025-05-28 04:30] VITALS: BP 126/74
== END 2025-05-28 07:08 | disposition home or self-care (01) ==
LOC: ER 23:50
PROVIDERS: Emergency Medicine
DX: R44.1 Visual hallucinations (principal); E87.6 Hypokalemia; R74.01 Elevation of levels of liver transaminase levels; E72.20 Disorder of urea cycle metabolism, unspecified; E03.9 Hypothyroidism, unspecified; K74.60 Unspecified cirrhosis of liver; Z88.1 Allergy status to other antibiotic agents; Z88.5 Allergy status to narcotic agent; Z88.0 Allergy status to penicillin; Z88.2 Allergy status to sulfonamides; Z79.890 Hormone replacement therapy; Z79.899 Other long term (current) drug therapy
CPT/HCPCS: 80053; 80320; 81001; 82140; 83735; 84443; 85025; 93005; 93010; 96365; 96366; 96368; 99285-25; A9270; J3475; J3480; J7050

== ENCOUNTER 2025-05-29 02:01 | Inpatient (IN) | payer OTHER ==
[~2025-05-29] VITALS: Ht 157.5 cm; Wt 59.3 kg
[~2025-05-29 02:01] MED LIST changes: +POTA10T PO
[2025-05-29] MEDS ORDERED: Ziprasidone Mesylate 20 MG / Vial IM ONE ×2 (02:25→11:45)
[2025-05-29 02:49] LABS: BASOPHILS ABSOLUTE AUTO 0.10 K/mm3 (0.00-0.23); BASOPHILS PERCENT AUTO 1 % (0-2); EOSINOPHILS ABSOLUTE AUTO 0.12 K/mm3 (0.00-0.68); EOSINOPHILS PERCENT AUTO 1 % (0-6); Hematocrit 34.2 % (33.0-51.0); Hemoglobin 11.3 g/dL (11.5-16.0); IMMATURE GRAN ABSOLUTE AUTO 0.02 K/mm3 (0.00-0.10); IMMATURE GRAN PERCENT AUTO 0 % (0-1); LYMPHOCYTES ABSOLUTE AUTO 2.03 K/mm3 (0.84-5.20); LYMPHOCYTES PERCENT AUTO 19 % (21-46); MONOCYTES ABSOLUTE AUTO 0.99 K/mm3 (0.16-1.47); MONOCYTES PERCENT AUTO 9 % (4-13); Mean Corpuscular HGB Conc 33.0 g/dL (31.5-36.5); Mean Corpuscular Volume 84 fL (80-100); NEUTROPHILS ABSOLUTE AUTO 7.50 K/mm3 (1.96-9.15); NEUTROPHILS PERCENT AUTO 70 % (41-73); NRBC ABSOLUTE 0.00 K/mm3 (0.00-0.02); NRBC Auto 0.0 /100 WBC (0.0-0.2); Platelet Count 429 K/mm3 (150-400); RDW Coefficient Variation 16.0 % (11.7-14.2); RDW Standard Deviation 48.7 fL (35.1-46.3)
[2025-05-29 03:08] LABS: Ethanol (Alcohol), Blood, Med <3 mg/dL; Magnesium, Blood 2.2 mg/dL (1.6-2.4); Salicylate <1.7 mg/dL (2.8-20.0)
[2025-05-29 03:10] LABS: Alanine Aminotransfer (ALT/SGP 100 U/L (12-78); Albumin, Blood 3.8 g/dL (3.4-5.0); Albumin/Globulin Ratio 1.3 (0.8-1.8); Anion Gap 10 mmol/L (3-11); Aspartate Aminotrans (AST/SGOT 141 U/L (12-37); Bilirubin, Total 1.3 mg/dL (0.1-1.0); Blood Urea Nitrogen 11 mg/dL (8-24); CO2, Blood 24 mmol/L (21-32); Calcium, Blood 8.8 mg/dL (8.5-10.1); Chloride, Blood 105 mmol/L (98-108); Creatinine, Blood 1.14 mg/dL (0.40-1.00); Globulin, Blood 2.9 g/dL (2.2-4.0); Glucose, Blood 96 mg/dL (70-99); Potassium, Blood 3.4 mmol/L (3.5-5.5); Sodium, Blood 136 mmol/L (136-145); Total Protein, Blood 6.7 g/dL (6.4-8.2)
[2025-05-29 03:11] LABS: Acetaminophen, Random <2.0 ug/mL (10.0-30.0)
[2025-05-29 18:53] VITALS: BP 150/82
[2025-05-29 19:54] VITALS: BP 134/73
[2025-05-29] MEDS ORDERED: Nitrofurantoin/Nitrofuran Mac 100 MG Cap PO SCH ×2 (21:00→22:33)
[2025-05-29] MEDS ORDERED: CefTRIAXone Sodium 1,000 MG in NS 100 ML IV ONE (21:10)
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
--- NOTE | 2025-05-29 22:50 | NUR ---
PT HAVING INCREASED HALLUCINATIONS YELLING AT STAFF AND TELLING NURSE TO "FUCK OFF" AND REFUSING ANY TYPE OF CARE. SHE FIRST STATED THAT SHE WOULD TAKE A IV ANTIBIOTIC THEN AFTER OBTAINING A ORDER SHE STATED THAT SHE WONT ALLOW ANYONE TO TRY TO PUT A IV IN HER. I CALLED MD AGAIN DUE TO HER HALLUCINATIONS AND YELLING AND BEING NONCOMPLIANT WITH STAFF AND HE ORDERED TO GIVE HER IM ZYPREXA. IM ZYPREXA WAS GIVEN AND SHE CONTINUED TO REFUSE TO LET THE STAFF DO ANY CARE AND SHE REFUSES TO TAKE THE MACROBID.
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
[2025-05-30 05:06] VITALS: BP 181/81
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
[2025-05-30 06:27] LABS: BASOPHILS ABSOLUTE AUTO 0.09 K/mm3 (0.00-0.23); BASOPHILS PERCENT AUTO 1 % (0-2); EOSINOPHILS ABSOLUTE AUTO 0.21 K/mm3 (0.00-0.68); EOSINOPHILS PERCENT AUTO 3 % (0-6); Hematocrit 36.0 % (33.0-51.0); Hemoglobin 11.7 g/dL (11.5-16.0); IMMATURE GRAN ABSOLUTE AUTO 0.03 K/mm3 (0.00-0.10); IMMATURE GRAN PERCENT AUTO 0 % (0-1); LYMPHOCYTES ABSOLUTE AUTO 2.85 K/mm3 (0.84-5.20); LYMPHOCYTES PERCENT AUTO 38 % (21-46); MONOCYTES ABSOLUTE AUTO 0.71 K/mm3 (0.16-1.47); MONOCYTES PERCENT AUTO 10 % (4-13); Mean Corpuscular HGB Conc 32.5 g/dL (31.5-36.5); Mean Corpuscular Volume 85 fL (80-100); NEUTROPHILS ABSOLUTE AUTO 3.57 K/mm3 (1.96-9.15); NEUTROPHILS PERCENT AUTO 48 % (41-73); NRBC ABSOLUTE 0.00 K/mm3 (0.00-0.02); NRBC Auto 0.0 /100 WBC (0.0-0.2); RDW Coefficient Variation 17.0 % (11.7-14.2); RDW Standard Deviation 52.2 fL (35.1-46.3)
[2025-05-30 06:33] LABS: Platelet Count 381 K/mm3 (150-400)
[2025-05-30 06:42] LABS: Alanine Aminotransfer (ALT/SGP 81.0 U/L (12-78); Albumin, Blood 3.2 g/dL (3.4-5.0); Albumin/Globulin Ratio 1.1 (0.8-1.8); Anion Gap 8.0 mmol/L (3-11); Aspartate Aminotrans (AST/SGOT 86.0 U/L (12-37); Bilirubin, Total 1.1 mg/dL (0.1-1.0); Blood Urea Nitrogen 9.0 mg/dL (8-24); CO2, Blood 27.0 mmol/L (21-32); Calcium, Blood 8.5 mg/dL (8.5-10.1); Chloride, Blood 107.0 mmol/L (98-108); Creatinine, Blood 0.92 mg/dL (0.40-1.00); Globulin, Blood 2.8 g/dL (2.2-4.0); Glucose, Blood 85.0 mg/dL (70-99); Potassium, Blood 3.5 mmol/L (3.5-5.5); Sodium, Blood 138.0 mmol/L (136-145); Total Protein, Blood 6.0 g/dL (6.4-8.2)
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
[2025-05-30 10:13] VITALS: BP 162/65
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
[2025-05-30] MEDS ORDERED: Albuterol HFA200 ACT/6.7 GM INH INH PRN (10:55)
--- NOTE | 2025-05-30 12:50 | NUR ---
Patient was awoken by student nurse again, lunch tray provided, meds offered, declined. Agressively argumentative now, demanding warm blankets, one second later screaming 20 minutes. remind patience for someone able to grab some, unwilling to wait, screaming "NOW!!! BITCH!" RN able to bring in warm blankets then shes resting now.
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
[2025-05-30 15:31] VITALS: BP 157/77
--- NOTE | 2025-05-30 16:18 | NUR ---
SHIFT SUMMARY PATIENT HAS SLEPT MOST OF THE DAY AND HAS NOT WANTED MOST CARE THAT WAS PROVIDED. TRIED TO PASS MEDICATION, EDUCATED PATIENT AND SHOWED THEM THE PACKAGING, NAME, AND THE PATIENT STATED THAT WE WERE GIVING HER WRONG MEDICATIONS. CLAIMS THAT THE STAFF ARE "REFUSING TO GIVE ME MY MEALS." PLATE OF FOOD LOCATED NEXT TO PATIENT. LIGHT WITHIN REACH, SITTER IN ROOM, NO DISTRESS NOTED.
--- NOTE | 2025-05-30 17:11 | NUR ---
THIS BEAD PREPARER HAS REVIEWED AND AGREES WITH ALL NOTES AND ASSESSMENTS BY CHON TONY.
--- NOTE | 2025-05-30 18:07 | NUR ---
EVENT PATIENT BEGAN FIDGETING WITH THINGS IN THE ROOM, AND SAYING MEAT WAS EVERYWHERE, AND THAT "THEY WERE COMING FOR HER."PATIENT THEN STARTED YELLING AND FLIUPPING STAFF OFF. PATIENT GIVEN MEDICATIONS, REFUSED MEALS, REFUSED ORAL MEDICATIONS. IM GIVEN PER EMAR, WILL CONTIUE TO MONITOR.
[2025-05-30 19:24] VITALS: BP 127/68
[2025-05-30] MEDS ORDERED: LORazepam 2 MG/ML 1ML Injection IV ONE ×2 (20:35→21:00)
[2025-05-30] MEDS ORDERED: URSODIOL PO SCH (21:00)
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
--- NOTE | 2025-05-31 00:15 | NUR ---
05/30/252044 PATIENT WAS PLACED ON A 2MD HOLD BY THE RESIDENT DR. LARA DUE TO PT TRYING TO LEAVE, EXTREME AGGITATION, TRYING TO THROW LARGE GARBAGE CAN AT STAFF. SECURITY HAD BEEN CALLED TO ASSIST. PT WAS MEDICATED PER ORDERS. 05/31/254 DR BILL HAD CALLED THE PT NURSE TO SAY TAKE HER OFF THE HOLD. THIS WRITTER CALLED TO VERIFY DR HUBBARD. PT IS NOT GOING TO BE ON A HOLD AT THIS TIME. IF PATIENT TRIES TO LEAVE, WE ARE TO PLACE THE PATIENT ON A DRUG AND ETOH HOLD WHICH IS GOOD THROUGH 48 HOURS OF ADMIT.
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
[2025-05-31 05:57] VITALS: BP 145/77
[2025-05-31 06:55] LABS: Alanine Aminotransfer (ALT/SGP 69.0 U/L (12-78); Albumin, Blood 3.2 g/dL (3.4-5.0); Albumin/Globulin Ratio 1.1 (0.8-1.8); Anion Gap 8.0 mmol/L (3-11); Aspartate Aminotrans (AST/SGOT 51.0 U/L (12-37); Bilirubin, Total 0.7 mg/dL (0.1-1.0); Blood Urea Nitrogen 12.0 mg/dL (8-24); CO2, Blood 27.0 mmol/L (21-32); Calcium, Blood 8.8 mg/dL (8.5-10.1); Chloride, Blood 105.0 mmol/L (98-108); Creatinine, Blood 0.86 mg/dL (0.40-1.00); Globulin, Blood 3.0 g/dL (2.2-4.0); Glucose, Blood 102.0 mg/dL (70-99); Potassium, Blood 3.7 mmol/L (3.5-5.5); Sodium, Blood 136.0 mmol/L (136-145); Thyroid Stimulating Hormone 161.0 uIU/mL (0.360-4.800); Total Protein, Blood 6.2 g/dL (6.4-8.2)
[2025-05-31 07:34] VITALS: BP 165/79
--- NOTE | 2025-05-31 13:06 | NUR ---
SHIFT SUMMARY PT SLEEPING DURING SHIFT REPORT. PER NOC SHIFT RN, PT WAS MEDICATED FOR IRATE BEHAVIOR. PT HAS CONTINUED TO REST QUIETLY TO PRESENT. VSS; SEE CHART. DR CARTWRIGHT, AND DR AVILA BOTH IN TO SEE PT. NO NEW ORDERS TO PRESENT. PER REPORT, PT REFUSING MEDICATIONS AND MEALS, THREATENING TO THROW HER FOOD. PT JUST NOW AWAKE, REQUESTING OATMEAL. USED CALL LT APPROPRIATELY. WILL MONITOR.
[2025-05-31 16:10] VITALS: BP 153/84
--- NOTE | 2025-05-31 18:17 | NUR ---
DR AVILA BY TO CHECK ON PT AGAIN THIS AFTERNOON. PT AWAKE BRIEFLY FOR VITALS AND THEN DEMANDING WHEN SHE WAS LEAVING. TELEPHONE STERILIZER ABLE TO CALM PT WHO THEN GOT BACK IN BED AND WENT BACK TO SLEEP. PT RECENTLY WOKE INCONTINENT OF URINE AND WENT TO THE SHOWER. PAPER SCRUBS GIVEN PER PT REQUEST. PT NOW SITTING UP IN BED EATING DINNER.
[2025-05-31 19:23] VITALS: BP 117/70
[2025-05-31] MEDS ORDERED: Lactobacil 2-S.Thermo-Bifido 1 1 Cap PO SCH (21:00)
--- NOTE | 2025-06-01 04:15 | NUR ---
NO ACUTE CHANGES DURING SHIFT. PATIENT SLEEP DURING SHIFT. WHEN PATIENT WAS AWAKE SHE BECAME IRRITABLE WITH THE STAFF AND USED FOUL LANGUAGE. PATIENT WAS ALSO TEARFUL DURING SHIFT.PATIENT NOT ENTIRELY COOPERATIVE DURING ASSESSMENT OR MED PASS. TRAMADOL GIVEN FOR PAIN. PATIENT IS ABLE TO MAKE NEEDS KNOWN. BED IN LOW POSITION WITH THE WHEELS LOCKED. CALL LIGHT WITHIN REACH.
[2025-06-01 04:51] VITALS: BP 157/80
[2025-06-01 07:04] VITALS: BP 138/88
[2025-06-01] MEDS ORDERED: Nitrofurantoin/Nitrofuran Mac 100 MG Cap PO ONE (11:15)
--- NOTE | 2025-06-01 19:18 | NUR ---
ASSUMED CARE PT A/O X 3-4 PLEASENT AND STATES SHE FEELS MUCH BETTER NOW, PT IS A LITTLE EMOTIONAL AND HAS BEEN CRYING ON AND OFF, PT WAS ABLE TO FEED SELF AND HAS BEEN CALLING MAKING NEEDS KNOWN. MD IN TO ASSESS PT ANDS STATED THAT SHE MAY BE GOING HOME TODAY SINCE SHE CAN NOW MAKE DECISIONS FOR HER SELF.
--- NOTE | 2025-06-01 19:20 | NUR ---
PT IND IN ROOM UP IN SHOWER NO CHANGE IN CONDITION. CALL LIGHT WITHIN REACH MAKES NEEDS KNOWN
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
== END 2025-06-01 18:45 | disposition left against medical advice (07) | DRG 643 ==
LOC: ER 02:01 → EOR 02:02 → MEDS 02:02
PROVIDERS: Student in an Organized Health Care Education/Training Program; ADMIT Hospitalist
DX: E03.9 Hypothyroidism, unspecified (principal); G92.8 Other toxic encephalopathy; G93.41 Metabolic encephalopathy; F05 Delirium due to known physiological condition; F06.2 Psychotic disorder with delusions due to known physiological condition; N39.0 Urinary tract infection, site not specified; F15.151 Other stimulant abuse with stimulant-induced psychotic disorder with hallucinations; F15.150 Other stimulant abuse with stimulant-induced psychotic disorder with delusions; R03.0 Elevated blood-pressure reading, without diagnosis of hypertension; M79.7 Fibromyalgia; G89.29 Other chronic pain; M25.562 Pain in left knee; E87.6 Hypokalemia; R74.01 Elevation of levels of liver transaminase levels; T38.1X6A Underdosing of thyroid hormones and substitutes, initial encounter; D75.839 Thrombocytosis, unspecified; Z53.29 Procedure and treatment not carried out because of patient's decision for other reasons; Z88.5 Allergy status to narcotic agent; Z88.0 Allergy status to penicillin; Z88.2 Allergy status to sulfonamides; Z88.8 Allergy status to other drugs, medicaments and biological substances; Z79.890 Hormone replacement therapy; Z98.1 Arthrodesis status; Z91.138 Patient's unintentional underdosing of medication regimen for other reason
CPT/HCPCS: 36415; 80053; 80320; 82140; 83735; 84439; 84443; 84481; 85025; 94762; 96372; 99285; A9270; G0378; G0480; J2060; J3486

== ENCOUNTER 2025-06-06 17:56 | Emergency (ER) | payer OTHER ==
[~2025-06-06] VITALS: Ht 157.5 cm; Wt 86.2 kg
[2025-06-06 18:08] VITALS: BP 190/92
[2025-06-06 19:19] LABS: BASOPHILS ABSOLUTE AUTO 0.12 K/mm3 (0.00-0.23); BASOPHILS PERCENT AUTO 1 % (0-2); EOSINOPHILS ABSOLUTE AUTO 0.14 K/mm3 (0.00-0.68); EOSINOPHILS PERCENT AUTO 1 % (0-6); Hematocrit 35.3 % (33.0-51.0); Hemoglobin 11.4 g/dL (11.5-16.0); IMMATURE GRAN ABSOLUTE AUTO 0.04 K/mm3 (0.00-0.10); IMMATURE GRAN PERCENT AUTO 0 % (0-1); LYMPHOCYTES ABSOLUTE AUTO 3.05 K/mm3 (0.84-5.20); LYMPHOCYTES PERCENT AUTO 28 % (21-46); MONOCYTES ABSOLUTE AUTO 1.10 K/mm3 (0.16-1.47); MONOCYTES PERCENT AUTO 10 % (4-13); Mean Corpuscular HGB Conc 32.3 g/dL (31.5-36.5); Mean Corpuscular Volume 86 fL (80-100); NEUTROPHILS ABSOLUTE AUTO 6.36 K/mm3 (1.96-9.15); NEUTROPHILS PERCENT AUTO 59 % (41-73); NRBC ABSOLUTE 0.00 K/mm3 (0.00-0.02); NRBC Auto 0.0 /100 WBC (0.0-0.2); Platelet Count 452 K/mm3 (150-400); RDW Coefficient Variation 17.0 % (11.7-14.2); RDW Standard Deviation 52.4 fL (35.1-46.3)
[2025-06-06 19:32] LABS: Ethanol (Alcohol), Blood, Med <3 mg/dL; Salicylate <1.7 mg/dL (2.8-20.0)
[2025-06-06 19:34] LABS: Acetaminophen, Random <2.0 ug/mL (10.0-30.0); Alanine Aminotransfer (ALT/SGP 62 U/L (12-78); Albumin, Blood 4.0 g/dL (3.4-5.0); Albumin/Globulin Ratio 1.2 (0.8-1.8); Anion Gap 9 mmol/L (3-11); Aspartate Aminotrans (AST/SGOT 56 U/L (12-37); Bilirubin, Total 0.9 mg/dL (0.1-1.0); Blood Urea Nitrogen 10 mg/dL (8-24); CO2, Blood 26 mmol/L (21-32); Calcium, Blood 9.3 mg/dL (8.5-10.1); Chloride, Blood 110 mmol/L (98-108); Creatinine, Blood 0.81 mg/dL (0.40-1.00); Globulin, Blood 3.4 g/dL (2.2-4.0); Glucose, Blood 109 mg/dL (70-99); Potassium, Blood 3.6 mmol/L (3.5-5.5); Sodium, Blood 141 mmol/L (136-145); Total Protein, Blood 7.4 g/dL (6.4-8.2)
== END 2025-06-06 19:43 | disposition left against medical advice (07) ==
LOC: ER 17:56
PROVIDERS: Emergency Medicine
DX: R41.82 Altered mental status, unspecified (principal); Z53.29 Procedure and treatment not carried out because of patient's decision for other reasons; E03.9 Hypothyroidism, unspecified; Z88.1 Allergy status to other antibiotic agents; Z88.5 Allergy status to narcotic agent; Z88.0 Allergy status to penicillin; Z88.2 Allergy status to sulfonamides; Z79.890 Hormone replacement therapy; Z79.899 Other long term (current) drug therapy
CPT/HCPCS: 80053; 80320; 85025; 99285; G0480

== ENCOUNTER 2025-07-11 19:21 | Emergency (ER) | payer OTHER ==
[~2025-07-11] VITALS: Ht 157.5 cm; Wt 54.4 kg
[2025-07-11 20:22] VITALS: BP 154/78
[2025-07-11] MEDS ORDERED: DOXY100 PO (20:29)
== END 2025-07-11 21:08 | disposition home or self-care (01) ==
LOC: ER 19:21
DX: L08.9 Local infection of the skin and subcutaneous tissue, unspecified (principal); E03.9 Hypothyroidism, unspecified; Z88.1 Allergy status to other antibiotic agents; Z88.5 Allergy status to narcotic agent; Z88.0 Allergy status to penicillin; Z88.2 Allergy status to sulfonamides; Z79.890 Hormone replacement therapy; Z79.899 Other long term (current) drug therapy
CPT/HCPCS: 99282; A9270

== ENCOUNTER 2025-07-17 13:58 | Emergency (ER) | payer OTHER ==
[~2025-07-17] VITALS: Ht 157.5 cm; Wt 54.4 kg
[2025-07-17 14:06] VITALS: BP 180/70
== END 2025-07-17 15:48 | disposition home or self-care (01) ==
LOC: ER 13:58
DX: R21 Rash and other nonspecific skin eruption (principal)
CPT/HCPCS: 99282

== ENCOUNTER 2025-07-17 16:54 | Emergency (ER) | payer OTHER ==
[~2025-07-17] VITALS: Ht 157.5 cm; Wt 54.4 kg
[2025-07-17 17:27] VITALS: BP 203/90
== END 2025-07-17 19:36 | disposition home or self-care (01) ==
LOC: ER 16:54
DX: F22 Delusional disorders (principal); E03.9 Hypothyroidism, unspecified; F17.200 Nicotine dependence, unspecified, uncomplicated; Z88.1 Allergy status to other antibiotic agents; Z88.0 Allergy status to penicillin; Z88.5 Allergy status to narcotic agent; Z88.2 Allergy status to sulfonamides; Z88.8 Allergy status to other drugs, medicaments and biological substances; Z79.890 Hormone replacement therapy; Z79.899 Other long term (current) drug therapy
CPT/HCPCS: 99282; A9270

== ENCOUNTER 2025-07-28 16:12 | Emergency (ER) | payer OTHER ==
[~2025-07-28] VITALS: Ht 157.5 cm; Wt 65.8 kg
[2025-07-28 17:12] LABS: BASOPHILS ABSOLUTE AUTO 0.09 K/mm3 (0.00-0.23); BASOPHILS PERCENT AUTO 1 % (0-2); EOSINOPHILS ABSOLUTE AUTO 0.19 K/mm3 (0.00-0.68); EOSINOPHILS PERCENT AUTO 2 % (0-6); Hematocrit 35.9 % (33.0-51.0); Hemoglobin 11.5 g/dL (11.5-16.0); IMMATURE GRAN ABSOLUTE AUTO 0.02 K/mm3 (0.00-0.10); IMMATURE GRAN PERCENT AUTO 0 % (0-1); LYMPHOCYTES ABSOLUTE AUTO 2.89 K/mm3 (0.84-5.20); LYMPHOCYTES PERCENT AUTO 31 % (21-46); MONOCYTES ABSOLUTE AUTO 0.95 K/mm3 (0.16-1.47); MONOCYTES PERCENT AUTO 10 % (4-13); Mean Corpuscular HGB Conc 32.0 g/dL (31.5-36.5); Mean Corpuscular Volume 85 fL (80-100); NEUTROPHILS ABSOLUTE AUTO 5.33 K/mm3 (1.96-9.15); NEUTROPHILS PERCENT AUTO 56 % (41-73); NRBC ABSOLUTE 0.00 K/mm3 (0.00-0.02); NRBC Auto 0.0 /100 WBC (0.0-0.2); Platelet Count 516 K/mm3 (150-400); RDW Coefficient Variation 16.1 % (11.7-14.2); RDW Standard Deviation 50.4 fL (35.1-46.3)
[2025-07-28 17:33] LABS: Alanine Aminotransfer (ALT/SGP 45.0 U/L (12-78); Albumin, Blood 3.8 g/dL (3.4-5.0); Albumin/Globulin Ratio 1.1 (0.8-1.8); Anion Gap 5.0 mmol/L (3-11); Aspartate Aminotrans (AST/SGOT 30.0 U/L (12-37); Bilirubin, Total 0.5 mg/dL (0.1-1.0); Blood Urea Nitrogen 14.0 mg/dL (8-24); CO2, Blood 29.0 mmol/L (21-32); Calcium, Blood 9.2 mg/dL (8.5-10.1); Chloride, Blood 106.0 mmol/L (98-108); Creatinine, Blood 0.68 mg/dL (0.40-1.00); Globulin, Blood 3.6 g/dL (2.2-4.0); Glucose, Blood 100.0 mg/dL (70-99); Potassium, Blood 3.9 mmol/L (3.5-5.5); Sodium, Blood 136.0 mmol/L (136-145); Total Protein, Blood 7.4 g/dL (6.4-8.2)
[2025-07-28 18:07] LABS: Prothrombin Time Results 10.5 Sec (9.7-11.5)
[2025-07-28 21:13] VITALS: BP 161/98
[2025-07-28 22:15] LABS: Source, Urine Clean Catch
[2025-07-28 22:21] LABS: Bilirubin, Urine Neg (Neg); Glucose Qualitative, Urine Neg (Neg); Ketones, Urine Neg (Neg); Leukocyte Esterase, Urine Neg (Neg); Protein, Urine Neg (Neg); Specific Gravity, Urine 1.010 (1.003-1.022); Urobilinogen, Urine NORM (Normal)
[2025-07-28 22:26] LABS: Color, Urine Yellow (P-Yellow)
[2025-07-28 22:28] LABS: Red Blood Cells, Urine Not Seen /hpf (0-2); White Blood Cells, Urine Not Seen /hpf (0-5)
== END 2025-07-29 03:43 | disposition home or self-care (01) ==
LOC: ER 16:12
PROVIDERS: Student in an Organized Health Care Education/Training Program
DX: R22.41 Localized swelling, mass and lump, right lower limb (principal); Z88.2 Allergy status to sulfonamides; Z88.5 Allergy status to narcotic agent; Z88.8 Allergy status to other drugs, medicaments and biological substances; Z79.899 Other long term (current) drug therapy
CPT/HCPCS: 73620; 80053; 81001; 83880; 85025; 85610; 85730; 93005; 93010; 93970; 99284-25